=== PATIENT | female | born 1950 | race Caucasian/White ===

== ENCOUNTER 2020-01-21 10:45 | Inpatient (IN) | payer MEDICARE, MEDICAID, SELFPAY ==
[2020-01-21] VITALS (11 sets, daily range): BP systolic 114–152; BP diastolic 56–86; PULSE 75–92; RESP 16–30; TEMP 36.4–37.4; O2SAT 95–100; BMI 20.1
--- NOTE | ~2020-01-21 | CT_ITS ---
EXAMINATION: CTA chest PE protocol DATE: 01/23/2020 18:12 INDICATION: New onset atrial fibrillation TECHNIQUE: Computed tomography angiography (CTA) of the chest was performed with 100 mL Omnipaque-350 intravenous contrast timed to evaluate the pulmonary arteries. Coronal maximum intensity projection 3D-reconstructions were created by the technologist. The dose-length product (DLP) was 169.82 mGy-cm. Automated exposure control and iterative reconstruction technique were employed. COMPARISON: 01/21/2020 FINDINGS: The pulmonary arteries are well-opacified. No pulmonary embolism is identified. There are s mall pleural effusions. No pneumothorax is identified. No pathologically enlarged thoracic lymph node s are identified. The heart size is normal. Multinodular goiter of the left thyroid lobe is again not ed. The gallbladder is surgically absent. There are bridging osteophytes at multiple levels in the sp ine, consistent with diffuse idiopathic skeletal hyperostosis (DISH). IMPRESSION: 1. No pulmonary embolism. 2. Small pleural effusions. Reviewed, dictated and finalized at location A.
--- NOTE | ~2020-01-21 | XR_ITS ---
EXAMINATION: XR chest 2V DATE: 01/21/2020 11:31 INDICATION: Weakness. TECHNIQUE: Frontal and lateral views of the chest were obtained. COMPARISON: CT abdomen and pelvis 10/13/2018 FINDINGS: There is mild scarring at the lung apices. There is a 1 cm nodule in left upper lung zone. No pleural effusion or pneumothorax. The heart size is normal. Surgical clips in the right upper quad rant are likely from cholecystectomy. IMPRESSION: 1. 1 cm nodule in left upper lung zone suspicious for primary bronchogenic carcinoma. Noncontrast [facility] CT is recommended. I called this result to Roberta Daniel on 01/21/20 at 11:47 AM. Reviewed, dictated and finalized at location A. IMPRESSION: 1. 1 cm nodule in left upper lung zone suspicious for primary bronchogenic carc inoma. Noncontrast chest CT is recommended. I called this result to Roberta dhillon on 01/21/20 at 11:47 AM.
--- NOTE | ~2020-01-21 | XR_ITS ---
EXAMINATION: XR retrograde pyelo w/stent LT EXAM DATE: 01/21/2020 15:21 INDICATION: Left-sided stone extraction. TECHNIQUE: Fluoroscopy used during XR retrograde pyelo w/stent LT performed by Dr. Candy Barr MD. The DAP for this procedure was 0.3 mGym2. Cine run(s) available for review. FINDINGS: Left ureter was cannulated, injected. There is mild left hydronephrosis. No ureteral stric tures identified proximally, distal aspect not captured with static image. A left-sided ureteral sten t was placed. Correlate with procedure note. IMPRESSION: Fluoroscopy used during XR retrograde pyelo w/stent LT. Reviewed, dictated and finalized at location A.
--- NOTE | ~2020-01-21 | CT_ITS ---
EXAMINATION: CT chest abdomen pelvis wo con DATE: 01/21/2020 12:30 INDICATION: Lung nodule, right flank pain TECHNIQUE: Transaxial computed tomographic images of the chest, abdomen, and pelvis were obtained wit hout intravenous contrast. The dose-length product (DLP) was 308.40 mGy-cm. Automated exposure contro l and iterative reconstruction technique were employed. COMPARISON: 10/13/2018 FINDINGS: CHEST CT: Minimal dependent atelectasis is present in the lung bases. There are is a focal area of sclerosis in the left posterior fifth rib which accounts for the CT finding in question. No suspicious pulmonary nodule is identified. The lungs are free of acute opacities. No pathologically enlarged thoracic lymp h nodes are identified. The heart size is normal. There is no pleural effusion or pneumothorax. 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 There are bridging osteophytes at multiple levels i n the spine, consistent with diffuse idiopathic skeletal hyperostosis (DISH). ABDOMEN/PELVIS CT: The gallbladder is surgically absent. There is mild enlargement of the common bile duct and central i ntrahepatic ducts which is likely due to post cholecystectomy state. The liver, spleen, pancreas, and adrenal glands are normal. There is a 1.3 cm stone in the left renal pelvis with moderate left hydro ureteronephrosis. A 4.2 cm cyst is noted in the right kidney. There is calcified atherosclerosis of t he aorta and many of the other arteries. No pathologically enlarged abdominal or pelvic lymph nodes a re identified. Colonic diverticulosis is present without evidence of diverticulitis. The appendix is normal. There is mild lumbar spondylosis. IMPRESSION: 1. 1.3 cm stone of the left renal pelvis causing moderate left hydroureteronephrosis. 2. Tiny sclerotic focus of the left fifth rib, likely bone island, accounting for the radiographic fi nding in question. No suspicious pulmonary nodule. Reviewed, dictated and finalized at location A. IMPRESSION: 1. 1.3 cm stone of the left renal pelvis causing moderate left hydroureteroneph rosis. 2. Tiny sclerotic focus of the left fifth rib, likely bone island, accounting f or the radiographic finding in question. No suspicious pulmonary nodule.
--- NOTE | ~2020-01-21 | US_ITS ---
EXAMINATION: US right upper quadrant EXAM DATE: 01/22/2020 07:54 INDICATION: Elevated liver function test. TECHNIQUE: Multiple grayscale and Doppler images of the abdomen right upper quadrant were obtained (chano y a technologist who performed the scan) and subsequently reviewed. Correlation is made to CT chest a bdomen pelvis from 01/21/2020 . FINDINGS: The pancreatic head and body are normal in appearance. The pancreatic tail is not visualized. There is mild liver surface undulations without discrete nodularity. Possible cirrhosis. There are no foc al liver lesions identified. There is no evidence of intrahepatic biliary duct dilation. Portal ve nous flow was seen in the hepatopedal, normal direction and has normal Doppler waveform. No right-si ded hydronephrosis. Common bile duct measures 14 mm, which is dilated, could be results of postcholecystectomy status. Pa ncreatic duct measures 3-4 mm in diameter. IMPRESSION: 1. Some liver surface undulations, possible cirrhosis. 2. Biliary dilation most likely from post cholecystectomy status. If there is elevated bilirubin the n consider evaluation with MRCP. Reviewed, dictated and finalized at location G. IMPRESSION: 1. Some liver surface undulations, possible cirrhosis. 2. Biliary dilation most likely from post cholecystectomy status. If there is elevated bilirubin then consider evaluation with MRCP.
--- NOTE | ~2020-01-21 | US_ITS ---
EXAMINATION: US venous doppler LE BI EXAM DATE: 01/24/2020 12:02 INDICATION: Dysphagia. TECHNIQUE: Modified barium esophagram was performed by myself to administered fluoroscopy, in conjun ction with speech pathologist who administered barium in varying consistencies as per speech patholog ist documentation. This was recorded on tape. The DAP for this procedure was 0.7 Gycm2. FINDINGS: Oral stage: Adequate function. Pharyngeal phase: Adequate function. Laryngeal penetration: None. Aspiration: None. Laryngeal sensitivity: Present. IMPRESSION: Normal modified esophagram exam. Please refer to speech pathologist findings and specifi c feeding recommendations. Reviewed, dictated and finalized at location A. IMPRESSION: Normal modified esophagram exam. Please refer to speech pathologis t findings and specific feeding recommendations.
--- NOTE | 2020-01-21 11:02 | ED.AMS ---
HPI - Altered Mental Status General Chief Complaint: Altered Mental Status <EMILI Dodd Last Filed: 01/21/20 17:44> Stated Complaint: flank pain <EMILI Dodd Last Filed: 01/21/20 17:44> Time Seen by Provider: 01/21/20 10:51 <EMILI Dodd Last Filed: 01/21/20 17:44> Source: patient <EMILI Dodd Last Filed: 01/21/20 17:44> Mode of arrival: EMS <EMILI Dodd Last Filed: 01/21/20 17:44> Limitations: no limitations <EMILI Dodd Last Filed: 01/21/20 17:44> History of Present Illness HPI narrative: This is a 69-year-old female that presents to the emergency department for generalized weakness x1 week. Does not report any other localizing symptoms. Presented via EMS. Per EMS, family member reports patient has been complaining of right flank pain and has had some urinary incontinence. Patient denies fever, chest pain, shortness of breath, abdominal pain, vomiting, dysuria, or hematuria. <EMILI Dodd Last Filed: 01/21/20 17:44> Related Data Home Medications: Home Medications Medication Instructions Recorded Confirmed No Home Medications 01/21/20 01/21/20 <EMILI Dodd Last Filed: 01/21/20 17:44> Allergies/Adverse Reactions: Allergies Allergy/AdvReac Type Severity Reaction Status Date / Time No Known Allergies Allergy Verified 01/21/20 10:51 <EMILI Dodd Last Filed: 01/21/20 17:44> Review of Systems Review of Systems: Narrative: CONSTITUTIONAL: Denies fever ENT: Denies rhinorrhea, congestion CARDIOVASCULAR: Denies chest pain RESPIRATORY: Denies cough or dyspnea. GASTROINTESTINAL: Denies abdominal pain, nausea, vomiting GENITOURINARY: Denies dysuria or hematuria. MUSCULOSKELETAL: Reports back pain, and myalgia. NEUROLOGIC: Reports weakness. Denies headache, numbness <EMILI Dodd Last Filed: 01/21/20 17:44> All systems reviewed & are unremarkable except as noted in HPI and below <Roberta Daniel PA-C - Last Filed: 01/21/20 17:44> PMFSH Past Medical History Medical History: Medical History No active medical problems Renal insufficiency <Roberta Daniel PA-C - Last Filed: 01/21/20 17:44> Surgical History Surgical History: Surgical History History of cholecystectomy <Roberta Daniel PA-C - Last Filed: 01/21/20 17:44> Family History Family History: Family History Other Carcinoma of colon <Roberta Daniel PA-C - Last Filed: 01/21/20 17:44> Social History Social History: Social History Smoking packs per day: 1 Smoking cigarettes per day: 20.0 Years smoked: 10 Smoking pack-years: 10.00 Smoking status: Former smoker Tobacco type: cigarettes Smoking end date: 06/30/88 Alcohol intake: never Substance use: never Substance use type: does not use Spiritual care concerns: No <Roberta Daniel PA-C - Last Filed: 01/21/20 17:44> Exam Narrative: Exam Narrative: GENERAL: Elderly, well-nourished, and in no acute distress. HEAD: Normocephalic, atraumatic. EYES: PERRLA and EOMI. ENT: Nares clear, no rhinorrhea or epistaxis. Mucous membranes moist. Oropharynx without tonsillar hypertrophy exudate or other lesions. Bilateral TMs pearly keller non-bulging NECK: Supple. No adenopathy or masses. CHEST: Clear to auscultation. No respiratory distress. No wheezes rales or rhonchi HEART: Regular rate and rhythm. No murmur heard. Normal peripheral pulses. ABDOMEN: Soft, nontender, nondistended, normal active bowel sounds. No CVA tenderness EXTREMITIES: Normal range of motion. No edema. SKIN: Warm, dry, no rash. NEURO: No focal deficits. Alert and oriented x3. Cranial nerves II throug
[2020-01-21 11:21] LABS: Basophils Percent Auto 0.3 % (0.2-1.2); Hematocrit 36.3 % (37.0-47.0); Hemoglobin 12.3 g/dL (12.0-15.0); Immature Granulocyte Absolute 0.08 K/mm3 (0.00-0.031); Immature Granulocyte Percent A 0.8 % (0-0.5); Lymphocytes Absolute Auto 0.49 K/mm3 (0.9-3.2); Lymphocytes Percent Auto 4.7 % (18.3-44.2); Mean Corpuscular HGB Conc 33.9 g/dl (32-36); Mean Corpuscular Hemoglobin 32.3 pg (26-34); Mean Corpuscular Volume 95.3 fl (80-100); Mean Platelet Volume 12.1 fl (7.4-10.4); Monocytes Absolute Auto 1.4 K/mm3 (0.1-0.6); Monocytes Percent Auto 13.4 % (2.6-8.5); Neutrophils Absolute Auto 8.4 K/mm3 (1.3-6.7); Neutrophils Percent Auto 80.8 % (45.5-73.1); Platelet Count Result 150 k/mm3 (150-375); Red Blood Count 3.81 M/mm3 (4.2-5.4); Red Cell Distribution Width 12.6 % (11.5-14.5); White Blood Count 10.4 K/mm3 (4.5-10.0)
--- NOTE | 2020-01-21 11:22 | ECG_ITS ---
Measurements Intervals [place] Rate: 81 P: 48 VT: 181 QRS: 41 QRSD: 101 T: 68 QT: 335 QTc: 391 Interpretive Statements SINUS RHYTHM EARLY PRECORDIAL R/S TRANSITION BASELINE ARTIFACT- I, III BORDERLINE ECG Electronically Signed On 01-21-2020 13:34:23 CDT by Best Newman D.O.
[2020-01-21 11:32] LABS: Lactic Acid Reflex 1.3 mmol/L (0.7-2.1)
[2020-01-21 11:34] LABS: Alanine Aminotransferase 36 U/L (4-35); Albumin Level 3.8 g/dL (3.5-5.1); Alkaline Phosphatase 118 U/L (38-126); Anion Gap 13.1 mmol/L (7-16); Aspartate Amino Transferase 67 U/L (14-36); Bilirubin,Total 1.6 mg/dL (0.2-1.3); Blood Urea Nitrogen 35 mg/dL (7-17); Calcium 10.6 mg/dL (8.4-10.2); Carbon Dioxide 25 mmol/L (22-30); Chloride 101 mmol/L (98-107); Estimated CRCL calculation 32 ml/min; Estimated Glomerular Filt Rate 40; Glucose 112 mg/dL (65-105); Potassium 4.1 mmol/L (3.4-5.0); Sodium 135 mmol/L (137-145)
[2020-01-21 11:38] LABS: Add Urine Microscopic? YES; Appearance Urine Cloudy (Clear); Bacteria Urine 3+ /hpf; Bilirubin Urine Negative (Negative); Blood Urine 2+ (Negative); Color Urine Amber (Yellow); Glucose Urine UA Negative (Negative); Ketones Urine Negative (Negative); Leukocyte Esterase Ur 3+ LEU/UL (Negative); Mucus Urine Few /lpf; Nitrate Urine Negative (Negative); Protein Urine 2+ mg/dL (Negative); Specific Grav Ur 1.021 (1.001-1.035); Squamous Epithelial Cell Urine Occasional /hpf (Few); WBC Clumps Urine Present /HPF; WBC Urine >75 /hpf
[2020-01-21] MEDS: SODIUM CHLORIDE 0.9% IV 1,000 ML 999 ML IV CONT (12:46)
--- NOTE | 2020-01-21 14:10 | WPDANESEPPF ---
Anes - Initial Pre Proc Eval Procedure: Operation Date: 01/21/20 14:30 Proposed Procedures p CYSTOSCOPY,LEFT STENT PLACEMENT - Candy Barr MD Date/Time: 01/21/20 14:10 Pre Op Diagnosis: UTI, MICAELA, Renal Stone Patient Data Age: 69 Gender: F Height: 1.68 m Weight: 56.7 kg Last Vital Signs Temp 37.1 C 01/21/20 10:46 Pulse 83 01/21/20 14:00 Resp 16 01/21/20 14:00 BP 142/78 H 01/21/20 14:00 Pulse Ox 98 01/21/20 14:00 Allergies Allergy/AdvReac Type Severity Reaction Status Date / Time No Known Allergies Allergy Verified 01/21/20 10:51 Home Medications Medication Instructions Recorded Confirmed Type apixaban [Eliquis] 5 mg PO Q12HR #60 tablet 01/24/20 Rx cefdinir 300 mg PO Q12H 11 Days #22 cap 01/24/20 Rx cyanocobalamin (vitamin B-12) 1,000 mcg PO QAM #30 tablet 01/24/20 Rx [Vitamin B-12] metoprolol succinate 12.5 mg PO QAM #30 tablet 01/24/20 Rx Laboratory Tests 01/21/20 01/21/20 01/21/20 11:14 11:14 11:14 WBC 10.4 K/mm3 H K/mm3 (4.5-10.0) RBC 3.81 M/mm3 L M/mm3 (4.2-5.4) Hgb 12.3 g/dL g/dL (12.0-15.0) Hct 36.3 % L % (37.0-47.0) MCV 95.3 fl fl (80-100) MCH 32.3 pg pg (26-34) MCHC 33.9 g/dl g/dl (32-36) RDW 12.6 % % (11.5-14.5) Plt Count 150 k/mm3 k/mm3 (150-375) MPV 12.1 fl H fl (7.4-10.4) Immature Gran % (Auto) 0.8 % H % (0-0.5) Neut % (Auto) 80.8 % H % (45.5-73.1) Lymph % (Auto) 4.7 % L % (18.3-44.2) [place] % (Auto) 13.4 % H % (2.6-8.5) Eos % (Auto) 0.0 % % (0-4.4) Baso % (Auto) 0.3 % % (0.2-1.2) Lymph # (Auto) 0.49 K/mm3 L K/mm3 (0.9-3.2) [place] # (Auto) 1.4 K/mm3 H K/mm3 (0.1-0.6) Eos # (Auto) 0.0 K/mm3 K/mm3 (0-0.3) Baso # (Auto) 0.0 K/mm3 K/mm3 (0.0-0.1) Abs Immat Gran (auto) 0.08 K/mm3 H K/mm3 (0.00-0.031) Absolute Neuts (auto) 8.4 K/mm3 H K/mm3 (1.3-6.7) Absolute Nucleated RBC 0.0 K/mm3 K/mm3 (0.0-0.012) Nucleated RBC % 0.0 % % (0.0-0.2) Sodium 135 mmol/L L mmol/L (137-145) Potassium 4.1 mmol/L mmol/L (3.4-5.0) Chloride 101 mmol/L mmol/L (98-107) Carbon Dioxide 25 mmol/L mmol/L (22-30) Anion Gap 13.1 mmol/L mmol/L (7-16) BUN 35 mg/dL H mg/dL (7-17) Creatinine 1.30 mg/dL H mg/dL (0.7-1.0) Estim Creat Clear Calc 32 ml/min ml/min Estimated GFR 40 L (59 - ) Glucose 112 mg/dL H mg/dL (65-105) Lactic Acid 1.3 mmol/L mmol/L (0.7-2.1) Calcium 10.6 mg/dL H mg/dL (8.4-10.2) Total Bilirubin 1.6 mg/dL H mg/dL (0.2-1.3) AST 67 U/L H U/L (14-36) ALT 36 U/L H U/L (4-35) Alkaline Phosphatase 118 U/L U/L (38-126) Total Protein 7.0 g/dL g/dL (6.3-8.2) Albumin 3.8 g/dL g/dL (3.5-5.1) Urine Color Urine Appearance Urine pH Ur Specific [place] Urine Protein Urine Glucose (UA) Urine Ketones Ur Blood (Man) Urine Nitrate Urine Bilirubin Urine Urobilinogen Leukocyte Esterase Rfl Urine RBC Urine WBC Urine WBC Clumps Ur Squamous Epith Cells Urine Bacteria Urine Mucus 01/21/20 11:17 WBC RBC Hgb Hct MCV MCH MCHC RDW Plt Count MPV Immature Gran % (Auto) Neut % (Auto) Lymph % (Auto) [place] % (Auto) Eos % (Auto) Baso % (Auto) Lymph # (Auto) [place] # (Auto) Eos # (Auto) Baso # (Auto) Abs Immat Gran (auto) Absolute Neuts (auto) Absolute Nucleate
--- NOTE | 2020-01-21 14:25 | PC.NURSE ---
To preop via wc. Condition stable.
[2020-01-21] MEDS: LACTATED RINGERS 1,000 ML 30 ML IV CONT (14:30)
--- NOTE | 2020-01-21 14:30 | WPDURCON ---
Assessment and Plan Assessment and plan (1) UTI (urinary tract infection): Code(s): N39.0 - Urinary tract infection, site not specified Status: Acute (2) Left renal stone: Code(s): N20.0 - Calculus of kidney Status: Acute Assessment and Plan: 13mm left UPJ stone with hydronephrosis and UTI with acute renal insufficency - plan cystoscopy and left ureteral stent insertion. Risks, benefits and alternatives discussed. Pt agrees to proceed. She understands need for deferred definitive stone management after clearance of infection. - Admit for IV antibiotics (3) Renal insufficiency: Code(s): N28.9 - Disorder of kidney and ureter, unspecified Status: Inactive Urology Consult Note HPI Date Seen: 01/21/20 Requesting Physician: Candy Barr MD 69 yo F presented to ER with complaints of dysuria and concern for UTI. She was found to have left renal stone on imaging. Primary Care Provider: [employer] PHYSICIAN Consult Narrative Narrative: Juany Quintero is a 69 year old female Review of Systems Constitutional: Constitutional: Reports no additional constitutional complaints Eyes: Eyes: Reports no additional eye complaints ENT: Reports Normal hearing present Cardiovascular: Cardiovascular: Reports no additional cardiovascular complaints Respiratory: Respiratory: Reports no additional respiratory complaints Gastrointestinal: Gastrointestinal: Reports no additional gastrointestinal complaints Genitourinary: Genitourinary: Reports nocturia and Reports dysuria Musculoskeletal: Musculoskeletal: Reports no additional musculoskeletal complaints Neurologic: Reports system reviewed and no additional complaints, except as documented Psychiatric: Psychiatric: Reports no additional psychiatric complaints [facility] Past Medical History Medical History (Updated 01/21/20 @ 14:42 by Kwabena Duran MD) No active medical problems Renal insufficiency Surgical History Surgical History (Updated 01/21/20 @ 11:05 by Roberta Daniel PA-C) History of cholecystectomy Family History Family History (Updated 11/04/18 @ 10:17 by DOCTOR UNKNOWN) Other Carcinoma of colon Social History Social History Smoking status: Former smoker Smoking end date: 06/30/88 Alcohol intake: never Meds Home Medications and Allergies Home Medications Medication Instructions Recorded Confirmed Type No Home Medications 01/21/20 01/21/20 History Allergies Allergy/AdvReac Type Severity Reaction Status Date / Time No Known Allergies Allergy Verified 01/21/20 10:51 Vital Signs Vital Signs - 24 hr 01/21/20 10:46 01/21/20 14:00 Temperature 98.8 F Pulse Rate 82 83 Respiratory Rate 16 16 Blood Pressure 139/86 142/78 H Pulse Oximetry 98 98 Exam Const: General: no acute distress HENMT: Ears: TM's normal bilaterally Eyes: General: appearance normal, both eyes and all related structures Resp: Auscultation: clear to auscultation bilaterally Cardio: Rate: regular rate Rhythm: regular rhythm Results Labs CBC & Chem 7: 01/21/20 11:14 01/21/20 11:14 Labs: Short CBC 01/21/20 Range/Units 11:14 WBC 10.4 H (4.5-10.0) K/mm3 Hgb 12.3 (12.0-15.0) g/dL Hct 36.3 L (37.0-47.0) % Plt Count 150 (150-375) k/mm3 BMP 01/21/20 11:14 Sodium 135 L Potassium 4.1 Chloride 101 Carbon Dioxide 25 BUN 35 H Creatinine 1.30 H Glucose 112 H Calcium 10.6 H Liver Function 01/21/20 Range/Units 11:14 Total Bilirubin 1.6 H (0.2-1.3) mg/dL AST 67 H (14-36) U/L ALT 36 H (4-35) U/L Alkaline Phosphatase 118 (38-126) U/L Albumin 3.8 (3.5-5.1) g/dL Urine 01/21/20 Range/Units 11:17 Urine Color [place] (Yellow) Urine Appearance Cloudy H (Clear) Urine pH 5.0 (5.0-9.0) Ur Specific [place] 1.021 (1.001-1.035) Urine Protein 2+ H (Negative) mg/dL Urine Glucose (UA
--- NOTE | 2020-01-21 14:41 | WPDANESEPPF ---
Anes - Initial Pre Proc Eval Procedure: Operation Date: 01/21/20 14:30 Proposed Procedures p CYSTOSCOPY,LEFT STENT PLACEMENT - Candy Barr MD Date/Time: 01/21/20 14:41 Surgeon: Candy Barr MD Pre Op Diagnosis: flank pain Patient Data Age: 69 Gender: F Height: 5 ft 6 in Weight: 56.7 kg Last Vital Signs Temp 37.1 C 01/21/20 10:46 Pulse 83 01/21/20 14:00 Resp 16 01/21/20 14:00 BP 142/78 H 01/21/20 14:00 Pulse Ox 98 01/21/20 14:00 Allergies Allergy/AdvReac Type Severity Reaction Status Date / Time No Known Allergies Allergy Verified 01/21/20 10:51 Home Medications Medication Instructions Recorded Confirmed Type No Home Medications 01/21/20 01/21/20 History Laboratory Tests 01/21/20 01/21/20 01/21/20 11:14 11:14 11:14 WBC 10.4 K/mm3 H K/mm3 (4.5-10.0) RBC 3.81 M/mm3 L M/mm3 (4.2-5.4) Hgb 12.3 g/dL g/dL (12.0-15.0) Hct 36.3 % L % (37.0-47.0) MCV 95.3 fl fl (80-100) MCH 32.3 pg pg (26-34) MCHC 33.9 g/dl g/dl (32-36) RDW 12.6 % % (11.5-14.5) Plt Count 150 k/mm3 k/mm3 (150-375) MPV 12.1 fl H fl (7.4-10.4) Immature Gran % (Auto) 0.8 % H % (0-0.5) Neut % (Auto) 80.8 % H % (45.5-73.1) Lymph % (Auto) 4.7 % L % (18.3-44.2) [place] % (Auto) 13.4 % H % (2.6-8.5) Eos % (Auto) 0.0 % % (0-4.4) Baso % (Auto) 0.3 % % (0.2-1.2) Lymph # (Auto) 0.49 K/mm3 L K/mm3 (0.9-3.2) [place] # (Auto) 1.4 K/mm3 H K/mm3 (0.1-0.6) Eos # (Auto) 0.0 K/mm3 K/mm3 (0-0.3) Baso # (Auto) 0.0 K/mm3 K/mm3 (0.0-0.1) Abs Immat Gran (auto) 0.08 K/mm3 H K/mm3 (0.00-0.031) Absolute Neuts (auto) 8.4 K/mm3 H K/mm3 (1.3-6.7) Absolute Nucleated RBC 0.0 K/mm3 K/mm3 (0.0-0.012) Nucleated RBC % 0.0 % % (0.0-0.2) Sodium 135 mmol/L L mmol/L (137-145) Potassium 4.1 mmol/L mmol/L (3.4-5.0) Chloride 101 mmol/L mmol/L (98-107) Carbon Dioxide 25 mmol/L mmol/L (22-30) Anion Gap 13.1 mmol/L mmol/L (7-16) BUN 35 mg/dL H mg/dL (7-17) Creatinine 1.30 mg/dL H mg/dL (0.7-1.0) Estim Creat Clear Calc 32 ml/min ml/min Estimated GFR 40 L (59 - ) Glucose 112 mg/dL H mg/dL (65-105) Lactic Acid 1.3 mmol/L mmol/L (0.7-2.1) Calcium 10.6 mg/dL H mg/dL (8.4-10.2) Total Bilirubin 1.6 mg/dL H mg/dL (0.2-1.3) AST 67 U/L H U/L (14-36) ALT 36 U/L H U/L (4-35) Alkaline Phosphatase 118 U/L U/L (38-126) Total Protein 7.0 g/dL g/dL (6.3-8.2) Albumin 3.8 g/dL g/dL (3.5-5.1) Urine Color Urine Appearance Urine pH Ur Specific [place] Urine Protein Urine Glucose (UA) Urine Ketones Ur Blood (Man) Urine Nitrate Urine Bilirubin Urine Urobilinogen Leukocyte Esterase Rfl Urine RBC Urine WBC Urine WBC Clumps Ur Squamous Epith Cells Urine Bacteria Urine Mucus 01/21/20 11:17 WBC RBC Hgb Hct MCV MCH MCHC RDW Plt Count MPV Immature Gran % (Auto) Neut % (Auto) Lymph % (Auto) [place] % (Auto) Eos % (Auto) Baso % (Auto) Lymph # (Auto) [place] # (Auto) Eos # (Auto) Baso # (Auto) Abs Immat Gran (auto) Absolute Neuts (auto) Absolute Nucleated RBC Nucleated RBC % Sodium Potassium Chloride Carbon Dioxide Anion Gap BUN Creatinine Estim Creat Clear Calc Estimated GF
[2020-01-21] MEDS: LIDOCAINE HCL 2% GEL UROJET 10 ML PKG MUCOUS MEM (15:00)
--- NOTE | 2020-01-21 16:46 | ADMGEN ---
This patient, Juany Quintero, was admitted to 2 Medical Room 257-01. Patient/family oriented to hospital policies and general routines including ID bracelet, bed and alarms, visiting hours, pain management, procedures, bathroom and other care routines, personal items, smoking policy, room service/diet, and visiting hours. Valuables list has been completed. Information on how to activate the Rapid Response Team has been discussed. Patient/Family are encouraged to report perceived risks to care and to ask questions if they do not understand what they are told or what they should do.
[2020-01-21] MEDS: SODIUM CHLORIDE 0.9% IV 1,000 ML 125 ML IV CONT (17:30)
--- NOTE | 2020-01-21 19:00 | PM.IMHP ---
H&P: HPI History of Present Illness Chief complaint: flank pain Narrative: Juany Quintero is a 69-year-old female without significant medical history who presented to the emergency department earlier this afternoon via EMS from home for evaluation of right flank pain. For approximately 1 week she has had intermittent right flank pain that she describes as an ache. It has not been severe enough for her to take analgesics. The pain does not radiate. She has not noticed any significant aggrevating or alleviating factors. Associated symptoms include a decreased appetite, low energy, fatigue , and urinary incontinence. Her family members finally talked her into coming to the emergency department today and she was found to have a 1.3 centimeter left renal pelvis stone with moderate left hydroureteronephrosis. She is now status post cystoscopy with ureteral stent per Dr. Barr. At the time my evaluation she is sleepy but other than that has no complaints. She did eat a small amount of dinner this evening. She denies fever, chills, sweats, nausea, and vomiting. No dysuria or hematuria. No previous history of kidney stones. Review of Systems Review of Systems: Narrative: Twelve systems were reviewed with pertinent positives and negatives as per HPI. No recent cold or flu symptoms. She denies travel and sick contacts. No cough or shortness of breath. She did have some loose stools earlier this morning. Except as documented, all other systems were reviewed and are negative. [facility] Past Medical History Medical History (Updated 01/21/20 @ 23:02 by Fiona Smith PA-C) Nephrolithiasis Osteoarthritis Surgical History Surgical History History of cholecystectomy Family History Family History (Updated 01/21/20 @ 22:57 by Fiona Smith PA-C) Mother Carcinoma of colon Social History Social History (Updated 01/21/20 @ 22:58 by Fiona Smith PA-C) Social History: Surrogate decision maker: Loretta Maya, daughter. Code status: Full code. Smoking packs per day: 1 Smoking cigarettes per day: 20.0 Years smoked: 10 Smoking pack-years: 10.00 Smoking status: Former smoker Tobacco type: cigarettes Smoking end date: 06/30/88 Alcohol intake: never Substance use: never Substance use type: does not use Additional living arrangements comments: The patient lives in [place] with her grandson and 2 dogs. 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 Spiritual care concerns: No Meds Home Medications and Allergies Home Medications Medication Instructions Recorded Confirmed Type No Home Medications 01/21/20 01/21/20 History Allergies Allergy/AdvReac Type Severity Reaction Status Date / Time No Known Allergies Allergy Verified 01/21/20 10:51 Vital Signs Vital Signs - 24 hr 01/21/20 10:46 01/21/20 14:00 01/21/20 14:30 Temperature 98.8 F 98.8 F Pulse Rate 82 83 90 Respiratory Rate 16 16 Blood Pressure 139/86 142/78 H 139/72 Pulse Oximetry 98 98 100 01/21/20 15:18 01/21/20 15:30 01/21/20 15:45 Temperature 97.5 F L Pulse Rate 85 78 80 Respiratory Rate 30 H 27 H 24 H Blood Pressure 114/77 137/71 140/71 Pulse Oximetry 100 95 96 01/21/20 16:00 01/21/20 16:15 01/21/20 16:30 Temperature Pulse Rate 80 82 75 Respiratory Rate 20 20 16 Blood Pressure 142/72 H 144/76 H 147/66 H Pulse Oximetry 98 97 98 01/21/20 16:51 01/21/20 20:00 Temperature 97.8 F 99.4 F Pulse Rate 83 92 Respiratory Rate 20 20 Blood Pressure 152/67 H 152/56 H Pulse Oximetry 99 97 Exam Narrative: Exam Narrative: General: Well-developed elderly female sitting up in bed in no distress. Weight: 56.7 Kilograms. BMI: 20.2. HEENT: She is slightly hard of hearing. Wearing corrective lenses. PERRL, EOMI. Sclerae anicteric. Oral mucosa tacky. Neck: Supple. Respiratory: Lungs are clear to
--- NOTE | 2020-01-21 20:48 | OP_ITS ---
DATE OF PROCEDURE: 01/21/2020 PREOPERATIVE DIAGNOSES: Left ureteral stone with hydronephrosis and urinary tract infection. POSTOPERATIVE DIAGNOSIS: Left ureteral stone with hydronephrosis and urinary tract infection. PROCEDURE PERFORMED: 1. Cystoscopy. 2. Left retrograde pyelogram. 3. Left ureteral stent insertion. DESCRIPTION OF PROCEDURE: Informed consent was obtained. The patient was taken to the operating room and given preoperative IV antibiotics. She was induced anesthesia and she was placed in dorsal lithotomy position, prepped and draped in normal sterile fashion. We inserted a 22-Irish cystoscope through the urethra in the bladder. There was diffuse irritation consistent with the patient's known UTI. There were no tumors or lesions. The patient has bilateral orthotopic orifices. We cannulated the orifices with the wire. We then performed a retrograde pyelogram that revealed moderate left hydronephrosis of the large UPJ stone. I was able to manipulate the wire past the stone. We then placed a 4.8 variable length stent with a curl in renal pelvis, curl in the bladder. The bladder was emptied via the Os[place] catheter. The patient was taken to recovery in stable condition. IV FLUIDS: Per Anesthesia. COMPLICATIONS: None. ESTIMATED BLOOD LOSS: Minimal. FOLLOWUP: The patient will be admitted to the hospital for IV antibiotics. We will plan for definitive stone management as an outpatient. Shaquille I MT: Felipe
[2020-01-21] MEDS: SODIUM CHLORIDE 0.9% IV 1,000 ML 75 ML IV CONT (23:25)
[2020-01-22] VITALS (8 sets, daily range): BP systolic 100–123; BP diastolic 51–71; PULSE 69–110; RESP 16–20; TEMP 36.1–37.5; O2SAT 95–99
--- NOTE | 2020-01-22 | ECHO_ITS ---
Patient Info Name: Juany Quintero Age: 69 years : 1950 Gender: Female Ht: 66 in Wt: 125 lbs BSA: 1.62 m2 HR: 94 bpm BP: 106 / 65 mmHg Heart Rhythm: Atrial Fibrillation Technical Quality: Good Exam Date: 01/22/2020 2:26 PM Exam Location: [facility] Patient Status: Outpatient Admit Date: 01/21/2020 Staff Ordering Physician: Demetria Dockery PA-C Senior Research Analyst: Amelia Hernandez RDCS Attending Provider: Demetria Dockery PA-C Referring Physician: Nahed LEE; Exam Type: CA echo doppler color flow Summary 1. Left ventricular systolic function is normal, estimated at 55-60%. 2. There is no increased left ventricular wall thickness. 3. Right ventricular systolic function is mildly reduced, TAPSE 1.7. 4. Right ventricular chamber dimension is normal. 5. Prominent moderator band. 6. There is no aortic valve stenosis. 7. There is mild mitral valve regurgitation. 8. There is mild tricuspid valve regurgitation. 9. No pulmonary hypertension, estimated pulmonary arterial systolic pressure is 18 mmHg. Left Ventricle Left ventricular chamber dimension is normal. Left ventricular systolic function is normal, estimated at 55-60%. There is no increased left ventricular wall thickness. The left ventricular diastolic function is indeterminate. Right Ventricle Right ventricular chamber dimension is normal. Right ventricular systolic function is mildly reduced, TAPSE 1.7. Prominent moderator band. Left Atria Left atrial chamber dimension is normal. Right Atria Right atrial chamber dimension is normal. Aortic Valve The aortic valve is trileaflet. There is mild aortic valve sclerosis. There is no aortic valve stenosis. There is trace aortic valve regurgitation. Pulmonic Valve The pulmonic valve is not well visualized. There is trace pulmonic regurgitation. Mitral Valve The mitral valve has normal leaflets. There is mild mitral valve regurgitation. The mitral valve annulus is mildly calcified. Tricuspid Valve The tricuspid valve leaflets are normal. There is mild tricuspid valve regurgitation. No pulmonary hypertension, estimated pulmonary arterial systolic pressure is 18 mmHg. Pericardium/Pleural The pericardium appears normal. There is no pericardial effusion. Inferior Vena Cava Normal inferior vena cava with >50% collapse upon inspiration consistent with normal right atrial pressure, 5 mmHg. Aorta The aortic root size at the sinus of Valsalva is normal. There is mild aortic atherosclerosis. Left Ventricular Outflow Tract Name Value Normal LVOT 2D LVOT Diameter 1.9 cm LVOT Doppler LVOT Peak Gradient 1 mmHg LVOT Mean Gradient 0 mmHg LVOT VTI 12 cm LVOT VTI/AV VTI Ratio 0.7 LVOT Stroke Volume 32 ml LVOT CO 3.5 l/min LVOT CI 2.2 l/min/m2 Pulmonic Valve Name
[2020-01-22 05:52] LABS: Basophils Percent Auto 0.2 % (0.2-1.2); Eosinophils Percent Auto 0.3 % (0-4.4); Hematocrit 35.7 % (37.0-47.0); Hemoglobin 11.7 g/dL (12.0-15.0); Immature Granulocyte Absolute 0.07 K/mm3 (0.00-0.031); Immature Granulocyte Percent A 0.8 % (0-0.5); Lymphocytes Absolute Auto 0.63 K/mm3 (0.9-3.2); Lymphocytes Percent Auto 6.8 % (18.3-44.2); Mean Corpuscular HGB Conc 32.8 g/dl (32-36); Mean Corpuscular Hemoglobin 31.7 pg (26-34); Mean Corpuscular Volume 96.7 fl (80-100); Mean Platelet Volume 12.2 fl (7.4-10.4); Monocytes Absolute Auto 1.2 K/mm3 (0.1-0.6); Monocytes Percent Auto 13.5 % (2.6-8.5); Neutrophils Absolute Auto 7.2 K/mm3 (1.3-6.7); Neutrophils Percent Auto 78.4 % (45.5-73.1); Platelet Count Result 157 k/mm3 (150-375); Red Blood Count 3.69 M/mm3 (4.2-5.4); Red Cell Distribution Width 12.8 % (11.5-14.5); White Blood Count 9.2 K/mm3 (4.5-10.0)
[2020-01-22 06:50] LABS: Alanine Aminotransferase 48 U/L (4-35); Albumin Level 3.1 g/dL (3.5-5.1); Alkaline Phosphatase 111 U/L (38-126); Anion Gap 8.8 mmol/L (7-16); Aspartate Amino Transferase 86 U/L (14-36); Bilirubin,Total 1.1 mg/dL (0.2-1.3); Blood Urea Nitrogen 24 mg/dL (7-17); Calcium 10.1 mg/dL (8.4-10.2); Carbon Dioxide 26 mmol/L (22-30); Chloride 106 mmol/L (98-107); Estimated CRCL calculation 41 ml/min; Estimated Glomerular Filt Rate 55; Glucose 100 mg/dL (65-105); Potassium 3.8 mmol/L (3.4-5.0); Sodium 137 mmol/L (137-145)
[2020-01-22 07:26] LABS: Hepatitis B Surface Antigen Negative (Negative)
[2020-01-22] MEDS: SODIUM CHLORIDE 0.9% IV 1,000 ML 75 ML IV CONT (07:26)
[2020-01-22 07:31] LABS: HAV RESULT Negative (Negative); Hepatitis B Core IgM Result Negative (Negative)
[2020-01-22 07:43] LABS: Hepatitis C Virus Antibody Negative (Negative)
--- NOTE | 2020-01-22 09:32 | WPDUROPN2 ---
Progress Note: A&P Assessment and Plan (1) Urinary tract infection: Code(s): N39.0 - Urinary tract infection, site not specified Status: Acute (2) Hydroureteronephrosis: Code(s): N13.30 - Unspecified hydronephrosis Status: Acute (3) Left renal stone: Code(s): N20.0 - Calculus of kidney Status: Acute Assessment and Plan: POD#1 s/p L stent placement - remove keyes - continue IV abx; awaiting urine and blood cx results - will need definitive ESWL with Dr. Barr as an outpt once infection resolves. Subjective Subjective Date/Time Seen: 01/22/20 09:32 POD#1 s/p L stent placement. Doing well. No pain. Keyes is bothering her. Awaiting culture results Review of Systems Review of Systems: All systems reviewed & are unremarkable except as noted in HPI and below Exam Narrative: Exam Narrative: 69 yo WF in NAD Const: General: cooperative, healthy appearing and no acute distress HENMT: Head: normal to inspection Ears: hearing grossly normal bilaterally Neck: Neck: normal visual inspection Resp: Effort & Inspection: normal respiratory effort GI: Inspection: normal to inspection GI Palp: No abdominal tenderness Urinary Catheter: Urinary Catheter: patent and draining (yoni urine) Neuro: General: patient oriented x3 Objective Data Vital Signs Vital Signs: Vital Signs - 24 hr 01/21/20 10:46 01/21/20 14:00 01/21/20 14:30 Temperature 37.1 C 37.1 C Pulse Rate 82 83 90 Respiratory Rate 16 16 Blood Pressure 139/86 142/78 H 139/72 Pulse Oximetry 98 98 100 01/21/20 15:18 01/21/20 15:30 01/21/20 15:45 Temperature 36.4 C L Pulse Rate 85 78 80 Respiratory Rate 30 H 27 H 24 H Blood Pressure 114/77 137/71 140/71 Pulse Oximetry 100 95 96 01/21/20 16:00 01/21/20 16:15 01/21/20 16:30 Temperature Pulse Rate 80 82 75 Respiratory Rate 20 20 16 Blood Pressure 142/72 H 144/76 H 147/66 H Pulse Oximetry 98 97 98 01/21/20 16:51 01/21/20 20:00 01/22/20 01:12 Temperature 36.6 C 37.4 C 36.8 C Pulse Rate 83 92 Respiratory Rate 20 20 Blood Pressure 152/67 H 152/56 H Pulse Oximetry 99 97 01/22/20 06:11 Temperature 36.1 C L Pulse Rate 104 H Respiratory Rate 18 Blood Pressure 100/51 L Pulse Oximetry 95 Intake/Output Intake/Output: Intake & Output 01/19/20 01/20/20 01/21/20 01/22/20 23:59 23:59 23:59 23:59 Intake Total 1670 1000 Output Total 50 750 Balance 1620 250 Meds/Results Medications: Active Medications Generic Name Dose Route Start Last Admin Trade Name Freq PRN Reason Stop Dose Admin Hydrocodone Bitart/Acetaminophen 1 tab 01/21/20 16:34 01/22/20 05:07 [place] 5-325 Mg PO 1 tab Q4H PRN Administration Pain Rated 4-6 Fentanyl Citrate 25 mcg 01/21/20 14:08 Sublimaze IV PUSH Q2M PRN Pain Hydromorphone HCl 0.25 mg 01/21/20 14:08 Dilaudid Inj IV PUSH Q5M PRN Pain Ceftriaxone Sodium/Dextrose 1 gm in 50 mls @ 100 mls/hr 01/22/20 12:00 Rocephin 1 Gm/D5w 50 Ml IVPB Q24H DAYDAY Sodium Chloride 1,000 mls @ 75 mls/hr 01/21/20 23:10 01/22/20 07:26 Normal Saline Iv IV CONT 75 mls/hr .[id number] DAYDAY Administration Ondansetron HCl 4 mg 01/21/20 14:08 Zofran Inj IV PUSH ONCE PRN Nausea Radiology Results: ITS Impressions Chest X-Ray 01/21/20 11:45 IMPRESSION: 1. 1 cm nodule in left upper lung zone suspicious for primary bronchogenic carcinoma. Noncontrast chest CT is recommended. I called this result to Roberta Daniel on 01/21/20 at 11:47 AM. Chest/Abdomen/Pelvis CT 01/21/20 12:35 IMPRESSION: 1. 1.3 cm stone of the left renal pelvis causing moderate left hydroureteronephrosis. 2. Tiny sclerotic focus of the left fifth rib, likely bone island, accounting for the radiographic finding in question. No suspicious pulmonary nodule. Retrograde Pyelogram 01/21/20 16:50 IMPRESSION: Fluoroscopy used during XR retrograde pyelo w/stent LT.
--- NOTE | 2020-01-22 11:50 | ECG_ITS ---
Measurements Intervals [place] Rate: 92 P: [place]: 0 QRS: 51 QRSD: 94 T: 73 QT: 333 QTc: 412 Interpretive Statements ATRIAL FIBRILLATION BASELINE ARTIFACT- AVL ABNORMAL ECG Electronically Signed On 01-22-2020 13:46:31 CDT by Best Newman D.O.
--- NOTE | 2020-01-22 13:12 | PM.IMPN ---
Progress Note: A&P Assessment and Plan (1) New onset a-fib: Code(s): I48.91 - Unspecified atrial fibrillation Status: Acute Assessment and Plan: ----- AFib noted on exam and confirmed on EKG. she does not have any history of atrial fibrillation but also does not go to the doctor. At this time it is likely from her infection but I will draw a TSH and get an echo just to be sure. Patient will be placed on Lovenox at this time and I will talk to care coordination about anticoagulation. Her CHADS2 Vasc score is 3. No rate controlling medications needed at this time as she has been rate controlled. We will watch her on telemetry to see if that changes. Plan for cardiology follow-up outpatient. I briefly spoke with Dr. Groves about plan of care and agrees with outpatient follow up. (2) Bacteremia: Code(s): R78.81 - Bacteremia Status: Acute Assessment and Plan: -----Noted in 1/2 blood cultures at this time. Likely 2/2 to UTI. Continue ceftriaxone and await identification. (3) Left renal stone: Code(s): N20.0 - Calculus of kidney Status: Acute Assessment and Plan: ----- 13mm stone noted in the left renal pelvis with associated moderate hydroureteronephrosis. She underwent cystoscopy 01/10 with left ureteral stent placement per Dr. Solano. Urology onboard. (4) Hydroureteronephrosis: Code(s): N13.30 - Unspecified hydronephrosis Status: Acute Assessment and Plan: -----Left-sided, secondary to above. Continue abx as stated above. (5) Acute kidney injury: Code(s): N17.9 - Acute kidney failure, unspecified Status: Acute Assessment and Plan: -----Resoleved. Likely 2/2 to dehydration and kidney stone. Continue IV fluids. (6) Urinary tract infection: Code(s): N39.0 - Urinary tract infection, site not specified Status: Acute Assessment and Plan: ----- Continue ceftriaxone, see above. (7) Elevated LFTs: Code(s): R79.89 - Other specified abnormal findings of blood chemistry Status: Acute Assessment and Plan: -----Mild and noted back in September 2018 as well. Renal u/s shows possible cirrhosis but no hx of alcohol abuse. could also be elevated d/t current infx. Hep panel normal. Follow. Time Spent With Patient Time with patient: 25 - 35 minutes Subjective Date/time seen: 01/22/20 13:12 Interval history: Pt is a 69-year-old female here for UTI bacteremia. Patient was seen today and has no complaints. She says she has not seen a doctor in many many years. She has no history of atrial fibrillation irregular heartbeat that she knows of. Her abdominal pain has resolved. Pt denies nausea, vomiting, fevers, chills, constipation, diarrhea, chest pain, sob, or abdominal pain. Review of Systems Review of Systems: All systems reviewed & are unremarkable except as noted in HPI and below Exam Narrative: Exam Narrative: General: Well developed well nourished patient resting comfortably in bed in NAD HEENT: normocephalic Neck: supple Neuro: Alert and oriented x4 CV: irregularly irregular on exam with no murmurs Resp:CTA Abd: Soft, non distended. No pain to palpation. Positive bowel sounds Extremities: No swelling, erythema, or pain to palpation. Objective Data Vital Signs Vital Signs: Vital Signs - 24 hr 01/21/20 14:00 01/21/20 14:30 01/21/20 15:18 Temperature 98.8 F 97.5 F L Pulse Rate 83 90 85 Respiratory Rate 16 30 H Blood Pressure 142/78 H 139/72 114/77 Pulse Oximetry 98 100 100 01/21/20 15:30 01/21/20 15:45 01/21/20 16:00 Temperature Pulse Rate 78 80 80 Respiratory Rate 27 H 24 H 20 Blood Pressure 137/71 140/71 142/72 H Pulse Oximetry 95 96 98 01/21/20 16:15 01/21/20 16:30 01/21/20 16:51 Temperature 97.8 F Pulse Rate 82 75 83 Respiratory Rate 20 16 20 Blood Pressure 144/76 H 147/66 H 152/67 H Pulse Oximetry 97 98 99 0
[2020-01-22] MEDS: ENOXAPARIN 60 MG/0.6 ML SYRINGE 55 MG SUB-Q (13:30)
--- NOTE | 2020-01-22 15:16 | WPDANESPN ---
Anes - Prog Note Post-Op Date/Time: 01/22/20 15:16 Cardiovascular status: normal Respiratory status: normal Airway patency: baseline Mental status: baseline Post-Op hydration status: normal Vital Signs: Last Vital Signs Temp 36.4 C 01/22/20 11:30 Pulse 95 01/22/20 12:21 Resp 16 01/22/20 11:30 BP 106/65 01/22/20 11:30 Pulse Ox 99 01/22/20 11:30 Pain Score (VAS): 0/10. Patient resting in bed at time of assessment, appears comfortable. I/O: Intake & Output 01/21/20 01/22/20 01/22/20 23:59 07:59 15:59 Intake Total 620 1000 150 Output Total 750 Balance 620 250 150 Laboratory Tests 01/22/20 05:28 01/22/20 05:28 01/22/20 01/22/20 01/22/20 05:28 05:28 05:28 WBC 9.2 RBC 3.69 L Hgb 11.7 L Hct 35.7 L MCV 96.7 MCH 31.7 MCHC 32.8 RDW 12.8 Plt Count 157 MPV 12.2 H Immature Gran % (Auto) 0.8 H Neut % (Auto) 78.4 H Lymph % (Auto) 6.8 L [place] % (Auto) 13.5 H Eos % (Auto) 0.3 Baso % (Auto) 0.2 Lymph # (Auto) 0.63 L [place] # (Auto) 1.2 H Eos # (Auto) 0.0 Baso # (Auto) 0.0 Abs Immat Gran (auto) 0.07 H Absolute Neuts (auto) 7.2 H Absolute Nucleated RBC 0.0 Nucleated RBC % 0.0 Sodium 137 Potassium 3.8 Chloride 106 Carbon Dioxide 26 Anion Gap 8.8 BUN 24 H D Creatinine 1.00 Estim Creat Clear Calc 41 Estimated GFR 55 L Glucose 100 Calcium 10.1 Total Bilirubin 1.1 AST 86 H ALT 48 H Alkaline Phosphatase 111 Total Protein 6.0 L Albumin 3.1 L Hepatitis A IgM Ab Negative Hep Bs Antigen Negative Hep B Core IgM Ab Negative Hepatitis C Ab Screen Negative Microbiology 01/21/20 11:17 Urine Catheterized Urine Culture - Preliminary Gram negative bacilli isolated 01/21/20 12:15 Blood Blood Culture - Preliminary 01/21/20 12:15 Blood Blood Culture - Preliminary Post-procedural complaints: none Patient Feedback: Patient satisfied with anesthetic care.
--- NOTE | 2020-01-22 16:43 | ECG_ITS ---
Measurements Intervals [place] Rate: 78 P: 62 [place]: 180 QRS: 31 QRSD: 94 T: 69 QT: 344 QTc: 393 Interpretive Statements SINUS RHYTHM NORMAL ECG Electronically Signed On 01-22-2020 20:18:27 CDT by Best Newman D.O.
[2020-01-23] VITALS (9 sets, daily range): BP systolic 128–144; BP diastolic 63–66; PULSE 58–76; RESP 14–18; TEMP 36.3–36.7; O2SAT 97–100
[2020-01-23] MEDS: ENOXAPARIN 60 MG/0.6 ML SYRINGE 55 MG SUB-Q ×2 (00:21→11:20)
[2020-01-23] MEDS: SODIUM CHLORIDE 0.9% IV 1,000 ML 75 ML IV CONT (00:23)
[2020-01-23 05:44] LABS: Hematocrit 30.6 % (37.0-47.0); Hemoglobin 9.9 g/dL (12.0-15.0); Mean Corpuscular HGB Conc 32.4 g/dl (32-36); Mean Corpuscular Hemoglobin 31.3 pg (26-34); Mean Corpuscular Volume 96.8 fl (80-100); Mean Platelet Volume 11.9 fl (7.4-10.4); Platelet Count Result 161 k/mm3 (150-375); Red Blood Count 3.16 M/mm3 (4.2-5.4); Red Cell Distribution Width 12.9 % (11.5-14.5); White Blood Count 7.4 K/mm3 (4.5-10.0)
[2020-01-23 06:23] LABS: LDL Cholesterol Direct 59 mg/dL
[2020-01-23 06:33] LABS: Alanine Aminotransferase 43 U/L (4-35); Albumin Level 2.8 g/dL (3.5-5.1); Alkaline Phosphatase 98 U/L (38-126); Anion Gap 8.4 mmol/L (7-16); Aspartate Amino Transferase 57 U/L (14-36); Bilirubin,Total 0.8 mg/dL (0.2-1.3); Blood Urea Nitrogen 17 mg/dL (7-17); CRP 18.8 mg/dL (<1.0); Calcium 9.7 mg/dL (8.4-10.2); Carbon Dioxide 26 mmol/L (22-30); Chloride 107 mmol/L (98-107); Cholesterol 130 mg/dL (0-200); Estimated CRCL calculation 45 ml/min; Estimated Glomerular Filt Rate > 60; Glucose 96 mg/dL (65-105); HDL Direct 16 mg/dL; Potassium 3.4 mmol/L (3.4-5.0); Sodium 138 mmol/L (137-145); Triglycerides 180 mg/dL (<150)
[2020-01-23] MEDS: POTASSIUM CHLORIDE 20 MEQ TABLET PO (08:56)
--- NOTE | 2020-01-23 13:52 | PM.IMPN ---
Progress Note: A&P Assessment and Plan (1) New onset a-fib: Code(s): I48.91 - Unspecified atrial fibrillation Status: Acute Assessment and Plan: ----- AFib noted on exam and confirmed on EKG. she does not have any history of atrial fibrillation but also does not go to the doctor. At this time it is likely from her infection. TSH WNL. Echo reviewed, no significant abnormalities. She did, however, have slight right ventiruclar strain, concerning for possible PE as the etiology? She has no pulmonary htn. d-dimer elevated, will obtain CTA. Continue lovenox at this time while figuring out which oral medication would be affordable. I am hesitent to start coumadin since she does not have a PCP and does not follow up well. Her CHADS2 Vasc score is 3. No rate controlling medications needed at this time as she has been rate controlled. We will watch her on telemetry to see if that changes. Plan for cardiology follow-up outpatient. Will likely give 1 month of eliquis and she can discuss with cardiology if they want to continue it at that point. I briefly spoke with Dr. Groves 01/21 about plan of care and agrees with outpatient follow up. (2) Bacteremia: Code(s): R78.81 - Bacteremia Status: Acute Assessment and Plan: -----Noted in 1/2 blood cultures at this time. 2/2 to UTI. Continue ceftriaxone and await identification. (3) Left renal stone: Code(s): N20.0 - Calculus of kidney Status: Acute Assessment and Plan: ----- 13mm stone noted in the left renal pelvis with associated moderate hydroureteronephrosis. She underwent cystoscopy 01/10 with left ureteral stent placement per Dr. Solano. Urology onboard. (4) Hydroureteronephrosis: Code(s): N13.30 - Unspecified hydronephrosis Status: Acute Assessment and Plan: -----Left-sided, secondary to above. Continue abx as stated above. (5) Acute kidney injury: Code(s): N17.9 - Acute kidney failure, unspecified Status: Acute Assessment and Plan: -----Resoleved. Likely 2/2 to dehydration and kidney stone. (6) Urinary tract infection: Code(s): N39.0 - Urinary tract infection, site not specified Status: Acute Assessment and Plan: ----- Continue ceftriaxone, see above. (7) Elevated LFTs: Code(s): R79.89 - Other specified abnormal findings of blood chemistry Status: Acute Assessment and Plan: -----Mild and noted back in September 2018 as well. Renal u/s shows possible cirrhosis but no hx of alcohol abuse. could also be elevated d/t current infx. Hep panel normal. Follow. Subjective Date/time seen: 01/23/20 13:53 Interval history: Pt is a 69-year-old female here for UTI bacteremia. Patient was seen today and has no complaints. Pt denies nausea, vomiting, fevers, chills, constipation, diarrhea, chest pain, sob, or abdominal pain. We discussed afib and the treatment plan. I called her daughter and spoke with her about insurance and plan of care. Exam Narrative: Exam Narrative: General: Well developed well nourished patient resting comfortably in bed in NAD HEENT: normocephalic Neck: supple Neuro: Alert and oriented x4 CV:RRR today.pt was in afib 01/21 at 1500 on tele and converted at 1700. no afib since. NSR rate 69 today. Resp:CTA Abd: Soft, non distended. No pain to palpation. Positive bowel sounds Extremities: No swelling, erythema, or pain to palpation. Objective Data Vital Signs Vital Signs: Vital Signs - 24 hr 01/22/20 14:00 01/22/20 15:38 01/22/20 16:00 Temperature 97.6 F Pulse Rate 110 H 97 78 Respiratory Rate 18 Blood Pressure 114/71 Pulse Oximetry 98 01/22/20 20:00 01/23/20 00:00 01/23/20 04:00 Temperature 99.5 F Pulse Rate 82 73 69 Respiratory Rate 20 Blood Pressure 123/61 Pulse Oximetry 96 01/23/20 04:26 01/23/20 08:00 01/23/20 12:00 Temperature 97.4 F L Pulse Ra
[2020-01-23 14:39] LABS: D Dimer 1.18 ug/mL (<0.48)
--- NOTE | 2020-01-23 14:44 | WPDUROPN2 ---
Progress Note: A&P Assessment and Plan (1) Bacteremia: Code(s): R78.81 - Bacteremia Status: Acute (2) Hydroureteronephrosis: Code(s): N13.30 - Unspecified hydronephrosis Status: Acute (3) Left renal stone: Code(s): N20.0 - Calculus of kidney Status: Acute Assessment and Plan: POD#2 s/p L stent placement - Ecoli in blood and urine. Will need 2 wks of abx - will need definitive ESWL with Dr. Barr as an outpt once infection resolves. Pt is to see cardiology as outpt about Afib but is being started on anticoagulation. I will notify Dr. Barr Subjective Subjective Date/Time Seen: 01/23/20 14:44 Doing well. No pain. Dx with Afib and has been started on anticoagulation. Review of Systems Review of Systems: All systems reviewed & are unremarkable except as noted in HPI and below Exam Const: General: cooperative, healthy appearing, comfortable and no acute distress HENMT: Head: normal to inspection Ears: hearing grossly normal bilaterally Eyes: General: appearance normal, both eyes and all related structures Resp: Effort & Inspection: normal respiratory effort GI: Inspection: normal to inspection GI Palp: No abdominal tenderness Objective Data Vital Signs Vital Signs: Vital Signs - 24 hr 01/22/20 15:38 01/22/20 16:00 01/22/20 20:00 Temperature 37.5 C Pulse Rate 97 78 82 Respiratory Rate 20 Blood Pressure 123/61 Pulse Oximetry 96 01/23/20 00:00 01/23/20 04:00 01/23/20 04:26 Temperature 36.3 C L Pulse Rate 73 69 74 Respiratory Rate 18 Blood Pressure 139/66 Pulse Oximetry 100 01/23/20 08:00 01/23/20 12:00 Temperature Pulse Rate 58 L 69 Respiratory Rate Blood Pressure Pulse Oximetry Intake/Output Intake/Output: Intake & Output 01/20/20 01/21/20 01/22/20 01/23/20 23:59 23:59 23:59 23:59 Intake Total 1670 1735 3022 Output Total 50 750 500 Balance 2203 591 4153 Meds/Results Medications: Active Medications Generic Name Dose Route Start Last Admin Trade Name Freq PRN Reason Stop Dose Admin Hydrocodone Bitart/Acetaminophen 1 tab 01/21/20 16:34 01/23/20 04:51 [place] 5-325 Mg PO 1 tab Q4H PRN Administration Pain Rated 4-6 Enoxaparin Sodium 55 mg 01/22/20 12:00 01/23/20 11:20 Lovenox SUB-Q 55 mg Q12H DAYDAY Administration Fentanyl Citrate 25 mcg 01/21/20 14:08 Sublimaze IV PUSH Q2M PRN Pain Hydromorphone HCl 0.25 mg 01/21/20 14:08 Dilaudid Inj IV PUSH Q5M PRN Pain Ceftriaxone Sodium 2 gm in 100 mls @ 200 mls/hr 01/23/20 12:00 01/23/20 12:03 Rocephin 2 Gm/D5w 100 Ml IVPB Infused NOON DAYDAY Infusion Ondansetron HCl 4 mg 01/21/20 14:08 Zofran Inj IV PUSH ONCE PRN Nausea Radiology Results: ITS Impressions Chest X-Ray 01/21/20 11:45 IMPRESSION: 1. 1 cm nodule in left upper lung zone suspicious for primary bronchogenic carcinoma. Noncontrast chest CT is recommended. I called this result to Roberta Daniel on 01/21/20 at 11:47 AM. Chest/Abdomen/Pelvis CT 01/21/20 12:35 IMPRESSION: 1. 1.3 cm stone of the left renal pelvis causing moderate left hydroureteronephrosis. 2. Tiny sclerotic focus of the left fifth rib, likely bone island, accounting for the radiographic finding in question. No suspicious pulmonary nodule. Retrograde Pyelogram 01/21/20 16:50 IMPRESSION: Fluoroscopy used during XR retrograde pyelo w/stent LT. Upper Quadrant Ultrasound 01/22/20 09:58 IMPRESSION: 1. Some liver surface undulations, possible cirrhosis. 2. Biliary dilation most likely from post cholecystectomy status. If there is elevated bilirubin then consider evaluation with MRCP. Labs Labs: Laboratory Results - last 24 hr 01/23/20 01/23/20 01/23/20 05:28 05:28 05:28 WBC 7.4 RBC 3.16 L Hgb 9.9 L Hct 30.6 L MCV 96.8 MCH 31.3 MCHC 32.4 RDW 12.9 Plt Count 161 MPV 11.9
[2020-01-23 17:01] LABS: Hematocrit 32.1 % (37.0-47.0); Hemoglobin 10.6 g/dL (12.0-15.0)
--- NOTE | 2020-01-23 18:54 | PC.NURSE ---
On 01/23/20, the license pending nurse, Siria Montelongo, provided care and completed [facility] documentation on this patient. I have reviewed the license pending nurse's documentation and agree with the findings.
[2020-01-24] VITALS: PULSE 72
[2020-01-24] MEDS: ENOXAPARIN 60 MG/0.6 ML SYRINGE 55 MG SUB-Q ×2 (00:04→11:34)
[2020-01-24 04:00] VITALS: PULSE 61
[2020-01-24 05:50] VITALS: BP 146/66; PULSE 67; RESP 16; TEMP 36.9; O2SAT 98
[2020-01-24 05:50] LABS: Hematocrit 30.7 % (37.0-47.0); Hemoglobin 10.1 g/dL (12.0-15.0); Mean Corpuscular HGB Conc 32.9 g/dl (32-36); Mean Corpuscular Hemoglobin 31.5 pg (26-34); Mean Corpuscular Volume 95.6 fl (80-100); Mean Platelet Volume 11.4 fl (7.4-10.4); Platelet Count Result 200 k/mm3 (150-375); Red Blood Count 3.21 M/mm3 (4.2-5.4); Red Cell Distribution Width 12.7 % (11.5-14.5)
[2020-01-24 06:10] LABS: Anion Gap 7.5 mmol/L (7-16); Blood Urea Nitrogen 12 mg/dL (7-17); Calcium 9.6 mg/dL (8.4-10.2); Carbon Dioxide 29 mmol/L (22-30); Chloride 106 mmol/L (98-107); Estimated CRCL calculation 45 ml/min; Estimated Glomerular Filt Rate > 60; Glucose 84 mg/dL (65-105); Potassium 3.5 mmol/L (3.4-5.0); Sodium 139 mmol/L (137-145)
--- NOTE | 2020-01-24 07:11 | WPDUROPN2 ---
Progress Note: A&P Assessment and Plan (1) UTI (urinary tract infection): Qualifiers: Hematuria presence: without hematuria Urinary tract infection type: acute cystitis Qualified Code(s): N30.00 - Acute cystitis without hematuria Code(s): N39.0 - Urinary tract infection, site not specified Status: Acute (2) Left renal stone: Code(s): N20.0 - Calculus of kidney Status: Acute Assessment and Plan: 13mm calcified left renal stone will require ESWL 2-3 weeks [id number] (following treatement for UTI). Will need to be off anticoagulants around that time (duration depending on what anticoagulant is chosen) or bridged with Lovenox. Will need direction from cardiology. Subjective Subjective Date/Time Seen: 01/24/20 07:11 Tolerating stent Review of Systems Cardiovascular: Cardiovascular: Denies chest pain, Denies lightheadedness, Denies palpitations and Denies dyspnea Respiratory: Respiratory: Denies dyspnea Gastrointestinal: Gastrointestinal: Denies diarrhea, Denies nausea and Denies vomiting Genitourinary: Genitourinary: Denies hematuria and Denies dysuria Endocrine: Endocrine: Denies palpitations Exam Const: General: no acute distress Resp: Effort & Inspection: normal respiratory effort GI: Inspection: non-distended GI Palp: No abdominal tenderness and No Guarding due to palpation present (GI) Auscultation: normal bowel sounds Objective Data Vital Signs Vital Signs: Vital Signs - 24 hr 01/23/20 08:00 01/23/20 12:00 01/23/20 14:00 Temperature 98.0 F Pulse Rate 58 L 69 68 Respiratory Rate 16 Blood Pressure 128/63 Pulse Oximetry 99 01/23/20 16:00 01/23/20 20:00 01/23/20 20:09 Temperature 98.1 F Pulse Rate 76 73 75 Respiratory Rate 14 Blood Pressure 144/63 H Pulse Oximetry 97 01/24/20 00:00 01/24/20 04:00 01/24/20 05:50 Temperature 98.4 F Pulse Rate 72 61 67 Respiratory Rate 16 Blood Pressure 146/66 H Pulse Oximetry 98 Intake/Output Intake/Output: Intake & Output 01/21/20 01/22/20 01/23/20 01/24/20 23:59 23:59 23:59 23:59 Intake Total 1670 1735 3022 300 Output Total 50 750 500 850 Balance 3677 213 3204 -550 Meds/Results Medications: Active Medications Generic Name Dose Route Start Last Admin Trade Name Freq PRN Reason Stop Dose Admin Hydrocodone Bitart/Acetaminophen 1 tab 01/21/20 16:34 01/23/20 04:51 [place] 5-325 Mg PO 1 tab Q4H PRN Administration Pain Rated 4-6 Enoxaparin Sodium 55 mg 01/22/20 12:00 01/24/20 00:04 Lovenox SUB-Q 55 mg Q12H DAYDAY Administration Fentanyl Citrate 25 mcg 01/21/20 14:08 Sublimaze IV PUSH Q2M PRN Pain Hydromorphone HCl 0.25 mg 01/21/20 14:08 Dilaudid Inj IV PUSH Q5M PRN Pain Ceftriaxone Sodium 2 gm in 100 mls @ 200 mls/hr 01/23/20 12:00 01/23/20 12:03 Rocephin 2 Gm/D5w 100 Ml IVPB Infused NOON DAYDAY Infusion Ondansetron HCl 4 mg 01/21/20 14:08 Zofran Inj IV PUSH ONCE PRN Nausea Radiology Results: ITS Impressions Chest X-Ray 01/21/20 11:45 IMPRESSION: 1. 1 cm nodule in left upper lung zone suspicious for primary bronchogenic carcinoma. Noncontrast chest CT is recommended. I called this result to Roberta Daniel on 01/21/20 at 11:47 AM. Chest/Abdomen/Pelvis CT 01/21/20 12:35 IMPRESSION: 1. 1.3 cm stone of the left renal pelvis causing moderate left hydroureteronephrosis. 2. Tiny sclerotic focus of the left fifth rib, likely bone island, accounting for the radiographic finding in question. No suspicious pulmonary nodule. Retrograde Pyelogram 01/21/20 16:50 IMPRESSION: Fluoroscopy used during XR retrograde pyelo w/stent LT. Upper Quadrant Ultrasound 01/22/20 09:58 IMPRESSION: 1. Some liver surface undulations, possible cirrhosis. 2. Biliary dilation most likely from post cholecystectomy status. If there is elevated bilirubin then consider evaluation with [facility]
[2020-01-24 07:15] LABS: Folic Acid 8.9 ng/mL (2.76->20)
[2020-01-24 07:35] VITALS: PULSE 68
[2020-01-24 09:27] LABS: Alanine Aminotransferase 38 U/L (4-35); Albumin Level 3.3 g/dL (3.5-5.1); Alkaline Phosphatase 111 U/L (38-126); Aspartate Amino Transferase 37 U/L (14-36); Bilirubin,Total 0.6 mg/dL (0.2-1.3)
[2020-01-24 12:00] VITALS: PULSE 70
[2020-01-24 12:44] LABS: Iron 88 ug/dL (37-170); Percent Iron Saturation 59 % (20-50)
[2020-01-24 13:25] LABS: Transferrin 116 mg/dL (206-381)
[2020-01-24] MEDS: CYANOCOBALAMIN INJ 1,000 MCG/ML VIAL 1000 MCG IM (13:33)
[2020-01-24 14:00] VITALS: BP 129/57; PULSE 83; RESP 16; TEMP 36.1; O2SAT 99
--- NOTE | 2020-01-24 15:17 | PM.CNCAR ---
Assessment and Plan Assessment and plan (1) New onset a-fib: Code(s): I48.91 - Unspecified atrial fibrillation Status: Acute Assessment and Plan: resolve spontaneously maintaining sinus rhythm. may initiate Toprol XL 12.5mg daily and Eliquis 5mg BID if ok with Urology. patient counseled on bleeding versus stroke risk. CHADS2 Vasc score 2-3 (age, female, suspect has degree of HTN). Counseled on pathophysiology and associated stroke risk with atrial fibrillation even paroxysmal. Duration unknown prior to admission as is frequency. May be secondary to acute illness, however, patient was completely asymptomatic. She had no prior knowledge but was not following regularly with a physician. Patient verbalized understanding and agreed with plan of care. All questions answered to her satisfaction. Disposition per hospitalist service. Follow up as an outpatient in 4 weeks. Echo reviewed, normal LV function, no significant valve pathology. No anginal symptoms. Normal 12 lead EKG in sinus rhythm. (2) Bacteremia: Code(s): R78.81 - Bacteremia Status: Acute Assessment and Plan: Per primary service. Continue antibiotics (3) Urinary tract infection: Code(s): N39.0 - Urinary tract infection, site not specified Status: Acute Assessment and Plan: per Urology and primary service. (4) Left renal stone: Code(s): N20.0 - Calculus of kidney Status: Acute Assessment and Plan: Plan for lithotripsy in the future per Urology. History of Present Illness History of Present Illness Consult date/time: Date of service:01/24/20 15:17 This is a cardiology consultation at the request of Demetria Dockery of the [facility] service for our opinion regarding atrial fibrillation. Requesting physician: Demetria Dockery PA-C Consult reason: atrial fibrillation Reason For Visit: flank pain Narrative: Patient is a pleasant 69-year-old female with no previously known significant past medical history but was not following with a physician who presented to the emergency department January 20 with right flank pain for 1 week. She states this would occur intermittently but she also complained of decreased appetite, weight loss, decreased energy, fatigue and urinary incontinence. Subsequently she was found to have a left ureteral stone in the right renal pelvis with moderate left hydroureter nephrosis. Creatinine 1.3. On January 21 on exam atrial fibrillation was suspected and confirmed by EKG. Subsequent repeat EKG confirmed normal sinus rhythm. Patient has no prior history or knowledge of atrial fibrillation has no complaints of shortness of breath, chest pain, palpitations, skipping heartbeats, near-syncope or syncope. She denies history of bleeding complications, falls. No history of DVT/ PE, CVA, myocardial infarction. She has no complaints at this time. Review of Systems Review of Systems: All systems reviewed & are unremarkable except as noted in HPI and below Constitutional: Constitutional: Reports as per HPI, Reports no additional constitutional complaints and Reports fatigue Eyes: Eyes: Reports as per HPI and Reports no additional eye complaints ENT: Reports system reviewed and no additional complaints, except as documented and Reports as per HPI Cardiovascular: Cardiovascular: Reports as per HPI, Reports no additional cardiovascular complaints, Denies chest pain and Denies palpitations Respiratory: Respiratory: Reports as per HPI, Reports no additional respiratory complaints, Denies dyspnea and Denies dyspnea on exertion Gastrointestinal: Gastrointestinal: Reports as per HPI, Reports no additional gastrointestinal complaints, Denies abdominal pain, Denies nausea and Denies vomiting Genitourinary: Genitourinary: Reports as per HPI, Denies flank pain and Reports urinary incontinence Musculoskeletal: Musculoskeletal: Reports no additional musculoskeletal complaint
[2020-01-24 15:23] VITALS: BMI 20.1
--- NOTE | 2020-01-24 16:25 | PM.DS ---
DS: Admitting Diagnosis Admitting Diagnosis Admitting Diagnosis: Urinary tract infection, site not specified DS: Discharge Diagnosis Discharge Diagnosis (1) New onset a-fib: Code(s): I48.91 - Unspecified atrial fibrillation Status: Acute Assessment and Plan: ----- AFib noted on exam and confirmed on EKG. she does not have any history of atrial fibrillation but also does not go to the doctor. She was on tele durring her stay and was only in afib for a few hours. could be Paroxysmal AFib but also could be from her infection. TSH WNL. Echo reviewed, no significant abnormalities. She did, however, have slight right ventiruclar strain, concerning for possible PE as the etiology which was ruled out by CTA. She has no pulmonary htn. Pt transitioned to eliquis and she can afford this. She spoke with Dr. Marx who recommended toprol as well. (2) Bacteremia: Code(s): R78.81 - Bacteremia Status: Acute Assessment and Plan: -----Noted in 1/2 blood cultures at this time. 2/2 to UTI. finish tx outpt (3) Left renal stone: Code(s): N20.0 - Calculus of kidney Status: Acute Assessment and Plan: ----- 13mm stone noted in the left renal pelvis with associated moderate hydroureteronephrosis. She underwent cystoscopy 01/10 with left ureteral stent placement per Dr. Solano. f/u with them outpt (4) Hydroureteronephrosis: Code(s): N13.30 - Unspecified hydronephrosis Status: Acute Assessment and Plan: -----Left-sided, secondary to above. Continue abx as stated above. (5) Acute kidney injury: Code(s): N17.9 - Acute kidney failure, unspecified Status: Acute Assessment and Plan: -----Resoleved. Likely 2/2 to dehydration and kidney stone. (6) Urinary tract infection: Code(s): N39.0 - Urinary tract infection, site not specified Status: Acute Assessment and Plan: ----- Continue ceftriaxone, see above. (7) Elevated LFTs: Code(s): R79.89 - Other specified abnormal findings of blood chemistry Status: Acute Assessment and Plan: -----Mild and noted back in September 2018 as well. RUQ u/s shows possible cirrhosis but no hx of alcohol abuse. could also be elevated d/t current infx. Hep panel normal. Follow. DS: Summary Hospital Course Reason for hospitalization: left kidney stone Hospital Course: patient is a 69-year-old female who does not routinely follow with a physician who presented emergency room for weakness and flank pain found to have a 13 mm left kidney stone. Vitals in the ER were temperature 98.8?, pulse 82, respiratory rate 16, blood pressure 139/86, pulse ox 98 on room air. Initial white blood cell count 10.4, hemoglobin 12.3, hematocrit 36.3, platelets 150. Creatinine mildly elevated 1.3 with a BUN of 35. CT of the abdomen pelvis showed 1.3 cm stone at the left renal pelvis causing moderate hydronephrosis with a tiny sclerotic focus of the left 5th rib likely bone island. UA suspicious for UTI. patient was started on ceftriaxone and admitted to the hospitalist service. She underwent a cystoscopy with stent placement which improved her pain. They plan to do an additional procedure outpatient. Her urine culture came back positive for E coli as well as 1/2 blood cultures. These were sensitive to ceftriaxone. While she was hospitalized, she went into atrial fibrillation without rapid ventricular response. Patient does not follow with a primary care physician and is unknown if this is paroxysmal atrial fluid or due to the infection. Please see above for further details. Patient was discharged on Eliquis and metoprolol and is going to follow-up with cardiology. Overall, the patient had improvement during her stay. She was educated about the worrisome signs and symptoms come back to emergency room for was discharged stable condition. Status at Discharge Functional status
== END 2020-01-24 17:18 | disposition home or self-care (01) | DRG 660 ==
LOC: ANHED 14:04 → ANH2MED 17:40 → ANHED 01-25 17:47 → ANH2MED 01-25 17:48
PROVIDERS: Physician Assistant; Urology; Admitting Provider Family Medicine; Emergency Provider Emergency Medicine; Visit Provider Family Medicine
PROC: BT1F1ZZ Fluoroscopy of Left Kidney, Ureter and Bladder using Low Osmolar Contrast (ICD-10-PCS; CPT 52352; principal; 2020-01-21 14:30)
DX: N20.0 Calculus of kidney (principal); N39.0 Urinary tract infection, site not specified; N13.6 Pyonephrosis; N17.9 Acute kidney failure, unspecified; R78.81 Bacteremia; I48.91 Unspecified atrial fibrillation; B96.20 Unspecified Escherichia coli [E. coli] as the cause of diseases classified elsewhere
CPT/HCPCS: 36415; 51701; 71046; 71250; 71275; 74176; 74420; 76705; 80048; 80053; 80061; 80074; 80076; 81001; 82607; 82728; 82746; 83540; 83550; 83605; 84443; 84466; 85014; 85018; 85025; 85027; 85380; 86140; 87040; 87077; 87086; 87088; 87186; 93005; 93306; 93970; 96361; 96365; 97110; 97116; 97161; 97165; 99199; 99285; A9270; C1769; C1887; C2617; J0696; J1650; J2704; J3010; J3420; J7030; J7120; Q9967

== ENCOUNTER 2020-02-08 09:11 | Outpatient (CLI) | payer MEDICARE, MEDICAID, SELFPAY ==
--- NOTE | ~2020-02-08 | XR_ITS ---
XR abdomen/kub 1V DATE: 02/08/2020 09:33 INDICATION: Right abdominal pain. Left ureteral stone. TECHNIQUE: AP projection, 2 views COMPARISON: 01/21/2020 CT chest abdomen pelvis FINDINGS: An approximately 8 x 15 mm calcified stone overlies the left renal pelvis. There is a left internal urinary stent in expected position. No right urinary tract calcified calculus is evident on this examination or other 01/21/2020 CT chest abdomen pelvis examination.. Surgical clips, right upper quadrant, consistent with cholecystectomy. The psoas shadows are intact. No visceromegaly is evident. The bowel gas pattern is unremarkable, without evidence of obstruction. Prominent degenerative spurring of the lower thoracic and lumbar spine. Abdominal aortic and iliac arterial calcifications. IMPRESSION: Approximately 8 x 15 mm calcified left renal pelvic calculus Left internal urinary stent Status post cholecystectomy Reviewed, dictated and finalized at [facility]. Reviewed, dictated and finalized at [facility].
== END 2020-02-08 09:12 | disposition home or self-care (01) ==
LOC: ANHIMG 09:15
PROVIDERS: PCP Nurse Practitioner Adult Health; Visit Provider Nurse Practitioner Adult Health
DX: N20.1 Calculus of ureter (principal); Z90.49 Acquired absence of other specified parts of digestive tract
CPT/HCPCS: 74018

== ENCOUNTER 2020-02-17 08:19 | Outpatient (CLI) | payer MEDICARE, MEDICAID, SELFPAY ==
[2020-02-17 08:50] LABS: INR 1.3; Prothrombin Time 15.6 Seconds (11.1-14.7)
[2020-02-17 08:51] LABS: Partial Thromboplastin Time 31.9 SECONDS (22.3-36.8)
== END 2020-02-17 08:20 | disposition home or self-care (01) ==
PROVIDERS: Visit Provider Urology
DX: N20.0 Calculus of kidney (principal)
CPT/HCPCS: 36415; 85610; 85730; 87077; 87086; 87088; 87186

== ENCOUNTER 2020-02-23 00:59 | Outpatient (CLI) | payer MEDICARE, MEDICAID, SELFPAY ==
[2020-02-23 18:19] LABS: SARS-CoV-2 RNA PCR Negative
== END 2020-02-23 01:00 | disposition home or self-care (01) ==
LOC: ANHCOVIDDT 01:00
PROVIDERS: Visit Provider Urology
DX: Z01.812 Encounter for preprocedural laboratory examination (principal); Z20.828 Contact with and (suspected) exposure to other viral communicable diseases
CPT/HCPCS: 87635; C9803; U0003

== ENCOUNTER 2020-02-25 01:56 | Day surgery (SDC) | payer MEDICARE, MEDICAID, SELFPAY ==
[2020-02-15 10:01] VITALS: BMI 19.5
--- NOTE | 2020-02-24 11:55 | WPDANESEPPF ---
Anes - Initial Pre Proc Eval Procedure: Operation Date: 02/25/20 08:30 Proposed Procedures p Left Ureteral Extracorporeal Shock Wave Lithotripsy - Jacoby Rider MD Date/Time: 02/24/20 11:55 Surgeon: Jacoby Rider MD Pre Op Diagnosis: Left Ureteral Stone Patient Data Age: 69 Gender: F Height: 1.7 m Weight: 56.8 kg Allergies Allergy/AdvReac Type Severity Reaction Status Date / Time No Known Allergies Allergy Verified 02/15/20 10:07 Home Medications Medication Instructions Recorded Confirmed Type apixaban [Eliquis] 5 mg PO Q12HR #60 tablet 01/24/20 02/15/20 Rx cyanocobalamin (vitamin B-12) 1,000 mcg PO QAM #30 tablet 01/24/20 02/15/20 Rx [Vitamin B-12] metoprolol succinate 12.5 mg PO QAM #30 tablet 01/24/20 02/15/20 Rx Patient hx anesthesia problems: none Family hx anesthesia problems: none PMFSH Past Medical History Medical History (Updated 02/24/20 @ 11:55 by Maciel Leonard DO) Atrial fibrillation Elevated LFTs Nephrolithiasis Osteoarthritis Surgical History Surgical History History of cholecystectomy Social History Social History Social History: Surrogate decision maker: Loretta Maya, daughter. Code status: Full code. Smoking packs per day: 1 Smoking cigarettes per day: 20.0 Years smoked: 10 Smoking pack-years: 10.00 Smoking status: Former smoker Tobacco type: cigarettes Smoking end date: 06/30/88 Additional smoking assessment comments: QUIT 1989 Alcohol intake: never Substance use: never Substance use type: does not use Living arrangements: with family Additional living arrangements comments: The patient lives in [place] with her grandson and 2 dogs. 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 Spiritual care concerns: No Anes - Eval Final PreProcedure Day of Procedure 02/24/20 11:55 Patient weight: normal Heart: regular rate and rhythm Lungs: clear to auscultation and normal air movement Airway: Mallampati scale class 1 Neurological: alert and oriented Last oral intake: >/= 8 hours ASA classification: III Emergent: no Anesthetic plan: proceed Anesthesia type and monitoring: general LMA and standard monitoring Informed Consent: The patient's anesthetic plan and its attendant risks and benefits were discussed with the patient/family/POA. Questions were solicited and answers provided to the satisfaction of the patient/family/POA.
[2020-02-25] VITALS (8 sets, daily range): BP systolic 137–167; BP diastolic 59–76; PULSE 50–85; RESP 10–20; TEMP 36.3–36.4; O2SAT 100
--- NOTE | ~2020-02-25 | XR_ITS ---
EXAMINATION: XR abdomen/kub 1V EXAM DATE: 02/25/2020 06:44 INDICATION: Lithotripsy. TECHNIQUE: Frontal projection(s) of the abdomen for interpretation. Comparison is made to prior exami nation from 02/08/2020. FINDINGS: Left-sided double-J ureteral stent in position. There is large stone in the inferior pole of the left kidney. Cholecystectomy clips. Moderate amount of colonic stool and gas. Moderate-sized b ridging lumbar endplate osteophytes. IMPRESSION: 1. Left nephrolithiasis. 2. Stent in position. Reviewed, dictated and finalized at [facility].
--- NOTE | 2020-02-25 06:46 | WPDHPUPDATE1 ---
History and Physical Update Update Date/Time: 02/25/20 06:46 History and Physical has been reviewed, including an updated exam of the patient. There are NO changes in the patient's condition. Risks, benefits, and alternatives have been discussed and questions answered. Patient agrees to proceed with procedure.
[2020-02-25] MEDS: LACTATED RINGERS 1,000 ML 30 ML IV CONT ×2 (07:40→09:04)
[2020-02-25 07:56] LABS: Prothrombin Time 12.9 Seconds (11.1-14.7)
[2020-02-25] MEDS: ceFAZolin 2 GM/D5W 50 ML 2 GM/50 ML BAG IVPB (08:19)
[2020-02-25] MEDS: KETOROLAC 30 MG/ML VIAL (*BKC) IV PUSH (08:30)
--- NOTE | 2020-02-25 08:56 | PM.PROC ---
Procedure Note - Detailed Date of procedure: 02/25/20 Pre-op diagnosis: Left Ureteral Stone Post-op diagnosis: same Procedure performed: Left ESWL Description of procedure: The patient was brought to the operative suite where she was placed in the supine position on the Dornier lithotripsy table. The focal point of the lithotripter was placed at a 14mm left lower pole calculus. A total of 2500 shocks were delivered at a power setting of 4. There appeared to be good fragmentation of the stone. The patient tolerated the procedure well and was taken to the recovery room in good condition. Anesthesia: GLMA Surgeon: Jacoby Rider MD Estimated blood loss (mL): 0 Drains: No Packing: No Pathology: none sent Complications: No immediate complications Condition: stable Disposition: PACU
== END 2020-02-25 11:12 | disposition home or self-care (01) ==
PROVIDERS: Visit Provider Urology
PROC: (CPT 50590; principal; 2020-02-25 08:30)
DX: N20.1 Calculus of ureter (principal); I48.91 Unspecified atrial fibrillation; Z79.01 Long term (current) use of anticoagulants
CPT/HCPCS: 50590; 36415; 74018; 85610; J0690; J1100; J1885; J2405; J2704; J3010; J7120

== ENCOUNTER 2020-03-15 10:50 | Outpatient (CLI) | payer MEDICARE, MEDICAID, SELFPAY ==
--- NOTE | ~2020-03-15 | XR_ITS ---
EXAMINATION: XR abdomen/kub 1V EXAM DATE: 03/15/2020 11:18 INDICATION: Left ureteral stone. TECHNIQUE: Frontal projection(s) of the abdomen for interpretation. Comparison is made to prior exami nation from 02/25/2020. FINDINGS: Again there is left-sided double-J ureteral stent. Patient has likely had interval lithotr ipsy, with less well-defined density projecting over lower pole of the left kidney which could be sto ne fragments. There is 3 mm calcification along the course of the left ureter, uncertain whether or n ot this is ureteral stone. Moderate amount of colonic stool. Nonobstructive bowel gas pattern. Cholec ystectomy clips. There are mild bony degenerative changes. IMPRESSION: 1. Probable left inferior calyceal stone fragments. 2. Possible left ureteral stone. 3. Stent in position. Reviewed, dictated and finalized at location [facility].
== END 2020-03-15 10:51 | disposition home or self-care (01) ==
LOC: ANHLAB 10:54
PROVIDERS: Visit Provider Nurse Practitioner Adult Health
DX: N20.1 Calculus of ureter (principal)
CPT/HCPCS: 74018

== ENCOUNTER 2020-05-23 18:57 | Emergency (ER) | payer MEDICARE, MEDICAID, SELFPAY ==
--- NOTE | ~2020-05-23 | CT_ITS ---
EXAMINATION: CT brain wo con DATE: 05/23/2020 19:54 INDICATION: Posterior head pain post fall TECHNIQUE: Computed tomography (CT) of the head was performed without intravenous contrast. Sagittal and coronal reconstructions were performed. The mA was adjusted according to patient size. Iterative reconstruction technique was employed. The dose-length product was 605.33 mGy-cm. COMPARISON: None FINDINGS: Small left parietal scalp hematoma. No calvarial fracture. No acute intracranial hemorrhage, acute in farction or abnormal extra axial fluid collection. There is mild scattered white matter hypoattenuati on consistent with chronic small vessel ischemic disease. Ventricles are normal and symmetric. No ma ss/mass effect. The orbits, paranasal sinuses and mastoid air cells are normal. IMPRESSION: 1. No fracture or acute intracranial process. 2. Mild scattered white matter hypoattenuation consistent with chronic small vessel ischemic disease. Reviewed, dictated and finalized at [facility]. H WEAVER IMPRESSION: 1. No fracture or acute intracranial process. 2. Mild scattered white matter hypoattenuation consistent with chronic small ve ssel ischemic disease.
[2020-05-23 19:07] VITALS: BP 177/83; PULSE 74; RESP 14; TEMP 36.5; O2SAT 99
--- NOTE | 2020-05-23 19:17 | ED.FALL ---
HPI - Fall General Chief Complaint: Fall Stated Complaint: fall, thumb injury Time Seen by Provider: 05/23/20 19:12 History of Present Illness HPI Narrative: This evening she was tripped over her dog and fell. She struck the back of her head. She noted a tender bump on the scalp. No LOC, confusion, dizziness, weakness. She also sustained a laceration to the right thumb. Mild pain. Full ROM. Related Data Home Medications Medication Instructions Recorded Confirmed cefdinir 300 mg PO BID 02/25/20 02/25/20 Allergies Allergy/AdvReac Type Severity Reaction Status Date / Time No Known Allergies Allergy Verified 02/25/20 07:43 Review of Systems Review of Systems: All systems reviewed & are unremarkable except as noted in HPI and below Constitutional: Constitutional: Denies fever(s) and Denies weakness Eyes: Eyes: Denies no additional eye complaints Cardiovascular: Cardiovascular: Denies chest pain Respiratory: Respiratory: Denies dyspnea Gastrointestinal: Gastrointestinal: Denies nausea Musculoskeletal: Musculoskeletal: Denies back pain Neurologic: Denies confusion, Denies dizziness, Denies syncope and Denies weakness PMFSH Past Medical History Medical History Atrial fibrillation Elevated LFTs Nephrolithiasis Osteoarthritis Surgical History Surgical History History of cholecystectomy Family History Family History Mother Carcinoma of colon Social History Social History Social History: Surrogate decision maker: Loretta Maya, daughter. Code status: Full code. Smoking packs per day: 1 Smoking cigarettes per day: 20.0 Years smoked: 10 Smoking pack-years: 10.00 Smoking status: Former smoker Tobacco type: cigarettes Smoking end date: 06/30/88 Additional smoking assessment comments: QUIT 1989 Alcohol intake: never Substance use: never Substance use type: does not use Additional living arrangements comments: The patient lives in [place] with her grandson and 2 dogs. 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 Spiritual care concerns: No Exam Const: General: healthy appearing, no acute distress and alert Nutritional Appearance: well nourished Orientation/consciousness: patient oriented x3 HENMT: Face and sinus: normal facial exam Other: posterior scalp swelling Eyes: Pupils: Equal, round and reactive pupils present EOM: EOMs intact bilaterally Neck: Neck: normal visual inspection Chest: Chest palpation & inspection: no tenderness Resp: Effort & Inspection: normal respiratory effort Auscultation: clear to auscultation bilaterally Cardio: Rate: regular rate Rhythm: regular rhythm Skin: Other: 3 cm laceration to palmar surface of right thumb just proximal to the PIP. Neuro: General: patient oriented x3, moves all extremities, no focal motor deficits and CN's II-XI intact bilaterally Speech: normal speech Extrem: General: normal to inspection and edema Other: Right thumb shows full ROM without deformity. Course Vital Signs Vital signs: Vital Signs Temperature 36.5 C 05/23/20 19:07 Pulse Rate 74 05/23/20 19:07 Respiratory Rate 14 05/23/20 19:07 Blood Pressure 177/83 H 05/23/20 19:07 Pulse Oximetry 99 05/23/20 19:07 Temperature 36.5 C 05/23/20 19:07 Pulse Rate 74 05/23/20 19:07 Respiratory Rate 14 05/23/20 19:07 Blood Pressure 177/83 H 05/23/20 19:07 Pulse Oximetry 99 05/23/20 19:07 Procedures Laceration Laceration 1: Site: hand Side (If applicable): right Size (cm): 4 Description: linear Depth: simple, single layer Local Anesthetic: lidocaine 1% Amount of anesthesia used (mL): 3 Pre-repair: irrigated
[2020-05-23] MEDS: TETANUS,DIPHTHERIA,AC PERTUSSIS ADULT (0.5 ML) BOOSTRIX IM (19:34)
== END 2020-05-23 21:54 | disposition home or self-care (01) ==
PROVIDERS: Emergency Provider Emergency Medicine
DX: S00.03XA Contusion of scalp, initial encounter (principal); S61.011A Laceration without foreign body of right thumb without damage to nail, initial encounter; I48.91 Unspecified atrial fibrillation; M19.90 Unspecified osteoarthritis, unspecified site; W01.0XXA Fall on same level from slipping, tripping and stumbling without subsequent striking against object, initial encounter; Z23 Encounter for immunization
CPT/HCPCS: 12002; 70450; 90471; 90715; 99284

== ENCOUNTER 2020-06-28 09:25 | Outpatient (CLI) | payer MEDICARE, MEDICAID, SELFPAY ==
[2020-06-28 09:52] LABS: Basophils Percent Auto 0.2 % (0.2-1.2); Eosinophils Absolute Auto 0.1 K/mm3 (0-0.3); Eosinophils Percent Auto 0.9 % (0-4.4); Hematocrit 40.1 % (37.0-47.0); Hemoglobin 13.1 g/dL (12.0-15.0); Immature Granulocyte Absolute 0.02 K/mm3 (0.00-0.031); Immature Granulocyte Percent A 0.3 % (0-0.5); Lymphocytes Absolute Auto 1.21 K/mm3 (0.9-3.2); Lymphocytes Percent Auto 18.8 % (18.3-44.2); Mean Corpuscular HGB Conc 32.7 g/dl (32-36); Mean Corpuscular Hemoglobin 30.8 pg (26-34); Mean Corpuscular Volume 94.1 fl (80-100); Mean Platelet Volume 10.3 fl (7.4-10.4); Monocytes Absolute Auto 0.5 K/mm3 (0.1-0.6); Monocytes Percent Auto 8.4 % (2.6-8.5); Neutrophils Absolute Auto 4.6 K/mm3 (1.3-6.7); Neutrophils Percent Auto 71.4 % (45.5-73.1); Platelet Count Result 229 k/mm3 (150-375); Red Blood Count 4.26 M/mm3 (4.2-5.4); Red Cell Distribution Width 12.2 % (11.5-14.5); White Blood Count 6.5 K/mm3 (4.5-10.0)
[2020-06-28 10:10] LABS: Alanine Aminotransferase 9 U/L (4-35); Albumin Level 4.2 g/dL (3.5-5.1); Alkaline Phosphatase 128 U/L (38-126); Anion Gap 4 mmol/L (8-16); Aspartate Amino Transferase 21 U/L (14-36); Bilirubin,Total 0.9 mg/dL (0.2-1.3); Blood Urea Nitrogen 13 mg/dL (7-17); Calcium 10.8 mg/dL (8.4-10.2); Carbon Dioxide 33 mmol/L (22-30); Chloride 104 mmol/L (98-107); Cholesterol 233 mg/dL (0-200); Estimated Glomerular Filt Rate > 60; Glucose 94 mg/dL (65-105); HDL Direct 63 mg/dL; Potassium 4.4 mmol/L (3.4-5.0); Sodium 141 mmol/L (137-145); Triglycerides 122 mg/dL (<150)
[2020-06-28 10:21] LABS: LDL Cholesterol Direct 126 mg/dL
[2020-06-28 10:37] LABS: Free T4 Free Thyroxine 1.08 ng/mL (0.78-2.19); Vitamin D 25 Hydroxy 27.1 ng/mL
[2020-06-28 11:18] LABS: Total Triiodothyronine (T3) 1.44 NG/ML (0.97-1.69)
== END 2020-06-28 09:26 | disposition home or self-care (01) ==
PROVIDERS: PCP Family Medicine; Visit Provider Nurse Practitioner
DX: I48.91 Unspecified atrial fibrillation (principal); E55.9 Vitamin D deficiency, unspecified; Z13.29 Encounter for screening for other suspected endocrine disorder; Z13.6 Encounter for screening for cardiovascular disorders
CPT/HCPCS: 36415; 80053; 80061; 82306; 84439; 84443; 84480; 85025

== ENCOUNTER 2020-07-06 09:48 | Outpatient (CLI) | payer MEDICARE, MEDICAID, SELFPAY ==
--- NOTE | ~2020-07-06 | XR_ITS ---
XR abdomen/kub 1V 07/06/2020 10:09 Indication: Renal stones Procedure: KUB Comparison: 03/15/2020 Findings: Bowel gas pattern nonobstructive. There are left renal stones. There are cholecystectomy cl ips. Moderate lumbar spondylosis. Impression: 1: Left nephrolithiasis. Reviewed, dictated and finalized at location A. ILATING EQUIPMENT INSTALLER Impression: 1: Left nephrolithiasis.
== END 2020-07-06 09:49 | disposition home or self-care (01) ==
LOC: ANHIMG 09:54
PROVIDERS: PCP Family Medicine; Visit Provider Urology
DX: N20.0 Calculus of kidney (principal); M47.896 Other spondylosis, lumbar region
CPT/HCPCS: 74018

== ENCOUNTER 2020-07-13 16:08 | Outpatient (CLI) | payer MEDICARE, MEDICAID, SELFPAY ==
--- NOTE | ~2020-07-13 | MM_ITS ---
EXAMINATION: MM screening brittni BI w tyler HISTORY: Screening TECHNIQUE: Craniocaudal and mediolateral oblique 3-D tomosynthesis images were obtained and synthetic 2-D images were generated. CAD analysis was submitted and interpreted. COMPARISON: No prior mammogram is available for comparison at this institution. BREAST PARENCHYMAL COMPOSITION: The breasts are heterogeneously dense, which may obscure small masses . FINDINGS: There is a focal asymmetry just lateral to the [place]. There is no mammographic evidence f or malignancy in the right breast. IMPRESSION: 1. Focal asymmetry of the left breast. 2. Additional mammographic views and possible breast ultrasound are recommended. BI-RADS Category 0: Incomplete: Needs additional imaging evaluation. Reviewed, dictated and finalized at location A. RNAL INVESTIGATOR IMPRESSION: 1. Focal asymmetry of the left breast. 2. Additional mammographic views and possible breast ultrasound are recommended . BI-RADS Category 0: Incomplete: Needs additional imaging evaluation.
== END 2020-07-13 16:09 | disposition home or self-care (01) ==
PROVIDERS: PCP Family Medicine; Visit Provider Nurse Practitioner
DX: Z12.31 Encounter for screening mammogram for malignant neoplasm of breast (principal); R92.8 Other abnormal and inconclusive findings on diagnostic imaging of breast
CPT/HCPCS: 77063; 77067

== ENCOUNTER 2020-09-04 19:21 | Inpatient (IN) | payer MEDICARE, MEDICAID, SELFPAY ==
[2020-09-04 19:24] VITALS: BP 188/89; PULSE 112; RESP 29; TEMP 39.5; O2SAT 98
--- NOTE | 2020-09-04 19:24 | ECG_ITS ---
Measurements Intervals [place] Rate: 107 P: 48 ND: 186 QRS: 20 QRSD: 90 T: 78 QT: 301 QTc: 402 Interpretive Statements SINUS TACHYCARDIA POSSIBLE LEFT ATRIAL ENLARGEMENT BASELINE ARTIFACT- III, AVL, AVF ABNORMAL ECG Electronically Signed On 09-05-2020 7:06:20 EMPLOYMENT CASE MANAGER by Best Newman D.O.
--- NOTE | 2020-09-04 19:37 | ED.WEAKNESS ---
HPI - Weakness General Chief complaint: Weakness Stated complaint: lethargy, fever, emesis Time Seen by Provider: 09/04/20 19:22 History of Present Illness HPI Narrative: 69 yo female w/ h/o htn, a-fib brought in to the ED by EMS for weakness and confusion. Per the nurse family reported that she has not been eating or drinking and today she was very weak and confused. She is normally alert, fully oriented and lives independently. Noted to have fever of 103 during triage. She was admitted here last year with UTI and bacteremia. History limited by mental status. Related Data Home Medications Medication Instructions Recorded Confirmed apixaban [Eliquis] 5 mg PO Q12H 09/05/20 09/05/20 Allergies Allergy/AdvReac Type Severity Reaction Status Date / Time No Known Allergies Allergy Verified 09/04/20 19:41 Review of Systems Review of Systems: ROS unobtainable: Yes unobtainable due to mental status Cardiovascular: Cardiovascular: Denies chest pain Respiratory: Respiratory: Denies dyspnea Gastrointestinal: Gastrointestinal: Denies abdominal pain PMFSH Past Medical History Medical History (Updated 09/05/20 @ 04:22 by Arnoldo Ryder MD) Atrial fibrillation Nephrolithiasis Osteoarthritis Surgical History Surgical History (Updated 09/05/20 @ 03:51 by Chelsi Brady DO) History of cholecystectomy Status post laser lithotripsy of ureteral calculus January 2020 Family History Family History Mother Carcinoma of colon Social History Social History (Updated 09/05/20 @ 04:02 by Chelsi Brady DO) Social History: Primary care physician: Dr. Herbert Thomas Surrogate decision maker: Loretta Maya, daughter. Code status: Full code. Smoking packs per day: 1 Smoking cigarettes per day: 20.0 Years smoked: 10 Smoking pack-years: 10.00 Smoking status: Never smoker Tobacco type: cigarettes Smoking end date: 06/30/88 Additional smoking assessment comments: QUIT 1989 Alcohol intake: never Substance use: never Substance use type: does not use Additional living arrangements comments: The patient lives in [place] with her grandson and 2 dogs. 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 Spiritual care concerns: No Exam Const: General: no acute distress Nutritional Appearance: well nourished Orientation/consciousness: confusion Other: Oriented x1 HENMT: Mouth: Yes dry mucous membranes Eyes: Pupils: Equal, round and reactive pupils present Resp: Effort & Inspection: normal respiratory effort Auscultation: clear to auscultation bilaterally Cardio: Rate: tachycardic Rhythm: regular rhythm GI: Inspection: non-distended GI Palp: No Tenderness to palpation present (GI) Skin: General skin exam: normal color Neuro: General: moves all extremities, no focal motor deficits and CN's II-XI intact bilaterally Extrem: General: normal to inspection and no edema Course Vital Signs Vital signs: Vital Signs Temperature 39.5 C H 09/04/20 19:24 Pulse Rate 112 H 09/04/20 19:24 Respiratory Rate 29 H 09/04/20 19:24 Blood Pressure 188/89 H 09/04/20 19:24 Pulse Oximetry 98 09/04/20 19:24 Temperature 37.0 C 09/04/20 22:55 Pulse Rate 72 09/05/20 00:00 Respiratory Rate 18 09/04/20 22:55 Blood Pressure 134/66 09/04/20 22:55 Pulse Oximetry 97 09/04/20 22:55 MDM - Weakness MDM Narrative Medical decision making narrative: Met sepsis criteria on arrival. Significantly improved with medications. Last time she was here she was bacteremic. I will admit for IV antibiotics and monitoring. Differential Diagnosis Differential diagnosis: Likely sepsis, dehydration and other (UTI) Medical Records Attestation: I reviewed the patient's medical records. Lab Data Attestation: I reviewed the patient's lab results. Result diagrams: 09/04/20 19:45
[2020-09-04] MEDS: SODIUM CHLORIDE 0.9% IV 1,000 ML 999 ML IV CONT (19:52)
[2020-09-04 20:07] LABS: Basophils Percent Auto 0.2 % (0.2-1.2); Hematocrit 39.4 % (37.0-47.0); Hemoglobin 13.2 g/dL (12.0-15.0); Immature Granulocyte Absolute 0.02 K/mm3 (0.00-0.031); Immature Granulocyte Percent A 0.4 % (0-0.5); Immature Platelet Fraction Pct 3.1 % (0.9-11.2); Lymphocytes Absolute Auto 0.24 K/mm3 (0.9-3.2); Lymphocytes Percent Auto 4.9 % (18.3-44.2); Mean Corpuscular HGB Conc 33.5 g/dl (32-36); Mean Corpuscular Hemoglobin 32.2 pg (26-34); Mean Corpuscular Volume 96.1 fl (80-100); Mean Platelet Volume 10.6 fl (7.4-10.4); Monocytes Absolute Auto 0.3 K/mm3 (0.1-0.6); Monocytes Percent Auto 5.1 % (2.6-8.5); Neutrophils Absolute Auto 4.4 K/mm3 (1.3-6.7); Neutrophils Percent Auto 89.4 % (45.5-73.1); Platelet Count Result 136 k/mm3 (150-375); Red Cell Distribution Width 12.2 % (11.5-14.5); White Blood Count 4.9 K/mm3 (4.5-10.0)
[2020-09-04 20:15] LABS: INR 1.2; Partial Thromboplastin Time 34.8 SECONDS (22.3-36.8); Prothrombin Time 15.5 Seconds (11.1-14.7)
[2020-09-04 20:27] LABS: Alanine Aminotransferase 16 U/L (4-35); Albumin Level 4.1 g/dL (3.5-5.1); Alkaline Phosphatase 122 U/L (38-126); Anion Gap 5 mmol/L (8-16); Aspartate Amino Transferase 30 U/L (14-36); Bilirubin,Total 1.3 mg/dL (0.2-1.3); Blood Urea Nitrogen 13 mg/dL (7-17); Calcium 9.8 mg/dL (8.4-10.2); Carbon Dioxide 28 mmol/L (22-30); Chloride 103 mmol/L (98-107); Estimated CRCL calculation 43 ml/min; Estimated Glomerular Filt Rate > 60; Glucose 119 mg/dL (65-105); Lactic Acid Reflex 1.3 mmol/L (0.7-2.1); Potassium 3.9 mmol/L (3.4-5.0); Sodium 136 mmol/L (137-145)
[2020-09-04 20:30] LABS: Add Urine Microscopic? YES; Appearance Urine Cloudy (Clear); Bilirubin Urine Negative (Negative); Blood Urine 2+ (Negative); Color Urine Yellow (Yellow); Glucose Urine UA Negative (Negative); Ketones Urine Negative (Negative); Leukocyte Esterase Ur 1+ LEU/UL (Negative); Mucus Urine Rare /lpf; Nitrate Urine Positive (Negative); Protein Urine 1+ mg/dL (Negative); RBC Urine 21-50 /hpf (0-2); Specific Grav Ur 1.013 (1.001-1.035); Transitional Epi Cells Urine Rare /hpf (None Seen); WBC Urine 51-75 /hpf
[2020-09-04 20:58] VITALS: BP 156/70; PULSE 100; RESP 15; TEMP 37.5; O2SAT 100
[2020-09-04 21:17] LABS: CRP 3.8 mg/dL (<1.0)
[2020-09-04 22:40] VITALS: BP 134/57; PULSE 76; RESP 21; O2SAT 97
[2020-09-04 22:52] VITALS: BMI 21.0
[2020-09-04 22:55] VITALS: BP 134/66; PULSE 77; RESP 18; TEMP 37; O2SAT 97
--- NOTE | 2020-09-04 23:04 | ADMGEN ---
This patient, Juany Quintero, was admitted to 3 Med Surg Room 332-01 @ 22:50. Patient/family oriented to hospital policies and general routines including ID bracelet, bed and alarms, visiting hours, pain management, procedures, bathroom and other care routines, personal items, smoking policy, room service/diet, and visiting hours. Information on how to activate the Rapid Response Team has been discussed. Patient/Family are encouraged to report perceived risks to care and to ask questions if they do not understand what they are told or what they should do.
--- NOTE | 2020-09-04 23:28 | PC.NURSE ---
patient was admitted to room 332 at 22:50 on 09/04/2020 with only her bottom dentures, she states she would never leave home without them, she was admitted to the ER very confused, upon discussion with her I called ER to see if they had her top set, they stated they only had a oly-shirt that was later sent in the tube. Will follow up with grandson whom she lives with. Pt only brought sweatpants, shoes and home meds, and bottom set of dentures otherwise. -MARLENEW RN
--- NOTE | 2020-09-04 23:33 | PC.NURSE ---
Called grandson Alek Quintero who lives with her, stated that she left her top set of her dentures at home and they will try and bring them tomorrow 09/05. -HOME RN
--- NOTE | 2020-09-04 23:58 | PC.NURSE ---
Spoke with daughter Loretta Maya, point of contact, and she had frustrations over how we did not call her upon admission of her mother. I explained the process to her and she was more understanding, she lives in the area and will be checking in periodically, she plans on bringing Ms. Gómez belongingrupesh to her tomorrow. I informed her that because she was swabbed for covid she is unable to visit, she confirmed understanding. I also covered this with the patient, she was frustrated by this but understood. -HOME RN
[2020-09-05] VITALS (8 sets, daily range): BP systolic 130–159; BP diastolic 59–70; PULSE 64–80; RESP 16–18; TEMP 36.3–37.7; O2SAT 96–100
--- NOTE | 2020-09-05 03:40 | PM.IMHP ---
H&P: HPI History of Present Illness Date/Time: 09/05/20 03:40 Chief Complaint: Weakness, confusion, fever and emesis Narrative: Juany Quintero is a 69 year old female with a past medical history of paroxysmal atrial fibrillation and complicated urinary tract infection with obstructing kidney stone January 2020 with associated bacteremia with pansensitive E coli who presented to the ER with weakness, fever and decreased oral intake. The patient's is usually alert and orient x4 but just prior to presentation to the ER the patient was alert and oriented x2. After IV fluid hydration and antibiotic administration the patient's encephalopathy had resolved. The patient reports that for the last couple of days she has been having generalized body aches. She thought it was from when she had fallen 3 days ago. She reported that she had been working in the [employer] and fell backwards onto her buttocks. She denies having any back pain or flank pain similar to her prior episodes of pyelonephritis and infected kidney stone. She did have decreased appetite on Friday and had 1 episode of emesis on Friday before coming to the ER. She denied having any abdominal pain. She had not notice any dysuria hematuria or changes in urinary frequency. She had noticed that her urine had been darker than usual but she thought that that was due to drinking too much soda. Visual changes. She has been able to drink liquids since admission the hospital and has not had any further emesis. She reports resolution of her body aches. Review of Systems Review of Systems: Narrative: 12 systems were reviewed with pertinent positives and negatives per HPI. Except as documented in the HPI, all other systems were reviewed and are negative. [facility] Past Medical History Medical History (Updated 09/05/20 @ 04:22 by Arnoldo Ryder MD) Atrial fibrillation Nephrolithiasis Osteoarthritis Surgical History Surgical History (Updated 09/05/20 @ 03:51 by Chelsi Brady DO) History of cholecystectomy Status post laser lithotripsy of ureteral calculus January 2020 Family History Family History Mother Carcinoma of colon Social History Social History (Updated 09/05/20 @ 04:02 by Chelsi Brady DO) Social History: Primary care physician: Dr. Herbert Thomas Surrogate decision maker: Loretta Maya, daughter. Code status: Full code. Smoking packs per day: 1 Smoking cigarettes per day: 20.0 Years smoked: 10 Smoking pack-years: 10.00 Smoking status: Never smoker Tobacco type: cigarettes Smoking end date: 06/30/88 Additional smoking assessment comments: QUIT 1988 Alcohol intake: never Substance use: never Substance use type: does not use Additional living arrangements comments: The patient lives in [place] with her grandson and 2 dogs. 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 Spiritual care concerns: No Meds Home Medications and Allergies Home Medications Medication Instructions Recorded Confirmed Type cyanocobalamin (vitamin B-12) 1,000 mcg PO QAM #30 tablet 01/24/20 09/04/20 Rx [Vitamin B-12] metoprolol succinate 12.5 mg PO QAM #30 tablet 01/24/20 09/04/20 Rx apixaban [Eliquis] 5 mg PO Q12H 09/05/20 09/05/20 History Allergies Allergy/AdvReac Type Severity Reaction Status Date / Time No Known Allergies Allergy Verified 09/04/20 19:41 Vital Signs Vital Signs - 24 hr 09/04/20 19:24 09/04/20 20:58 09/04/20 22:40 Temperature 103.1 F H 99.5 F Pulse Rate 112 H 100 76 Respiratory Rate 29 H 15 21 H Blood Pressure 188/89 H 156/70 H 134/57 L Pulse Oximetry 98 100 97 09/04/20 22:55 09/05/20 00:00 Temperature 98.6 F Pulse Rate 77 72 Respiratory Rate 18 Blood Pressure 134/66 Pulse Oximetry 97 Exam Narrative: Exam Narrative: PHYSICAL EXAM: WEIGHT 61 kg BMI 21.1 General: No acute distress, well-developed
[2020-09-05] MEDS: LACTATED RINGERS 1,000 ML 100 ML IV CONT ×2 (04:52→15:01)
[2020-09-05 05:53] LABS: Hematocrit 36.6 % (37.0-47.0); Immature Platelet Fraction Pct 3.6 % (0.9-11.2); Mean Corpuscular HGB Conc 32.8 g/dl (32-36); Mean Corpuscular Hemoglobin 31.9 pg (26-34); Mean Corpuscular Volume 97.3 fl (80-100); Mean Platelet Volume 10.7 fl (7.4-10.4); Platelet Count Result 138 k/mm3 (150-375); Red Blood Count 3.76 M/mm3 (4.2-5.4); Red Cell Distribution Width 12.4 % (11.5-14.5); White Blood Count 4.9 K/mm3 (4.5-10.0)
[2020-09-05 06:05] LABS: Anion Gap 4 mmol/L (8-16); Blood Urea Nitrogen 12 mg/dL (7-17); Calcium 9.6 mg/dL (8.4-10.2); Carbon Dioxide 27 mmol/L (22-30); Chloride 107 mmol/L (98-107); Estimated CRCL calculation 54 ml/min; Estimated Glomerular Filt Rate > 60; Glucose 101 mg/dL (65-105); Potassium 3.9 mmol/L (3.4-5.0); Sodium 138 mmol/L (137-145)
[2020-09-05] MEDS: APIXABAN 5 MG TABLET PO ×2 (08:09→20:26)
[2020-09-05] MEDS: CYANOCOBALAMIN 1,000 MCG TABLET 1000 MCG PO (08:09)
[2020-09-05] MEDS: METOPROLOL SUCCINATE EXT REL 12.5 MG TABCR PO (08:10)
[2020-09-05 12:21] LABS: SARS-CoV-2 RNA PCR Negative
--- NOTE | 2020-09-05 17:48 | PM.IMPN ---
Progress Note: A&P Assessment and Plan (1) UTI (urinary tract infection): Qualifiers: Hematuria presence: without hematuria Urinary tract infection type: acute cystitis Qualified Code(s): N30.00 - Acute cystitis without hematuria Code(s): N39.0 - Urinary tract infection, site not specified Status: Acute Assessment and Plan: Patient presents with lethargy and confusion found to have UTI. Continue IV ceftriaxone with urine and blood cultures all growing Gram negative bacilli. Monitor cultures and tailor abx accordingly. Continue supportive care. (2) Septicemia: Code(s): A41.9 - Sepsis, unspecified organism Status: Acute Assessment and Plan: See above. Evident by fever and tachycardia both resolved. COVID negative. Suspected source is urinary. Monitor blood and urine cultures, abx as above. Monitor vital signs and urinary output. She has history of UTI with bacteremia Jan 2020 with E coli. (3) Metabolic encephalopathy: Code(s): G93.41 - Metabolic encephalopathy Status: Resolved Assessment and Plan: Resolved and suspect was related to above. Patient back at baseline. (4) Thrombocytopenia: Code(s): D69.6 - Thrombocytopenia, unspecified Status: Acute Assessment and Plan: Mild and may be related to acute infection. Monitor CBC. (5) Pulmonary nodule: Code(s): R91.1 - Solitary pulmonary nodule Status: Acute Assessment and Plan: COVID negative, consider CT chest for further evaluation. Subjective Date/time seen: 09/05/20 1500 Interval history: Ms. Quintero is a 69yo F admitted with UTI and bacteremia. She reports feeling much better today and is eager for discharge. She denies chest pain, shortness of breath, nausea or vomiting today. She denies dysuria or frequency. Tolerating oral intake. Review of Systems Review of Systems: All systems reviewed & are unremarkable except as noted in HPI and below Exam Narrative: Exam Narrative: General: Female resting comfortably supine in bed in no acute distress. HEENT: Normocephalic, EOMI, oral mucosa moist. Cardiovascular: Rate and rhythm are regular. Respiratory: Lungs clear to auscultation bilaterally. Respirations even and non-labored. Abdomen: Soft, non-tender, non-distended, bowel sounds present. Extremities: Peripheral pulses intact. No edema or pain to palpation. Neuro: No focal neurological deficits. Speech is clear. Objective Data Vital Signs Vital Signs: Vital Signs - 24 hr 09/04/20 19:24 09/04/20 20:58 09/04/20 22:40 Temperature 103.1 F H 99.5 F Pulse Rate 112 H 100 76 Respiratory Rate 29 H 15 21 H Blood Pressure 188/89 H 156/70 H 134/57 L Pulse Oximetry 98 100 97 09/04/20 22:55 09/05/20 00:00 09/05/20 04:00 Temperature 98.6 F Pulse Rate 77 72 64 Respiratory Rate 18 Blood Pressure 134/66 Pulse Oximetry 97 09/05/20 05:00 09/05/20 08:00 09/05/20 08:10 Temperature 98 F 97.7 F Pulse Rate 64 78 76 Respiratory Rate 16 18 Blood Pressure 130/60 134/60 Pulse Oximetry 100 100 09/05/20 12:00 Temperature 99.8 F H Pulse Rate 78 Respiratory Rate 18 Blood Pressure 159/70 H Pulse Oximetry 99 Intake/Output Intake/Output: Intake & Output 09/02/20 09/03/20 09/04/20 09/05/20 23:59 23:59 23:59 23:59 Intake Total 1150 1580 Output Total 600 Balance 550 1580 Meds/Results Medications: Active Medications Generic Name Dose Route Start Last Admin Trade Name Freq PRN Reason Stop Dose Admin Apixaban 5 mg 09/05/20 09:00 09/05/20 08:09 Apixaban 5 Mg Tablet PO 5 mg Q12HR DAYDAY Administration Cyanocobalamin 1,000 mcg 09/05/20 09:00 09/05/20 08:09 Cyanocobalamin 1,000 Mcg Tablet PO 1,000
[2020-09-06] MEDS: LACTATED RINGERS 1,000 ML 100 ML IV CONT ×2 (01:01→09:14)
[2020-09-06 06:00] VITALS: BP 156/76; PULSE 63; RESP 16; TEMP 36.3; O2SAT 100
[2020-09-06] MEDS: CYANOCOBALAMIN 1,000 MCG TABLET 1000 MCG PO (09:12)
[2020-09-06 09:13] VITALS: PULSE 63
[2020-09-06] MEDS: METOPROLOL SUCCINATE EXT REL 12.5 MG TABCR PO (09:13)
[2020-09-06] MEDS: APIXABAN 5 MG TABLET PO ×2 (09:13→21:21)
[2020-09-06 12:39] VITALS: O2SAT 98
[2020-09-06 14:00] VITALS: BP 156/74; PULSE 70; RESP 16; TEMP 36.1; O2SAT 98
--- NOTE | 2020-09-06 14:36 | PM.IMPN ---
Progress Note: A&P Assessment and Plan (1) UTI (urinary tract infection): Qualifiers: Hematuria presence: without hematuria Urinary tract infection type: acute cystitis Qualified Code(s): N30.00 - Acute cystitis without hematuria Code(s): N39.0 - Urinary tract infection, site not specified Status: Acute Assessment and Plan: Patient presents with lethargy and confusion found to have UTI. Continue IV ceftriaxone (day 3) with urine and blood cultures pending. Blood cultures growing E coli, urine culture not yet isolated but also with Gm neg bacilli. Monitor cultures and tailor abx accordingly once we get sensitivity reports. (2) Septicemia: Code(s): A41.9 - Sepsis, unspecified organism Status: Acute Assessment and Plan: See above. Evident by fever and tachycardia both resolved. COVID negative. Suspected source is urinary. Monitor blood and urine cultures, abx as above. Monitor vital signs and urinary output. She has history of UTI with bacteremia Jan 2020 with E coli. (3) Metabolic encephalopathy: Code(s): G93.41 - Metabolic encephalopathy Status: Resolved Assessment and Plan: Resolved and suspect was related to above. Patient back at baseline. (4) Thrombocytopenia: Code(s): D69.6 - Thrombocytopenia, unspecified Status: Acute Assessment and Plan: Mild and may be related to acute infection. Monitor CBC. (5) Pulmonary nodule: Code(s): R91.1 - Solitary pulmonary nodule Status: Inactive Assessment and Plan: Entered in error. I cannot find imaging with pulmonary nodule in EMR or hard copy of chart. (6) Paroxysmal atrial fibrillation: Code(s): I48.0 - Paroxysmal atrial fibrillation Status: Chronic Assessment and Plan: Rate controlled, sounds to be in regular rhythm. Continue home metoprolol and home Eliquis. Subjective Date/time seen: 09/06/20 14:30 Interval history: Ms. Quintero is a 69yo F admitted with UTI and bacteremia. She reports feeling better and is eager for discharge. We have again discussed the importance of staying on IV antibiotics while awaiting final blood and urine culture results. She ate [place] her daughter brought for lunch without abdominal pain, nausea or vomiting. Denies chest pain or shortness of breath. Review of Systems Review of Systems: All systems reviewed & are unremarkable except as noted in HPI and below Exam Narrative: Exam Narrative: General: Female resting comfortably supine in bed in no acute distress. HEENT: Normocephalic, EOMI, oral mucosa moist. Cardiovascular: Rate and rhythm are regular. Respiratory: Lungs clear to auscultation bilaterally. Respirations even and non-labored. Abdomen: Soft, non-tender, non-distended, bowel sounds present. Extremities: Peripheral pulses intact. No edema or pain to palpation. Neuro: No focal neurological deficits. Speech is clear. Objective Data Vital Signs Vital Signs: Vital Signs - 24 hr 09/05/20 17:54 09/05/20 21:45 09/06/20 06:00 Temperature 97.8 F 97.4 F L 97.4 F L Pulse Rate 80 63 Respiratory Rate 16 16 Blood Pressure 140/59 L 156/76 H Pulse Oximetry 96 100 09/06/20 09:13 09/06/20 12:39 Temperature Pulse Rate 63 Respiratory Rate Blood Pressure Pulse Oximetry 98 Intake/Output Intake/Output: Intake & Output 09/03/20 09/04/20 09/05/20 09/06/20 23:59 23:59 23:59 23:59 Intake Total 1150 2320 3390 Output Total 600 Balance 550 2320 3390 Meds/Results Medications: Active Medications Generic Name Dose Route Start Last Admin Trade Name Freq PRN Reason Stop Dose Admin Apixaban 5 mg 09/05/20 09:00 08/28
[2020-09-06 20:00] VITALS: PULSE 65; RESP 18; O2SAT 98
[2020-09-06 22:00] VITALS: BP 165/84; PULSE 65; RESP 18; TEMP 36.5; O2SAT 98
[2020-09-07 05:42] VITALS: BP 164/65; PULSE 69; RESP 18; TEMP 37; O2SAT 98
[2020-09-07 06:10] LABS: Basophils Percent Auto 0.3 % (0.2-1.2); Eosinophils Absolute Auto 0.1 K/mm3 (0-0.3); Eosinophils Percent Auto 2.9 % (0-4.4); Hemoglobin 11.4 g/dL (12.0-15.0); Immature Granulocyte Absolute 0.01 K/mm3 (0.00-0.031); Immature Granulocyte Percent A 0.3 % (0-0.5); Lymphocytes Absolute Auto 0.91 K/mm3 (0.9-3.2); Lymphocytes Percent Auto 26.2 % (18.3-44.2); Mean Corpuscular HGB Conc 33.5 g/dl (32-36); Mean Corpuscular Hemoglobin 31.7 pg (26-34); Mean Corpuscular Volume 94.4 fl (80-100); Mean Platelet Volume 10.8 fl (7.4-10.4); Monocytes Absolute Auto 0.5 K/mm3 (0.1-0.6); Monocytes Percent Auto 14.7 % (2.6-8.5); Neutrophils Absolute Auto 1.9 K/mm3 (1.3-6.7); Neutrophils Percent Auto 55.6 % (45.5-73.1); Platelet Count Result 144 k/mm3 (150-375); Red Cell Distribution Width 12.2 % (11.5-14.5); White Blood Count 3.5 K/mm3 (4.5-10.0)
[2020-09-07 06:21] LABS: Anion Gap 2 mmol/L (8-16); Blood Urea Nitrogen 11 mg/dL (7-17); Carbon Dioxide 31 mmol/L (22-30); Chloride 107 mmol/L (98-107); Estimated CRCL calculation 54 ml/min; Estimated Glomerular Filt Rate > 60; Glucose 90 mg/dL (65-105); Magnesium 1.8 mg/dL (1.6-2.3); Potassium 3.5 mmol/L (3.4-5.0); Sodium 140 mmol/L (137-145)
[2020-09-07 08:56] VITALS: PULSE 84
[2020-09-07] MEDS: CYANOCOBALAMIN 1,000 MCG TABLET 1000 MCG PO (08:56)
[2020-09-07] MEDS: METOPROLOL SUCCINATE EXT REL 12.5 MG TABCR PO (08:56)
[2020-09-07] MEDS: APIXABAN 5 MG TABLET PO (08:56)
--- NOTE | 2020-09-07 12:05 | PM.DS ---
DS: Admitting Diagnosis Admitting Diagnosis Admitting Diagnosis: UTI DS: Discharge Diagnosis Discharge Diagnosis (1) UTI (urinary tract infection): Qualifiers: Hematuria presence: without hematuria Urinary tract infection type: acute cystitis Qualified Code(s): N30.00 - Acute cystitis without hematuria Code(s): N39.0 - Urinary tract infection, site not specified Status: Acute Assessment and Plan: Date of Admission 09/04/20 Date of Discharge 09/07/20 Ms. Quintero is a pleasant 69yo F with history of atrial fibrillation who presented to the ED for evaluation of lethargy and altered mental status. On arrival she was found to have UTI and ultimately blood cultures and urine cultures grew E coli. She was treated with IV ceftriaxone for 4 days and discharged with oral antibiotics to complete a 14-day course. Her cognition quickly returned to baseline and vital signs were stable, she was eager for discharge. She was in atrial fibrillation rate controlled on her home metoprolol and maintained on her long-term anticoagulation with her home Eliquis. She is hemodynamically stable for discharge on 09/07/20 with instructions to continue antibiotics and follow up with PCP. Patient presents with lethargy and confusion found to have UTI. Urine and blood cultures growing E coli - treated with 4 days of IV ceftriaxone discharge with oral antibiotics to complete the course based on sensitivity report. (2) Septicemia: Code(s): A41.9 - Sepsis, unspecified organism Status: Acute Assessment and Plan: See above. Evident by fever and tachycardia both resolved. COVID negative. Suspected source is urinary. She has history of UTI with bacteremia Jan 2020 with E coli in the setting of nephrolithiasis. (3) Metabolic encephalopathy: Code(s): G93.41 - Metabolic encephalopathy Status: Resolved Assessment and Plan: Resolved and suspect was related to above. Patient back at baseline. (4) Thrombocytopenia: Code(s): D69.6 - Thrombocytopenia, unspecified Status: Acute Assessment and Plan: Mild and may be related to acute infection. (5) Paroxysmal atrial fibrillation: Code(s): I48.0 - Paroxysmal atrial fibrillation Status: Chronic Assessment and Plan: Rate controlled, sounds to be in regular rhythm. Maintained on home metoprolol and home Eliquis. DS: Summary Hospital Course Hospital Course: See above. Time Spent with Patient Time attestation: Total time spent providing and/or coordinating discharge services: 35 minutes Exam Narrative: Exam Narrative: General: Female resting comfortably supine in bed in no acute distress. HEENT: Normocephalic, EOMI, oral mucosa moist. Cardiovascular: Rate and rhythm are regular. Respiratory: Lungs clear to auscultation bilaterally. Respirations even and non-labored. Abdomen: Soft, non-tender, non-distended, bowel sounds present. Extremities: Peripheral pulses intact. No edema or pain to palpation. Neuro: No focal neurological deficits. Speech is clear. DS: Data Data Completed and Pending Labs on day of discharge: Last Vital Signs Temp 98.6 F 09/07/20 05:42 Pulse 84 09/07/20 08:56 Resp 18 09/07/20 05:42 BP 164/65 H 09/07/20 05:42 Pulse Ox 98 09/07/20 05:42 Laboratory Tests 09/07/20 05:23 09/07/20 05:23 Discharge Plan Discharge Attending physician on discharge: Carlota Ji Consulting providers: Best Newman Discharging Clinician: Mackenzie Lanza Anticipated Discharge Date/Time: 09/07/20 13:00 Patient Disposition: Home, Self-Care Activity: as tolerated Diet: as tolerated Discharge Instruc
== END 2020-09-07 13:30 | disposition home or self-care (01) | DRG 871 ==
LOC: ANHED 19:59 → ANH3MEDSUR 23:09
PROVIDERS: Admitting Provider Internal Medicine; Emergency Provider Emergency Medicine; PCP Family Medicine; Visit Provider Physician Assistant
DX: A41.9 Sepsis, unspecified organism (principal); G93.41 Metabolic encephalopathy; N30.00 Acute cystitis without hematuria; B96.20 Unspecified Escherichia coli [E. coli] as the cause of diseases classified elsewhere; R65.20 Severe sepsis without septic shock; Z20.822 Contact with and (suspected) exposure to COVID-19; R91.1 Solitary pulmonary nodule; I48.0 Paroxysmal atrial fibrillation; D69.6 Thrombocytopenia, unspecified; M19.90 Unspecified osteoarthritis, unspecified site; Z79.01 Long term (current) use of anticoagulants; Z79.899 Other long term (current) drug therapy; Z87.442 Personal history of urinary calculi; Z87.891 Personal history of nicotine dependence
CPT/HCPCS: 36415; 51701; 80048; 80053; 81001; 83605; 83735; 85025; 85027; 85055; 85610; 85730; 86140; 87040; 87077; 87086; 87088; 87186; 93005; 96365; 96375; 97161; 97165; 99285; A9270; C9803; J0131; J0696; J7030; J7120; U0003; U0005

== ENCOUNTER 2020-09-26 11:56 | Inpatient (IN) | payer MEDICARE, MEDICAID, SELFPAY ==
[2020-09-26] VITALS (29 sets, daily range): BP systolic 107–152; BP diastolic 56–97; PULSE 63–89; RESP 17–27; TEMP 36.4–36.7; O2SAT 89–98
--- NOTE | ~2020-09-26 | XR_ITS ---
XR chest 2V 09/26/2020 13:35 Indication: Shortness of breath. Cough. Recent Covid infection. Procedure: 2 view chest Comparison: 01/21/2020 Findings: Patchy bilateral airspace disease, predominantly basilar, consistent with pneumonia. No ple ural effusion. Heart size is normal. No pneumothorax. No acute osseous abnormality. There are cholecy stectomy clips. Impression: 1: Patchy bilateral airspace disease, consistent with pneumonia. Reviewed, dictated and finalized at location B. Impression: 1: Patchy bilateral airspace disease, consistent with pneumonia.
--- NOTE | 2020-09-26 12:45 | ECG_ITS ---
Measurements Intervals [place] Rate: 81 P: 71 WI: 189 QRS: 63 QRSD: 100 T: 68 QT: 357 QTc: 417 Interpretive Statements SINUS RHYTHM BASELINE ARTIFACT- I NORMAL ECG Electronically Signed On 09-26-2020 13:00:19 CDT by Best Newman D.O.
[2020-09-26 12:57] LABS: Basophils Percent Auto 0.3 % (0.2-1.2); Eosinophils Percent Auto 0.3 % (0-4.4); Hematocrit 39.6 % (37.0-47.0); Hemoglobin 13.2 g/dL (12.0-15.0); Immature Granulocyte Absolute 0.02 K/mm3 (0.00-0.031); Immature Granulocyte Percent A 0.6 % (0-0.5); Lymphocytes Absolute Auto 0.49 K/mm3 (0.9-3.2); Lymphocytes Percent Auto 13.8 % (18.3-44.2); Mean Corpuscular HGB Conc 33.3 g/dl (32-36); Mean Corpuscular Hemoglobin 30.8 pg (26-34); Mean Corpuscular Volume 92.3 fl (80-100); Mean Platelet Volume 10.9 fl (7.4-10.4); Monocytes Absolute Auto 0.4 K/mm3 (0.1-0.6); Monocytes Percent Auto 10.4 % (2.6-8.5); Neutrophils Absolute Auto 2.7 K/mm3 (1.3-6.7); Neutrophils Percent Auto 74.6 % (45.5-73.1); Platelet Count Result 179 k/mm3 (150-375); Red Blood Count 4.29 M/mm3 (4.2-5.4); Red Cell Distribution Width 11.9 % (11.5-14.5); White Blood Count 3.6 K/mm3 (4.5-10.0)
[2020-09-26 13:15] LABS: Alanine Aminotransferase 26 U/L (4-35); Alkaline Phosphatase 86 U/L (38-126); Anion Gap 5 mmol/L (8-16); Aspartate Amino Transferase 44 U/L (14-36); Bilirubin,Total 1.5 mg/dL (0.2-1.3); Blood Urea Nitrogen 19 mg/dL (7-17); Calcium 10.5 mg/dL (8.4-10.2); Carbon Dioxide 33 mmol/L (22-30); Chloride 103 mmol/L (98-107); Estimated CRCL calculation 46 ml/min; Estimated Glomerular Filt Rate > 60; Glucose 100 mg/dL (65-105); Potassium 3.8 mmol/L (3.4-5.0); Sodium 141 mmol/L (137-145)
--- NOTE | 2020-09-26 15:44 | PC.NURSE ---
Pt given walking pulse ox test: started test at 91% O2 on room air, pulse ox dropped to 89% during the test.
--- NOTE | 2020-09-26 15:59 | ED.GENADULT ---
HPI - General Adult General Chief complaint: Dizziness Stated complaint: dizzy, not feeling well x 2-3 days Time Seen by Provider: 09/26/20 15:17 History of Present Illness HPI narrative: Patient is a 69-year-old female who presents ER with shortness of breath and weakness. Patient was diagnosed with COVID-19 8 days ago. She has had progressive exertional decline. She reports she can only walk 3 to 5 feet before becoming very short of breath and having to sit down to rest. No chest pain or chest pressure. Has had persistent cough that is nonproductive. Reports because she is not getting better she is come in for further evaluation. Related Data Home Medications Medication Instructions Recorded Confirmed Eliquis 5 mg PO Q12H 09/05/20 09/05/20 Allergies Allergy/AdvReac Type Severity Reaction Status Date / Time No Known Allergies Allergy Verified 09/04/20 19:41 Review of Systems Review of Systems: All systems reviewed & are unremarkable except as noted in HPI and below Constitutional: Constitutional: Denies chills, Reports fatigue, Denies fever(s) and Reports weakness ENT: Denies nasal congestion and Denies sore throat Cardiovascular: Cardiovascular: Denies chest pain, Denies rapid heart rate and Denies radiating jaw, neck or arm pain Respiratory: Respiratory: Denies chest congestion, Reports cough, Reports dyspnea and Denies wheezing Gastrointestinal: Gastrointestinal: Denies abdominal pain, Denies nausea and Denies vomiting PMF Past Medical History Medical History (Updated 09/26/20 @ 18:02 by Darren Mckeon MD) Atrial fibrillation Nephrolithiasis Osteoarthritis Surgical History Surgical History (Updated 09/05/20 @ 03:51 by Chelsi Brady DO) History of cholecystectomy Status post laser lithotripsy of ureteral calculus January 2020 Family History Family History Mother Carcinoma of colon Social History Social History (Updated 09/05/20 @ 04:02 by Chelsi Brady DO) Social History: Primary care physician: Dr. Herbert Thomas Surrogate decision maker: Loretta Maya, daughter. Code status: Full code. Smoking packs per day: 1 Smoking cigarettes per day: 20.0 Years smoked: 10 Smoking pack-years: 10.00 Smoking status: Never smoker Tobacco type: cigarettes Smoking end date: 06/30/88 Additional smoking assessment comments: QUIT 1988 Alcohol intake: never Substance use: never Substance use type: does not use Additional living arrangements comments: The patient lives in [place] with her grandson and 2 dogs. 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 Gender identity (if verbalized by the patient): Female Spiritual care concerns: No Exam Narrative: Exam Narrative: GENERAL: Well-appearing, well-nourished, and in no acute distress. HEAD: Normocephalic, atraumatic. CHEST: Clear to auscultation. No respiratory distress. HEART: Regular rate and rhythm. Normal peripheral pulses. ABDOMEN: Soft, nontender, nondistended. EXTREMITIES: Normal range of motion. No edema. SKIN: Warm, dry, no rash. NEURO: Alert and oriented x3. PSYCH: Normal mood and affect. Course Course Emergency Course: Exertional hypoxia in the room. Admit to hospitalist service with IV dexamethasone daily. Patient aware of diagnosis and treatment plan. Vital Signs Vital signs: Vital Signs Temperature 97.5 F L 09/26/20 12:39 Pulse Rate 89 09/26/20 12:39 Respiratory Rate 18 09/26/20 12:39 Blood Pressure 114/69 09/26/20 12:39 Pulse Oximetry 93 09/26/20 12:39 Temperature 97.5 F L 09/26/20 12:39 Pulse Rate 73 09/26/20 17:38 Respiratory Rate 22 H 09/26/20 17:38 Blood Pressure 151/73 H 09/26/20 17:38 Pulse Oximetry 97 09/26/20 17:38 Medical Decision Making Vital Signs Vital Signs: Vital Signs Temperature 97.5 F L 09/26/20 12:39 Pulse Rate 89 09/26/20
[2020-09-26] MEDS: DEXAMETHASONE SOD PHOS INJ 4 MG/ML VIAL 6 MG IV PUSH (16:32)
--- NOTE | 2020-09-26 19:26 | ADMGEN ---
This patient, Juany Quintero, was admitted to 3 [facility] Surg Room 325-01. Patient/family oriented to hospital policies and general routines including ID bracelet, bed and alarms, visiting hours, pain management, procedures, bathroom and other care routines, personal items, smoking policy, room service/diet, and visiting hours. Information on how to activate the Rapid Response Team has been discussed. Patient/Family are encouraged to report perceived risks to care and to ask questions if they do not understand what they are told or what they should do.
[2020-09-26] MEDS: ALBUTEROL SULFATE (*SP) INHALER 4 PUFF INHALATION (21:04)
--- NOTE | 2020-09-26 21:26 | PM.IMHP ---
H&P: HPI History of Present Illness Date/Time: 09/26/20 21:26 this is a 69-year-old female patient who was admitted here on 09/05/2020. The patient was here at that time for urinary tract infection. Her urine was found to grow E coli. She is treated with ceftriaxone for 4 days and discharge. She was to complete a 14 day course of antibiotics orally. The patient stated that she was feeling fine and had completed the antibiotics. The patient has a history of paroxysmal atrial fibrillation. The patient comes into the emergency room shortness of breath or weakness. The patient was diagnosed with COVID-19 8 days ago at [facility]. She has had a persistent cough. The patient was found to be afebrile and had a pulse of ox of 93%. The patient was placed on oxygen at 2 L per nasal cannula. She was started on Decadron. The patient stated that she could only walk about 3 or 4 ft before she becomes short of breath. No other family members in the house so are positive for COVID. Chest x-ray was read as patchy bilateral airspace disease consistent with pneumonia. The patient is being admitted for observation on the date of service of 09/26/2020 Chief Complaint: Shortness of breath Review of Systems Review of Systems: All systems reviewed & are unremarkable except as noted in HPI and below Constitutional: Constitutional: Reports as per HPI and Reports no additional constitutional complaints Eyes: Eyes: Reports as per HPI and Reports no additional eye complaints ENT: Reports system reviewed and no additional complaints, except as documented and Reports Normal hearing present Cardiovascular: Cardiovascular: Reports no additional cardiovascular complaints Respiratory: Respiratory: Reports no additional respiratory complaints and Reports no additional respiratory complaints Gastrointestinal: Gastrointestinal: Reports as per HPI and Reports no additional gastrointestinal complaints Musculoskeletal: Musculoskeletal: Reports no additional musculoskeletal complaints Integumentary/Breasts: Skin/Breast: Reports system reviewed and no additional complaints, except as docu and Reports as per HPI Neurologic: Reports system reviewed and no additional complaints, except as documented, Reports as per HPI and Reports Normal hearing present Psychiatric: Psychiatric: Reports no additional psychiatric complaints and Reports as per HPI Endocrine: Endocrine: Reports no additional endocrine complaints Hematologic/Lymphatic: Hematologic/Lymphatic: Reports no additional hematologic/lymphatic complaints Allergic/Immunologic: Allergic/Immunologic: Reports no additional allergic/immunologic complaints [facility] Past Medical History Medical History (Updated 09/26/20 @ 18:02 by Darren Mckeon MD) Atrial fibrillation Nephrolithiasis Osteoarthritis Surgical History Surgical History (Updated 09/05/20 @ 03:51 by Chelsi Brady DO) History of cholecystectomy Status post laser lithotripsy of ureteral calculus January 2020 Family History Family History (Updated 09/26/20 @ 21:32 by Lety Madden NP) Mother Carcinoma of colon Father DVT (deep venous thrombosis) Social History Social History (Updated 09/26/20 @ 21:33 by Lety Madden NP) Social History: The patient is the patient is retired from [employer]. Her daughter Loretta is a durable power insurance attorney for healthcare. Loretta's the only child she has. She quit smoking in 1988. The patient desires to be a full code. Primary care physician: Dr. Herbert Thomas Surrogate decision maker: Loretta Maya, daughter. Code status: Full code. Smoking packs per day: 1 Smoking cigarettes per day: 20.0 Years smoked: 10 Smoking pack-years: 10.00 Tobacco type: cigarettes Second hand tobacco smoke exposure: No Smoking end date: 06/30/88 Additional smoking assessment comments: QUIT 1988 Alcohol intake: never Substance use: never Substance use type:
[2020-09-26 21:57] LABS: Alanine Aminotransferase 26 U/L (4-35); Estimated CRCL calculation 58 ml/min; Estimated Glomerular Filt Rate > 60
[2020-09-26] MEDS: APIXABAN 5 MG TABLET PO (23:36)
[2020-09-26] MEDS: REMDESIVIR 200 MG/NS 250 ML 200 MG/250 ML BAG 250 MG IVPB (23:36)
[2020-09-27] VITALS (12 sets, daily range): BP systolic 108–142; BP diastolic 59–73; PULSE 62–81; RESP 16–20; TEMP 36–36.8; O2SAT 94–97
[2020-09-27] MEDS: ALBUTEROL SULFATE (*SP) INHALER 4 PUFF INHALATION ×4 (03:00→21:04)
[2020-09-27 07:09] LABS: Alanine Aminotransferase 23 U/L (4-35); Estimated CRCL calculation 51 ml/min; Estimated Glomerular Filt Rate > 60
[2020-09-27] MEDS: METOPROLOL SUCCINATE EXT REL 12.5 MG TABCR PO (10:32)
[2020-09-27] MEDS: DEXAMETHASONE SOD PHOS INJ 4 MG/ML VIAL 6 MG IV PUSH (10:32)
[2020-09-27] MEDS: APIXABAN 5 MG TABLET PO ×2 (10:33→21:04)
[2020-09-27] MEDS: PANTOPRAZOLE 40 MG TABLET PO ×2 (14:28→21:04)
--- NOTE | 2020-09-27 15:34 | PM.IMPN ---
Progress Note: A&P Assessment and Plan (1) Pneumonia due to 2019-nCoV: Code(s): U07.1 - COVID-19; J12.82 - Pneumonia due to coronavirus disease 2019 Status: Acute Assessment and Plan: The patient's symptoms Of COVID began a few days after being discharged from our hospital on 09/07/2020. She developed some weakness and dry cough and was tested. She had been doing well at home but had been coughing so much, with shortness of breath as well as generalized weakness and decided to come into the emergency room for further evaluation. Chest x-ray shows patchy bilateral airspace disease consistent with pneumonia. Since she has COVID this is from COVID pneumonia. We do not have her on any antibiotics at this time. She is on IV Remdesivir and dexamethasone. Will order PT/OT for generalized weakness and fatigue DVT prophylaxis with home Eliquis She is on isolation precautions. Albuterol inhaler scheduled every 6 hours. P.r.n. medications and incentive spirometer. (2) Paroxysmal atrial fibrillation: Code(s): I48.0 - Paroxysmal atrial fibrillation Status: Chronic Assessment and Plan: Continue with Eliquis and metoprolol. Time Spent With Patient Time with patient: 25 - 35 minutes Subjective Date/time seen: 09/27/20 15:34 Interval history: Date of Service 08/28/20: Patient reports feeling slightly better today. She does not feel as short of breath with talking on the phone to her family. She still has a dry cough which causes her chest and abdomen muscles to be sore. Patient did have an episode of nausea this morning when she was smelling her breakfast. She did not have any vomiting episodes. She denies any fevers, chills, abdominal pain, leg swelling, calf pain, blood in sputum production, urinary issues or any other complaints at this time. Review of Systems Review of Systems: All systems reviewed & are unremarkable except as noted in HPI and below Exam Narrative: Exam Narrative: General: 69-year-old woman sitting up in bed watching TV. Resting comfortably on 1 L at this time. Appears comfortable. In no acute distress. Skin: No jaundice or cyanosis. Good skin turgor. Neck: Full range of motion. Supple. Respiratory: Lungs are clear to auscultation bilaterally. No wheezing, rales or rhonchi. No bony chest wall tenderness. Cardiovascular: The heart has a regular rate and rhythm without murmur. Lower extremities: No lower extremity edema. Distal pulses are easily palpated. No calf tenderness to palpation. Gastrointestinal: The abdomen is soft, nontender and nondistended with active bowel sounds. Psychiatric: Lucid and oriented. Memory intact. Neurologic: No focal deficits. Speech is clear. No facial drooping. Objective Data Vital Signs Vital Signs: Vital Signs - 24 hr 09/26/20 15:43 09/26/20 16:24 09/26/20 16:30 Temperature Pulse Rate 74 74 Respiratory Rate 27 H Blood Pressure Pulse Oximetry 89 L 09/26/20 16:31 09/26/20 16:45 09/26/20 16:46 Temperature Pulse Rate 73 71 70 Respiratory Rate Blood Pressure 132/79 134/79 Pulse Oximetry 09/26/20 17:00 09/26/20 17:01 09/26/20 17:15 Temperature Pulse Rate 71 73 73 Respiratory Rate 26 H Blood Pressure 128/80 Pulse Oximetry 09/26/20 17:16 09/26/20 17:30 09/26/20 17:32 Temperature Pulse Rate 79 73 74 Respiratory Rate 21 H 21 H Blood Pressure 124/93 H 152/97 H Pulse Oximetry 09/26/20 17:38 09/26/20 17:45 09/26/20 17:46 Temperature Pulse Rate 73 69 71 Respiratory Rate 22 H 26 H 27 H Blood Pressure 151/73 H 139/89 Pulse Oximetry 97 09/26/20 18:00 09/26/20 18:01 09/26/20 18:34 Temperature 98.0 F Pulse Rate 69 63 79 Respiratory Rate 27 H 20 18 Blood Pressure 147/89 H 129/76 Pulse Oximetry 98 09/26/20 18:53 09/26/20 20:00 09/26/20 21:12 Temperature
--- NOTE | 2020-09-27 15:49 | PM.IMPN ---
Progress Note: A&P Assessment and Plan (1) Pneumonia due to 2019-nCoV: Code(s): U07.1 - COVID-19; J12.82 - Pneumonia due to coronavirus disease 2019 Status: Acute Assessment and Plan: The patient's symptoms Of COVID began a few days after being discharged from our hospital on 09/07/2020. She developed some weakness and dry cough and was tested. She had been doing well at home but had been coughing so much, with shortness of breath as well as generalized weakness and decided to come into the emergency room for further evaluation. Chest x-ray shows patchy bilateral airspace disease consistent with pneumonia. Since she has COVID this is from COVID pneumonia. We do not have her on any antibiotics at this time. She is on IV Remdesivir and dexamethasone. Will order PT/OT for generalized weakness and fatigue DVT prophylaxis with home Eliquis She is on isolation precautions. Albuterol inhaler scheduled every 6 hours. P.r.n. medications and incentive spirometer. (2) Paroxysmal atrial fibrillation: Code(s): I48.0 - Paroxysmal atrial fibrillation Status: Chronic Assessment and Plan: Continue with Eliquis and metoprolol. Time Spent With Patient Time with patient: 25 - 35 minutes Subjective Date/time seen: 09/27/20 15:49 Interval history: Date of Service 09/27/20: Patient reports feeling slightly better today. She does not feel as short of breath with talking on the phone to her family. She still has a dry cough which causes her chest and abdomen muscles to be sore. Patient did have an episode of nausea this morning when she was smelling her breakfast. She did not have any vomiting episodes. She denies any fevers, chills, abdominal pain, leg swelling, calf pain, blood in sputum production, urinary issues or any other complaints at this time. Review of Systems Review of Systems: All systems reviewed & are unremarkable except as noted in HPI and below Exam Narrative: Exam Narrative: General: 69-year-old woman sitting up in bed watching TV. Resting comfortably on 1 L at this time. Appears comfortable. In no acute distress. Skin: No jaundice or cyanosis. Good skin turgor. Neck: Full range of motion. Supple. Respiratory: Lungs are clear to auscultation bilaterally. No wheezing, rales or rhonchi. No bony chest wall tenderness. Cardiovascular: The heart has a regular rate and rhythm without murmur. Lower extremities: No lower extremity edema. Distal pulses are easily palpated. No calf tenderness to palpation. Gastrointestinal: The abdomen is soft, nontender and nondistended with active bowel sounds. Psychiatric: Lucid and oriented. Memory intact. Neurologic: No focal deficits. Speech is clear. No facial drooping. Objective Data Vital Signs Vital Signs: Vital Signs - 24 hr 09/26/20 16:24 09/26/20 16:30 09/26/20 16:31 Temperature Pulse Rate 74 74 73 Respiratory Rate 27 H Blood Pressure 132/79 Pulse Oximetry 09/26/20 16:45 09/26/20 16:46 09/26/20 17:00 Temperature Pulse Rate 71 70 71 Respiratory Rate 26 H Blood Pressure 134/79 Pulse Oximetry 09/26/20 17:01 09/26/20 17:15 09/26/20 17:16 Temperature Pulse Rate 73 73 79 Respiratory Rate 21 H Blood Pressure 128/80 124/93 H Pulse Oximetry 09/26/20 17:30 09/26/20 17:32 09/26/20 17:38 Temperature Pulse Rate 73 74 73 Respiratory Rate 21 H 22 H Blood Pressure 152/97 H 151/73 H Pulse Oximetry 97 09/26/20 17:45 09/26/20 17:46 09/26/20 18:00 Temperature Pulse Rate 69 71 69 Respiratory Rate 26 H 27 H 27 H Blood Pressure 139/89 Pulse Oximetry 09/26/20 18:01 09/26/20 18:34 09/26/20 18:53 Temperature 98.0 F Pulse Rate 63 79 79 Respiratory Rate 20 18 18 Blood Pressure 147/89 H 129/76 Pulse Oximetry 98 98 09/26/20 20:00 09/26/20 21:12 09/26/20 22:00 Temperature
[2020-09-27] MEDS: SODIUM CHLORIDE NASAL GEL 14.1 GM 1 APPLIC NASAL (21:04)
[2020-09-27] MEDS: REMDESIVIR 100 MG/NS 250 ML 100 MG/250 ML BAG 250 MG IVPB (22:12)
[2020-09-28] MEDS: ALBUTEROL SULFATE (*SP) INHALER 4 PUFF INHALATION ×3 (02:45→14:06)
[2020-09-28 04:31] VITALS: BP 114/57; PULSE 60; RESP 18; TEMP 36.2; O2SAT 97
[2020-09-28 07:14] LABS: Mean Corpuscular HGB Conc 33.3 g/dl (32-36); Mean Corpuscular Hemoglobin 30.5 pg (26-34); Mean Corpuscular Volume 91.6 fl (80-100); Mean Platelet Volume 11.6 fl (7.4-10.4); Platelet Count Result 195 k/mm3 (150-375); Red Blood Count 3.93 M/mm3 (4.2-5.4); Red Cell Distribution Width 11.8 % (11.5-14.5); White Blood Count 4.3 K/mm3 (4.5-10.0)
[2020-09-28 07:31] LABS: Alanine Aminotransferase 29 U/L (4-35); Albumin Level 3.5 g/dL (3.5-5.1); Alkaline Phosphatase 82 U/L (38-126); Anion Gap 1 mmol/L (8-16); Aspartate Amino Transferase 35 U/L (14-36); Bilirubin,Total 1.1 mg/dL (0.2-1.3); Blood Urea Nitrogen 26 mg/dL (7-17); Calcium 10.9 mg/dL (8.4-10.2); Carbon Dioxide 36 mmol/L (22-30); Chloride 105 mmol/L (98-107); Estimated CRCL calculation 52 ml/min; Estimated Glomerular Filt Rate > 60; Glucose 132 mg/dL (65-105); Lactate Dehydrogenase 394 U/L (313-618); Potassium 3.7 mmol/L (3.4-5.0); Sodium 142 mmol/L (137-145)
[2020-09-28 08:00] VITALS: BP 129/72; PULSE 60; RESP 18; TEMP 36.6; O2SAT 93
[2020-09-28 08:53] VITALS: PULSE 92
[2020-09-28] MEDS: PANTOPRAZOLE 40 MG TABLET PO (08:53)
[2020-09-28] MEDS: DEXAMETHASONE SOD PHOS INJ 4 MG/ML VIAL 6 MG IV PUSH (08:53)
[2020-09-28] MEDS: APIXABAN 5 MG TABLET PO (08:53)
[2020-09-28] MEDS: METOPROLOL SUCCINATE EXT REL 12.5 MG TABCR PO (08:53)
[2020-09-28 10:45] VITALS: PULSE 73; O2SAT 93
[2020-09-28 10:50] VITALS: PULSE 88; O2SAT 91
[2020-09-28 11:00] VITALS: PULSE 74; O2SAT 92
--- NOTE | 2020-09-28 11:17 | PCRCNOTE ---
HOME O2 EVAL COMPLETE, NO REQUIREMENTS
--- NOTE | 2020-09-28 14:32 | PM.DS ---
DS: Admitting Diagnosis Admitting Diagnosis Admitting Diagnosis: SOB DS: Discharge Diagnosis Discharge Diagnosis (1) Pneumonia due to 2019-nCoV: Code(s): U07.1 - COVID-19; J12.82 - Pneumonia due to coronavirus disease 2018 Status: Acute Assessment and Plan: (2) Paroxysmal atrial fibrillation: Code(s): I48.0 - Paroxysmal atrial fibrillation Status: Chronic Assessment and Plan: Continue with Eliquis and metoprolol. DS: Summary Hospital Course Reason for hospitalization: Patient is a 69-year-old woman with a history of paroxysmal atrial fibrillation on Eliquis, who presented to the emergency room with shortness of breath. The patient's symptoms Of COVID began a few days after being discharged from our hospital on 09/07/2020. She developed some weakness and dry cough and was tested. She had been doing well at home but had been coughing so much, with shortness of breath as well as generalized weakness and decided to come into the emergency room for further evaluation. Chest x-ray shows patchy bilateral airspace disease consistent with pneumonia. Since she has COVID this is from COVID pneumonia. We do not have her on any antibiotics at this time. She was admitted and started on IV Remdesivir and dexamethasone. She is feeling better at this time. She does not require any oxygen at rest or with exertion per home oxygen evaluation. She is eating better. Denies any fevers, chills. Improvement of her cough. Since she is 10 days out of a positive COVID test she no longer needs to isolate from COVID. Told her to continue dexamethasone for 7 more days p.o., using her incentive spirometer, eating and drinking to stay hydrated and continue being active. Patient has plans to be discharged home with her daughter Loretta for the next few days for further evaluation and observation. Return to ER warnings given. The patient understands and agrees with the plan all questions answered. Hospital Course: See above Status at Discharge Cognitive/behavioral status at discharge: Stable, improved. Time Spent with Patient Time attestation: Total time spent providing and/or coordinating discharge services: 40 Time spent: Greater than 30 minutes Exam Narrative: Exam Narrative: General: 69-year-old woman sitting up in bed watching TV. Appears comfortable, resting comfortably on room air. In no acute distress. Skin: No jaundice or cyanosis. Good skin turgor. Neck: Full range of motion. Supple. Respiratory: Decreased breath sounds bilaterally, no wheezing ,rales or rhonchi. No bony chest wall tenderness. Cardiovascular: The heart has a regular rate and rhythm without murmur. Lower extremities: No lower extremity edema. Distal pulses are easily palpated. No calf tenderness to palpation. Gastrointestinal: The abdomen is soft, nontender and nondistended with active bowel sounds. Psychiatric: Lucid and oriented. Memory intact. Neurologic: No focal deficits. Speech is clear. No facial drooping. DS: Data Data Completed and Pending Labs on day of discharge: Labs from last 24 hours 09/28/20 09/28/20 09/28/20 06:51 06:51 06:51 WBC 4.3 L RBC 3.93 L Hgb 12.0 Hct 36.0 L MCV 91.6 MCH 30.5 MCHC 33.3 RDW 11.8 Plt Count 195 MPV 11.6 H Sodium 142 Potassium 3.7 Chloride 105 Carbon Dioxide 36 H Anion Gap 1 L BUN 26 H Creatinine 0.80 Estim Creat Clear Calc 52 Estimated GFR > 60 Glucose 132 H Calcium 10.9 H Ferritin 723.00 H Total Bilirubin 1.1 AST 35 ALT 29 Alkaline Phosphatase 82 Lactate Dehydrogenase 394 C-Reactive Protein 4.0 H Total Protein 7.0 Albumin 3.5 Discharge Plan Discharge Attending physician on discharge: Jaclyn Jiang Discharging Clinician:
== END 2020-09-28 15:40 | disposition home or self-care (01) | DRG 177 ==
LOC: ANHED 15:17 → ANH3MEDSUR 17:10
PROVIDERS: Nurse Practitioner; Physician Assistant; Admitting Provider Internal Medicine; Emergency Provider Emergency Medicine; PCP Family Medicine; Visit Provider Family Medicine
DX: U07.1 COVID-19 (principal); J12.82 Pneumonia due to coronavirus disease 2019; I48.0 Paroxysmal atrial fibrillation; M19.90 Unspecified osteoarthritis, unspecified site; Z90.49 Acquired absence of other specified parts of digestive tract; Z87.891 Personal history of nicotine dependence; Z79.01 Long term (current) use of anticoagulants
CPT/HCPCS: 36415; 71046; 80053; 82565; 82728; 83615; 84460; 85025; 85027; 86140; 93005; 94618; 94640; 96374; 96376; 97161; 97165; 99285; A9270; G0378; J1100

== ENCOUNTER 2020-11-23 12:11 | Outpatient (CLI) | payer MEDICARE, MEDICAID, SELFPAY ==
--- NOTE | ~2020-11-23 | MMUS_ITS ---
EXAMINATION: MM diagnostic brittni LT w tyler, US breast LT limited HISTORY: Possible left breast mass on screening mammogram TECHNIQUE: Additional 3-D tomosynthesis images of the left breast were performed and synthetic 2-D im ages were generated. CAD analysis was submitted and interpreted. High resolution limited left breast ultrasound was performed. COMPARISON: 07/13/2020 BREAST PARENCHYMAL COMPOSITION: There are scattered areas of fibroglandular density. FINDINGS: MAMMOGRAPHIC FINDINGS: There is an 8 mm oval, obscured, equal density mass in the anterior third of the slightly outer breas t near the nipple. No suspicious calcification or architectural distortion are identified. ULTRASOUND: There is a 7 mm x 4 mm oval, circumscribed, complex cystic and solid mass at the 5:00 location 1 cm f rom the nipple which demonstrates posterior acoustic enhancement and no internal vascularity. A 6 m x 2 mm cyst is noted at the 2:00 location 1 cm from the nipple. IMPRESSION: 1. Likely cluster of microcysts at the 5:00 location 1 cm from the nipple. 2. Recommend 6 month follow-up left diagnostic mammogram and ultrasound. BI-RADS category 3, probably benign findings. Reviewed, dictated and finalized at location A. IMPRESSION: 1. Likely cluster of microcysts at the 5:00 location 1 cm from the nipple. 2. Recommend 6 month follow-up left diagnostic mammogram and ultrasound. BI-RADS category 3, probably benign findings.
== END 2020-11-23 12:12 | disposition home or self-care (01) ==
PROVIDERS: PCP Family Medicine; Visit Provider Family Medicine
DX: R92.8 Other abnormal and inconclusive findings on diagnostic imaging of breast (principal)
CPT/HCPCS: 76642; 77061; 77065; G0279

== ENCOUNTER 2021-05-31 12:48 | Outpatient (CLI) | payer MEDICARE, MEDICAID, SELFPAY ==
[2021-05-31 13:24] LABS: Cholesterol 248 mg/dL (0-200); HDL Direct 72 mg/dL; Triglycerides 128 mg/dL (<150)
[2021-05-31 13:35] LABS: LDL Cholesterol Direct 132 mg/dL
[2021-05-31 16:51] LABS: Vitamin D 25 Hydroxy 45.4 ng/mL
== END 2021-05-31 12:49 | disposition home or self-care (01) ==
LOC: ANHLAB 12:54
PROVIDERS: PCP Family Medicine; Visit Provider Family Medicine
DX: E78.01 Familial hypercholesterolemia (principal); E55.9 Vitamin D deficiency, unspecified
CPT/HCPCS: 36415; 80061; 82306

== ENCOUNTER 2022-10-03 16:32 | Inpatient (IN) | payer MEDICARE, MEDICAID, SELFPAY ==
--- NOTE | ~2022-10-03 | XR_ITS ---
EXAMINATION: XR retrograde pyelo w/stent RT DATE: 10/04/2022 08:34 INDICATION: Right ureteral stone. TECHNIQUE: 81 intraoperative fluoroscopic views of the abdomen and pelvis were obtained. I was not pr esent. Fluoroscopy exposure time was 24 seconds. COMPARISON: CT abdomen and pelvis 10/03/2022 FINDINGS: There are stones in left kidney and left renal pelvis. The right-sided retrograde pyelogram demonstrates a stone in proximal right ureter and right hydronephrosis. The final images demonstrate a right internal ureteral stent in expected position. IMPRESSION: 1. Stone in the proximal right ureter with right hydronephrosis. 2. Right internal ureteral stent in expected position. 3. Stones in the left kidney and left renal pelvis. Reviewed, dictated and finalized at location A.
--- NOTE | ~2022-10-03 | CT_ITS ---
EXAMINATION: CT abdomen pelvis wo con DATE: 10/03/2022 21:41 INDICATION: Right flank pain TECHNIQUE: Computed tomography (CT) of the abdomen and pelvis was performed without intravenous contr ast. Automated exposure control and iterative reconstruction technique were employed. Exam dose: 286 .66 mGy-cm total exam DLP. COMPARISON: 01/17/2020 CT chest abdomen pelvis FINDINGS: The lung bases are clear of infiltrate or consolidation. Normal heart size. No pericardial or pleural effusion. Small sliding hiatal hernia. Status post cholecystectomy. No hepatic, splenic, pancreatic or adrenal space-occupying mass lesion is detected. There is approximately 4 x 7 mm obstructing calculus at the right ureteropelvic junction with promine nt right hydronephrosis and right perinephric, parapelvic and proximal periureteral stranding as a re sult. 5.4 cm right renal cyst. There are 4 large stones of the left renal pelvis and lower pole of the left kidney, the largest teresa uring approximately 10.5 x 16.2 mm, with attenuation of 1372 Hounsfield units. There are a couple of additional pinpoint nonobstructing left renal parenchymal calculi. No left hydr oureteronephrosis. There is a small amount of air in the nondependent aspect of the urinary bladder. No intraluminal mas s lesion wall thickening the urinary bladder is noted. The uterus and adnexal areas are unremarkable. There is fusiform infrarenal abdominal aortic aneurysm, measuring up to approximately 3.4 cm maximal dimension. Diverticulosis of the sigmoid and descending and ascending colon; no CT evidence of diverticulitis. N o bowel obstruction or intraperitoneal free air. Diffuse idiopathic skeletal hyperostosis of the thoracic and lumbar spine. IMPRESSION: 4 x 7 mm nonobstructing right ureteropelvic junction calculus with prominent right hydro nephrosis and right perinephric, parapelvic and proximal ureteral stranding Prominent nonobstructive nephrolithiasis of the left kidney 5.4 cm right renal cyst Approximately 3.4 cm infrarenal fusiform abdominal aortic aneurysm Status post cholecystectomy Small sliding hiatal hernia Normal appendix Diverticulosis of the colon; no CT evidence of diverticulitis Reviewed, dictated and finalized at Location A. Reviewed, dictated and finalized at location A. IMPRESSION: 4 x 7 mm nonobstructing right ureteropelvic junction calculus with prominent right hydronephrosis and right perinephric, parapelvic and proximal ureteral stranding Prominent nonobstructive nephrolithiasis of the left kidney 5.4 cm right renal cyst Approximately 3.4 cm infrarenal fusiform abdominal aortic aneurysm Status post cholecystectomy Small sliding hiatal hernia Normal appendix Diverticulosis of the colon; no CT evidence of diverticulitis
[2022-10-03 16:55] VITALS: BP 176/75; PULSE 80; RESP 18; TEMP 37.7; O2SAT 100
[2022-10-03 17:15] LABS: Basophils Percent Auto 0.3 % (0.2-1.2); Eosinophils Percent Auto 0.1 % (0-4.4); Hematocrit 40.7 % (37.0-47.0); Hemoglobin 13.5 g/dL (12.0-15.0); Immature Granulocyte Absolute 0.04 K/mm3 (0.00-0.031); Immature Granulocyte Percent A 0.4 % (0-0.5); Lymphocytes Absolute Auto 0.55 K/mm3 (0.9-3.2); Lymphocytes Percent Auto 5.6 % (18.3-44.2); Mean Corpuscular HGB Conc 33.2 g/dl (32-36); Mean Corpuscular Hemoglobin 31.9 pg (26-34); Mean Corpuscular Volume 96.2 fl (80-100); Mean Platelet Volume 10.2 fl (7.4-10.4); Monocytes Absolute Auto 0.7 K/mm3 (0.1-0.6); Neutrophils Absolute Auto 8.5 K/mm3 (1.3-6.7); Neutrophils Percent Auto 86.6 % (45.5-73.1); Platelet Count Result 206 k/mm3 (150-375); Red Blood Count 4.23 M/mm3 (4.2-5.4); Red Cell Distribution Width 12.3 % (11.5-14.5); White Blood Count 9.9 K/mm3 (4.5-10.0)
[2022-10-03 17:23] LABS: Alanine Aminotransferase 13 U/L (6-35); Albumin Level 4.4 g/dL (3.5-5.1); Alkaline Phosphatase 120 U/L (38-126); Anion Gap 4 mmol/L (8-16); Aspartate Amino Transferase 27 U/L (14-36); Bilirubin,Total 1.5 mg/dL (0.2-1.3); Blood Urea Nitrogen 12 mg/dL (7-17); Calcium 10.1 mg/dL (8.4-10.2); Carbon Dioxide 29 mmol/L (22-30); Chloride 103 mmol/L (98-107); Estimated CRCL calculation 51 ml/min; Estimated Glomerular Filt Rate > 60; Glucose 116 mg/dL (65-110); Potassium 4.4 mmol/L (3.4-5.0); Sodium 136 mmol/L (137-145)
[2022-10-03 17:26] LABS: Appearance Urine Turbid (Clear); Bacteria Urine 4+ /hpf; Bilirubin Urine Negative (Negative); Blood Urine 3+ (Negative); Color Urine Yellow (Yellow); Glucose Urine UA Negative (Negative); Ketones Urine Negative (Negative); Leukocyte Esterase Ur 3+ LEU/UL (Negative); Nitrate Urine Negative (Negative); Non Pathogenic Casts 0-2; Protein Urine 1+ mg/dL (Negative); RBC Urine >100 /hpf (0-2); Specific Grav Ur 1.011 (1.001-1.035); Squamous Epithelial Cell Urine Few /hpf (Few); WBC Urine >100 /hpf; pH Urine 6.5 (5.0-9.0)
[2022-10-03 17:30] LABS: Add Urine Microscopic? YES
[2022-10-03 20:33] VITALS: BP 154/78; PULSE 81; TEMP 37.2; O2SAT 100
--- NOTE | 2022-10-03 21:32 | ED.BACK ---
HPI - Back Pain/Injury General Chief Complaint: Back Pain/Injury <EMILI Hinkle Last Filed: 10/04/22 02:36> Stated Complaint: R. flank pain <EMILI Hinkle Last Filed: 10/04/22 02:36> Time Seen by Provider: 10/03/22 21:20 <EMILI Hinkle Last Filed: 10/04/22 02:36> History of Present Illness HPI Narrative: 71-year-old female with a history of paroxysmal atrial fibrillation, sepsis, hydroureteronephrosis, MICAELA reports for evaluation of right flank pain x1 day. States the pain does not radiate anywhere, stays in her right flank and describes the pain as stabbing . Patient reports she was hospitalized 1 year ago for a 13 cm kidney stone with sepsis and underwent lithotripsy. She denies nausea, vomiting, diarrhea, abdominal pain, chest pain or shortness of breath, fever, body aches, chills, dysuria, urinary frequency or urgency, gross hematuria. <EMILI Hinkle Last Filed: 10/04/22 02:36> Related Data Home Medications: Home Medications Medication Instructions Recorded Confirmed apixaban 5 mg tablet (Eliquis) 5 mg PO Q12H 09/05/20 10/04/22 metoprolol succinate 25 mg 25 mg PO QAM 10/04/22 10/04/22 tablet,extended release 24 hr <EMILI Hinkle Last Filed: 10/04/22 02:36> Allergies/Adverse Reactions: Allergies Allergy/AdvReac Type Severity Reaction Status Date / Time No Known Allergies Allergy Verified 09/04/20 19:41 <EMILI Hinkle Last Filed: 10/04/22 02:36> Review of Systems Review of Systems: CONSTITUTIONAL: Denies fever, chills EYES: Denies visual changes, redness, or discharge. ENT: Denies rhinorrhea, congestion, sore throat, or otalgia. CARDIOVASCULAR: Denies chest pain, palpitations, or edema. RESPIRATORY: Denies cough or dyspnea. GASTROINTESTINAL: Denies abdominal pain, nausea, vomiting, or diarrhea. GENITOURINARY: Denies dysuria or hematuria. SKIN: Denies rash or itching. MUSCULOSKELETAL: Denies joint pain, or myalgia. NEUROLOGIC: Denies headache, numbness, dizziness, or weakness. PSYCHIATRIC: Denies anxiety or depression. <Reema Hernandez PA-C - Last Filed: 10/04/22 02:36> [facility] Past Medical History Medical History: Medical History Atrial fibrillation Nephrolithiasis Osteoarthritis <Reema Hernandez PA-C - Last Filed: 10/04/22 02:36> Surgical History Surgical History: Surgical History History of cholecystectomy Status post laser lithotripsy of ureteral calculus January 2020 <Reema Hernandez PA-C - Last Filed: 10/04/22 02:36> Family History Family History: Family History Mother Carcinoma of colon Father DVT (deep venous thrombosis) <Reema Hernandez PA-C - Last Filed: 10/04/22 02:36> Social History Social History: Social History Social History: The patient is the patient is retired from [employer]. Her daughter Loretta is a durable power rabies inspector for healthcare. Loretta's the only child she has. She quit smoking in 1988. The patient desires to be a full code. Primary care physician: Dr. Herbert Thomas Surrogate decision maker: Loretta Maya, daughter. Code status: Full code. Smoking packs per day: 1 Smoking cigarettes per day: 20.0 Years smoked: 10 Smoking pack-years: 10.00 Smoking status: Former smoker Tobacco type: cigarettes Second hand tobacco smoke exposure: No Smoking end date: 06/30/88 Additional smoking assessment comments: QUIT 1988 Alcohol intake: never Substance use: never Substance use type: does not use Lack of Transportation: No Lack of Food: Never True Current Housing: I Have Housing Concerned About Future Housing: No Difficulty Paying Gas/Electric [place]
[2022-10-03] MEDS: SODIUM CHLORIDE 0.9% IV 1,000 ML 999 ML IV CONT (22:09)
[2022-10-03 22:36] LABS: Lactic Acid Reflex 0.9 mmol/L (0.7-2.0)
[2022-10-03] MEDS: MORPHINE SULFATE (*CRX) 2 MG/ML INJ IV PUSH (22:55)
[2022-10-03 22:58] VITALS: BP 141/57; PULSE 67; RESP 17; O2SAT 100
--- NOTE | 2022-10-03 23:26 | PM.IMHP ---
H&P: HPI History of Present Illness Date/Time: 10/03/22 23:26 Chief Complaint: Flank pain Narrative: This is a 71-year-old female with past medical history significant for atrial fibrillation, rate controlled, anticoagulated, kidney stones, osteoarthritis. Patient presents to the emergency room due to back pain of 1 day duration, chills, denies any dysuria, denies poor appetite, denies nausea, vomiting, diarrhea. Has been in her usual state of health up until this point preliminary workup was significant for urinalysis with numerous WBCs present. A CT of abdomen and pelvis was reported as: CT of abdomen and pelvis was reported as; FINDINGS: The lung bases are clear of infiltrate or consolidation. Normal heart size. No pericardial or pleural effusion. Small sliding hiatal hernia. Status post cholecystectomy. No hepatic, splenic, pancreatic or adrenal space-occupying mass lesion is detected. There is approximately 4 x 7 mm obstructing calculus at the right ureteropelvic junction with prominent right hydronephrosis and right perinephric, parapelvic and proximal periureteral stranding as a result. 5.4 cm right renal cyst. There are 4 large stones of the left renal pelvis and lower pole of the left kidney, the largest measuring approximately 10.5 x 16.2 mm, with attenuation of 1372 Hounsfield units. There are a couple of additional pinpoint nonobstructing left renal parenchymal calculi. No left hydroureteronephrosis. There is a small amount of air in the nondependent aspect of the urinary bladder. No intraluminal mass lesion wall thickening the urinary bladder is noted. The uterus and adnexal areas are unremarkable. There is fusiform infrarenal abdominal aortic aneurysm, measuring up to approximately 3.4 cm maximal dimension. Diverticulosis of the sigmoid and descending and ascending colon; no CT evidence of diverticulitis. No bowel obstruction or intraperitoneal free air. ?Diffuse idiopathic skeletal hyperostosis of the thoracic and lumbar spine. IMPRESSION:? 4 x 7 mm nonobstructing right ureteropelvic junction calculus with prominent right hydronephrosis and right perinephric, parapelvic and proximal ureteral stranding Prominent nonobstructive nephrolithiasis of the left kidney 5.4 cm right renal cyst Approximately 3.4 cm infrarenal fusiform abdominal aortic aneurysm Status post cholecystectomy Small sliding hiatal hernia Normal appendix Diverticulosis of the colon; no CT evidence of diverticulitis Review of Systems Review of Systems: Back pain, flank pain, chills Constitutional: Constitutional: Reports chills, Denies fatigue, Denies fever(s), Denies lethargy, Denies malaise, Denies night sweats, Denies poor appetite and Denies weakness Eyes: Eyes: Denies change in vision ENT: Denies dysphagia and Denies odynophagia Cardiovascular: Cardiovascular: Denies chest pain, Denies lightheadedness, Denies radiating jaw, neck or arm pain and Denies palpitations Respiratory: Respiratory: Denies chest congestion, Denies cough and Denies excessive phlegm production Gastrointestinal: Gastrointestinal: Denies abdominal pain, Denies dyspepsia, Denies heartburn, Denies diarrhea, Denies nausea and Denies vomiting Genitourinary: Genitourinary: Reports flank pain Musculoskeletal: Musculoskeletal: Reports back pain, Denies myalgias, Denies joint swelling and Denies muscle weakness Integumentary/Breasts: Skin/Breast: Denies rash Neurologic: Denies focal weakness and Denies Sensory deficit (Neuro) Psychiatric: Psychiatric: Reports no additional psychiatric complaints and Reports as per HPI Endocrine: Endocrine: Denies cold intolerance, Denies flushing, Denies heat intolerance, Denies polyphagia, Denies polydipsia and Denies palpitations Hematologic/Lymphatic: Hematologic/Lymphatic: Reports no additional hematologic/lymphatic complaints and Reports as per HPI Allergic/Immunologic: Allergic/Immunologic: Reports no additional allergic/immunologic complaint
[2022-10-04] VITALS (21 sets, daily range): BP systolic 106–188; BP diastolic 54–92; PULSE 61–94; RESP 14–18; TEMP 36.6–38.2; O2SAT 95–100; BMI 22.4
--- NOTE | 2022-10-04 01:25 | ADMGEN ---
This patient, Juany Quintero, was admitted to 2 Medical Room 251-01. Patient/family oriented to hospital policies and general routines including ID bracelet, bed and alarms, visiting hours, pain management, procedures, bathroom and other care routines, personal items, smoking policy, room service/diet, and visiting hours. Information on how to activate the Rapid Response Team has been discussed. Patient/Family are encouraged to report perceived risks to care and to ask questions if they do not understand what they are told or what they should do.
[2022-10-04] MEDS: SODIUM CHLORIDE 0.9% IV 1,000 ML 125 ML IV CONT (01:55)
[2022-10-04] MEDS: MORPHINE SULFATE (*CRX) 4 MG/ML INJ IV PUSH (04:22)
--- NOTE | 2022-10-04 06:26 | WPDURCON ---
Assessment and Plan Assessment and plan (1) Bilateral renal stones: Code(s): N20.0 - Calculus of kidney Status: Acute (2) Pyelonephritis: Code(s): N12 - Tubulo-interstitial nephritis, not specified as acute or chronic Status: Acute Assessment and Plan: Patient appears to have an obstructing right proximal ureteral stone with obstructive right pyelonephritis. CT shows perinephric stranding and inflammation around the right kidney in the stone, by my review, it appears to be obstructing her ureter. Will plan cystoscopy with right ureteral stent placement today. Once her urinary tract infection has been adequately treated and we get clearance for her to stop anticoagulation she will need right ESWL. For the larger stone in her left kidney she would best be served with percutaneous nephrolithotomy at some time. We will place a stent today. 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 Urology Consult Note HPI Date Seen: 10/04/22 Requesting Physician: Rick Rocha MD Primary Care Provider: Herbert Thomas MD Consult Narrative Narrative: Juany Quintero is a 71 year old female Is known to us from prior urolithiasis, although we have not seen her since June 2020. She has had sizable kidney stones in the past that have required ESWL, most recently in January 2020. When last seen she was instructed to follow-up annually but has not been compliant with that. She presents to the emergency department with 24 period of chilling and question fevers. Her urine looked infected and CT imaging demonstrates a partially obstructing 7 mm right UPJ stone. Additionally she has a large left renal pelvic stone. She denies significant flank pain or hematuria. Review of Systems Cardiovascular: Cardiovascular: Denies chest pain, Denies lightheadedness, Denies palpitations and Denies dyspnea Respiratory: Respiratory: Denies dyspnea Gastrointestinal: Gastrointestinal: Denies diarrhea, Denies nausea and Denies vomiting Genitourinary: Genitourinary: Denies hematuria and Denies dysuria Endocrine: Endocrine: Denies palpitations PMFSH Past Medical History Medical History Atrial fibrillation Nephrolithiasis Osteoarthritis Surgical History Surgical History History of cholecystectomy Status post laser lithotripsy of ureteral calculus January 2020 Family History Family History Mother Carcinoma of colon Father DVT (deep venous thrombosis) Social History Social History Social History: The patient is the patient is retired from [employer]. Her daughter Loretta is a durable power health care attorney for healthcare. Loretta's the only child she has. She quit smoking in 1988. The patient desires to be a full code. Primary care physician: Dr. Herbert Thomas Surrogate decision maker: Loretta Maya, daughter. Code status: Full code. Smoking packs per day: 1 Smoking cigarettes per day: 20.0 Years smoked: 10 Smoking pack-years: 10.00 Smoking status: Former smoker Tobacco type: cigarettes Second hand tobacco smoke exposure: No Smoking end date: 06/30/88 Additional smoking assessment comments: QUIT 1988 Alcohol intake: never Substance use: never Substance use type: does not use Lack of Transportation: No Lack of Food: Never True Current Housing: I Have Housing Concerned About Future Housing: No Difficulty Paying Gas/Electric Bills: No Difficulty Paying for Meds: No Currently Unemployed: No Education: High School Diploma/GED Difficulty w/ Childcare or Family Care: No Living arrangements: with family Additional living arran
--- NOTE | 2022-10-04 07:10 | PC.NURSE ---
Report called to Gracie CORREA Preop.
--- NOTE | 2022-10-04 07:26 | WPDHPUPDATE1 ---
History and Physical Update Update Date/Time: 10/04/22 07:26 History and Physical has been reviewed, including an updated exam of the patient. There are NO changes in the patient's condition. Risks, benefits, and alternatives have been discussed and questions answered. Patient agrees to proceed with procedure.
--- NOTE | 2022-10-04 07:40 | PC.NURSE ---
To OR via stretcher.
--- NOTE | 2022-10-04 07:54 | WPDANESEPPF ---
Anes - Initial Pre Proc Eval Procedure: Operation Date: 10/04/22 08:15 Proposed Procedures p Cystoscopy, Right Stent Placement - Jas Tobin MD Date/Time: 10/04/22 07:54 Surgeon: Rick Rocha MD Pre Op Diagnosis: UTI, nephrolithiasis Patient Data Age: 71 Gender: F Height: 1.68 m Weight: 63.2 kg Last Vital Signs Temp 36.7 C 10/04/22 05:05 Pulse 62 10/04/22 05:05 Resp 18 10/04/22 07:20 BP 150/59 H 10/04/22 05:05 Pulse Ox 100 10/04/22 07:20 O2 Del Method Room Air 10/04/22 07:20 Allergies Allergy/AdvReac Type Severity Reaction Status Date / Time No Known Allergies Allergy Verified 09/04/20 19:41 Home Medications Medication Instructions Recorded Confirmed Type apixaban 5 mg tablet (Eliquis) 5 mg PO Q12H 09/05/20 10/04/22 History metoprolol succinate 25 mg 25 mg PO QAM 10/04/22 10/04/22 History tablet,extended release 24 hr Laboratory Tests 10/03/22 10/03/22 10/03/22 17:05 17:05 17:14 WBC 9.9 K/mm3 K/mm3 (4.5-10.0) RBC 4.23 M/mm3 M/mm3 (4.2-5.4) Hgb 13.5 g/dL g/dL (12.0-15.0) Hct 40.7 % % (37.0-47.0) MCV 96.2 fl fl (80-100) MCH 31.9 pg pg (26-34) MCHC 33.2 g/dl g/dl (32-36) RDW 12.3 % % (11.5-14.5) Plt Count 206 k/mm3 k/mm3 (150-375) MPV 10.2 fl fl (7.4-10.4) Immature Gran % (Auto) 0.4 % % (0-0.5) Neut % (Auto) 86.6 % H % (45.5-73.1) Lymph % (Auto) 5.6 % L % (18.3-44.2) [place] % (Auto) 7.0 % % (2.6-8.5) Eos % (Auto) 0.1 % % (0-4.4) Baso % (Auto) 0.3 % % (0.2-1.2) Lymph # (Auto) 0.55 K/mm3 L K/mm3 (0.9-3.2) [place] # (Auto) 0.7 K/mm3 H K/mm3 (0.1-0.6) Eos # (Auto) 0.0 K/mm3 K/mm3 (0-0.3) Baso # (Auto) 0.0 K/mm3 K/mm3 (0.0-0.1) Abs Immat Gran (auto) 0.04 K/mm3 H K/mm3 (0.00-0.031) Absolute Neuts (auto) 8.5 K/mm3 H K/mm3 (1.3-6.7) Absolute Nucleated RBC 0.0 K/mm3 K/mm3 (0.0-0.012) Nucleated RBC % 0.0 % % (0.0-0.2) Sodium 136 mmol/L L mmol/L (137-145) Potassium 4.4 mmol/L mmol/L (3.4-5.0) Chloride 103 mmol/L mmol/L (98-107) Carbon Dioxide 29 mmol/L mmol/L (22-30) Anion Gap 4 mmol/L L mmol/L (8-16) BUN 12 mg/dL D mg/dL (7-17) Creatinine 0.80 mg/dL mg/dL (0.7-1.0) Estim Creat Clear Calc 51 ml/min ml/min Estimated GFR > 60 (59 - ) Glucose 116 mg/dL H mg/dL (65-110) Lactic Acid Calcium 10.1 mg/dL mg/dL (8.4-10.2) Total Bilirubin 1.5 mg/dL H mg/dL (0.2-1.3) AST 27 U/L U/L (14-36) ALT 13 U/L U/L (6-35) Alkaline Phosphatase 120 U/L U/L (38-126) Total Protein 7.0 g/dL g/dL (6.3-8.2) Albumin 4.4 g/dL g/dL (3.5-5.1) Urine Color Yellow (Yellow) Urine Appearance Turbid H (Clear) Urine pH 6.5 (5.0-9.0) Ur Specific [place] 1.011 (1.001-1.035) Urine Protein 1+ mg/dL H mg/dL (Negative) Urine Glucose (UA) Negative mg/dL mg/dL (Negative) Urine Ketones Negative mg/dL mg/dL (Negative) Ur Blood (Man) 3+ H (Negative) Urine Nitrate Negative (Negative) Urine Bilirubin Negative (Negative) Urine Urobilinogen 1.0 mg/dL mg/dL (<2.0) Leukocyte Esterase Rfl 3+ TYSON/UL H TYSON/UL (Negative) Urine RBC >100 /hpf H /hpf (0-2) Urine WBC >100 /hpf H /hpf Ur Squamous Epith Cells Few /hpf /hpf (Few) Urine Bacteria 4+ /hpf H /hpf Urine Casts 0-2 10/03/22 22:07 WBC RBC Hgb Hct MCV MCH MCHC RDW Plt Count MPV Immature Gran % (Auto)
[2022-10-04] MEDS: LIDOCAINE HCL 2% GEL UROJET 10 ML PKG MUCOUS MEM (08:23)
--- NOTE | 2022-10-04 08:32 | P.OP_ITS ---
Procedure Note - Detailed Date of Procedure 10/04/22 Pre-op Diagnosis UTI, nephrolithiasis Post-op Diagnosis Same Procedure Performed Cystoscopy, right retrograde pyelogram, right ureteral stent placement Surgeon Jas Tobin MD Superintendent Transportation None Anesthesia MAC Indications This woman with a right ureteral stone and symptoms and signs consistent with possible infection of the urinary tract. We placed in a right ureteral stent. She understands risks of bleeding, infection, damage to the urinary tract, inability to place a stent. She understands I will not be removing the stone Findings Hydronephrosis proximal stone. Stent visible on lithoduplicator operator radiograph. Uncomplicated stent placement Description of Procedure She has correctly identified. Informed consent obtained. She from the operating room. She was given MAC anesthesia. She was placed in dorsal lithotomy position. She was prepped and draped in a sterile fashion. She was already on appropriate antibiotics. A time-out performed. On cystoscopy she had cloudy urine in the bladder. Bladder otherwise normal without abnormalities or tumors. On lithoduplicator operator radiograph I can see her left renal stones as well as her right ureteral stone. I placed a guidewire into the ureter. I did a gentle retrograde pyelogram. There was no extravasation from the ureter. There was hydronephrosis proximal to the stone. A guidewire was placed in the kidney. It looped and mid pole. I placed a 4.8 variable length stent. Proximal coil in the mid pole kidney. Distal coil in the bladder. The bladder was drained. She was awakened transferred to PACU in stable condition. Estimated Blood Loss 0 Urine Output 200 Drains Yes (Variable length stent) Complications No immediate complications Condition Stable
[2022-10-04] MEDS: LACTATED RINGERS 1,000 ML 30 ML IV CONT (08:34)
[2022-10-04] MEDS: METOPROLOL SUCCINATE EXT REL 25 MG TABCR PO (10:19)
--- NOTE | 2022-10-04 11:35 | PM.IMPN ---
Progress Note: A&P Assessment and Plan (1) Pyelonephritis: Code(s): N12 - Tubulo-interstitial nephritis, not specified as acute or chronic Status: Acute Assessment and Plan: Patient is admitted to regular medical floor Started on Rocephin sp stent placement (2) Nephrolithiasis: Code(s): N20.0 - Calculus of kidney Status: Acute Assessment and Plan: Recurrent nephrolithiasis Urology consult (3) A-fib: Code(s): I48.91 - Unspecified atrial fibrillation Status: Acute Assessment and Plan: Rate controlled and anticoagulated Will hold Eliquis Subjective Date/time seen: 10/04/22 11:35 Status post procedure. No new complaints. Exam Narrative: Patient is laying in a stretcher Const: General: comfortable, no acute distress, well developed, alert, awake, average body habitus and thin Nutritional Appearance: average body habitus and thin Orientation/consciousness: patient oriented x3 HENMT: Head: normal to inspection, normocephalic and atraumatic Ears: hearing grossly normal bilaterally Face/Nose/Sinus: normal facial exam Face and sinus: normal facial exam Eyes: General: appearance normal, both eyes and all related structures Pupils: Equal, round and reactive pupils present EOM: EOMs intact bilaterally Neck: Neck: full ROM, no lymphadenopathy and no JVD Thyroid: thyroid normal Lymphatic: no lymphadenopathy noted Resp: Effort & Inspection: normal respiratory effort and able to speak in complete sentences Auscultation: clear to auscultation bilaterally Cardio: Jugular venous distension: no JVD Rate: regular rate Rhythm: regular rhythm Heart sounds: S1 normal heart sound present and S2 normal heart sound present : General: Yes CVA tenderness on the right Back/Spine/Pelvis: Back: CVA tenderness Skin: Rashes: no rashes Wounds: no wounds Neuro: General: patient oriented x3 and CN's II-XI intact bilaterally Cranial nerves: Yes CN's II-XII intact bilaterally and Yes Equal, round and reactive pupils present Cognition (Neuro): normal cognition Speech: normal speech Gait exam (Neuro): Normal gait present Motor exam (neuro): 5/5 motor strength present throughout Sensory Exam: No Sensory deficit (Neuro) Extrem: General: normal to inspection, full ROM, no joint enlargement and no pedal edema Objective Data Vital Signs Vital Signs: Vital Signs - 24 hr 10/03/22 16:55 10/03/22 20:33 10/03/22 22:58 Temperature 100 F H 98.9 F Pulse Rate 80 81 67 Respiratory Rate 18 17 Blood Pressure 176/75 H 154/78 H 141/57 H Pulse Oximetry 100 100 100 Oxygen Delivery Room Air Oxygen Flow Rate 10/04/22 01:11 10/04/22 01:23 10/04/22 01:50 Temperature 98.1 F 97.9 F Pulse Rate 69 61 Respiratory Rate 18 18 Blood Pressure 130/68 153/81 H Pulse Oximetry 97 97 Oxygen Delivery Room Air Oxygen Flow Rate 10/04/22 05:05 10/04/22 07:20 10/04/22 08:34 Temperature 98.0 F 99.8 F H Pulse Rate 62 68 Respiratory Rate 17 18 14 Blood Pressure 150/59 H 106/54 L Pulse Oximetry 100 100 100 Oxygen Delivery Room Air Simple Face Mask Oxygen Flow Rate 6 10/04/22 08:45 10/04/22 09:00 10/04/22 07:30 Temperature 100.8 F H Pulse Rate 67 67 77 Respiratory Rate 16 16 16 Blood Pressure 124/68 124/68 167/72 H Pulse Oximetry 96 96 98 Oxygen Delivery Room Air Room Air Room Air Oxygen Flow Rate 10/04/22 09:15 10/04/22 09:30 10/04/22 10:00 Temperature Pulse Rate 69 67 77 Respiratory Rate 18 16 18 Blood Pressure 145/70 H 146/72 H Pulse Oximetry 96 97 97 Oxygen Delivery Room Air Room Air Room Air Oxygen Flow Rate 10/04/22 10:19 10/04/22 10:58 Temperature Pulse Rate 77 Respiratory Rate Blood Pressure 182/86 H Pulse Oximetry Oxygen Delivery Oxygen Flow Rate Intake/Output Intake/Output: Intake & Output 10/01/22 10/02/22 10/03/22 10/04/22 23:59 23:59 23:59 23:59 Intake Total 1150 879 Output Total 400 Balance
[2022-10-04] MEDS: PHENAZOPYRIDINE HCL 100 MG TABLET 200 MG PO ×2 (12:18→16:39)
[2022-10-04] MEDS: hydrALAZINE HCL 20 MG/ML VIAL 10 MG IV PUSH (17:06)
[2022-10-04] MEDS: APIXABAN 5 MG TABLET PO (22:29)
[2022-10-05] VITALS (8 sets, daily range): BP systolic 122–157; BP diastolic 57–75; PULSE 70–83; RESP 18–20; TEMP 36.3–36.9; O2SAT 94–97
[2022-10-05] MEDS: APIXABAN 5 MG TABLET PO ×2 (08:11→20:32)
[2022-10-05] MEDS: METOPROLOL SUCCINATE EXT REL 25 MG TABCR PO (08:11)
[2022-10-05] MEDS: PHENAZOPYRIDINE HCL 100 MG TABLET 200 MG PO ×3 (08:11→16:42)
--- NOTE | 2022-10-05 12:04 | PM.IMPN ---
Progress Note: A&P Assessment and Plan (1) Pyelonephritis: Code(s): N12 - Tubulo-interstitial nephritis, not specified as acute or chronic Status: Acute Assessment and Plan: Patient is admitted to regular medical floor Started on Rocephin sp stent placement (2) Nephrolithiasis: Code(s): N20.0 - Calculus of kidney Status: Acute Assessment and Plan: Recurrent nephrolithiasis Urology consult (3) A-fib: Code(s): I48.91 - Unspecified atrial fibrillation Status: Acute Assessment and Plan: Rate controlled and anticoagulated Will hold Eliquis Subjective Date/time seen: 10/05/22 12:04 No new complaints Exam Narrative: Patient is laying in a stretcher Const: General: comfortable, no acute distress, well developed, alert, awake, average body habitus and thin Nutritional Appearance: average body habitus and thin Orientation/consciousness: patient oriented x3 HENMT: Head: normal to inspection, normocephalic and atraumatic Ears: hearing grossly normal bilaterally Face/Nose/Sinus: normal facial exam Face and sinus: normal facial exam Eyes: General: appearance normal, both eyes and all related structures Pupils: Equal, round and reactive pupils present EOM: EOMs intact bilaterally Neck: Neck: full ROM, no lymphadenopathy and no JVD Thyroid: thyroid normal Lymphatic: no lymphadenopathy noted Resp: Effort & Inspection: normal respiratory effort and able to speak in complete sentences Auscultation: clear to auscultation bilaterally Cardio: Jugular venous distension: no JVD Rate: regular rate Rhythm: regular rhythm Heart sounds: S1 normal heart sound present and S2 normal heart sound present : General: Yes CVA tenderness on the right Back/Spine/Pelvis: Back: CVA tenderness Skin: Rashes: no rashes Wounds: no wounds Neuro: General: patient oriented x3 and CN's II-XI intact bilaterally Cranial nerves: Yes CN's II-XII intact bilaterally and Yes Equal, round and reactive pupils present Cognition (Neuro): normal cognition Speech: normal speech Gait exam (Neuro): Normal gait present Motor exam (neuro): 5/5 motor strength present throughout Sensory Exam: No Sensory deficit (Neuro) Extrem: General: normal to inspection, full ROM, no joint enlargement and no pedal edema Objective Data Vital Signs Vital Signs: Vital Signs - 24 hr 10/04/22 16:45 10/04/22 16:43 10/04/22 18:06 Temperature 98.9 F 98.7 F Pulse Rate 94 78 89 Respiratory Rate 18 18 18 Blood Pressure 184/88 H 188/92 H 147/73 H Pulse Oximetry 98 97 Oxygen Delivery Room Air 10/04/22 18:06 10/04/22 22:22 10/04/22 20:00 Temperature 98.7 F Pulse Rate 89 87 87 Respiratory Rate 18 16 16 Blood Pressure 147/73 H 145/73 H Pulse Oximetry 98 95 95 Oxygen Delivery Room Air Room Air 10/05/22 02:16 10/05/22 05:50 10/05/22 08:09 Temperature 98.0 F 98.3 F 98.3 F Pulse Rate 74 78 70 Respiratory Rate 18 18 18 Blood Pressure 152/69 H 131/70 133/63 Pulse Oximetry 95 96 97 Oxygen Delivery 10/05/22 08:11 10/05/22 10:02 10/05/22 08:15 Temperature 98.5 F Pulse Rate 70 75 Respiratory Rate 18 Blood Pressure 122/57 L Pulse Oximetry 96 Oxygen Delivery Room Air Intake/Output Intake/Output: Intake & Output 10/02/22 10/03/22 10/04/22 10/05/22 23:59 23:59 23:59 23:59 Intake Total 1150 2229 840 Output Total 2500 1000 Balance 9777 -887 -820 Meds/Results Medications: Active Medications Generic Name Dose Route Start Last Admin Trade Name Freq PRN Reason Stop Dose Admin Apixaban 5 mg 10/04/22 21:00 10/05/22 08:11 Apixaban 5 Mg Tablet PO 5 mg Q12HR DAYDAY Administration Ceftriaxone Sodium 1 gm in 50 mls @ 100 mls/hr 10/04/22 21:00 10/04/22 23:00 Rocephin 1 Gm/Ns 50 Ml IVPB Infused Q24H DAYDAY Infusion Metoprolol Succinate 25 mg 10/04/22 09:35 10/05/22 08:11 Metoprolol Succinate Ext Rel 25 Mg Tabcr PO 25 mg QAM DAYDAY Administration
[2022-10-06 01:46] VITALS: BP 114/65; PULSE 67; RESP 19; TEMP 36.5; O2SAT 94
[2022-10-06 05:43] VITALS: BP 136/76; PULSE 71; RESP 20; TEMP 36.2; O2SAT 96
--- NOTE | 2022-10-06 07:38 | PM.DS ---
DS: Admitting Diagnosis Discharge Date October 06, 2022 Admitting Diagnosis Admitted for urolithiasis in UTI DS: Discharge Diagnosis Discharge Diagnosis (1) Pyelonephritis: Code(s): N12 - Tubulo-interstitial nephritis, not specified as acute or chronic Status: Acute Assessment and Plan: Patient is admitted to regular medical floor Started on Rocephin sp stent placement (2) Nephrolithiasis: Code(s): N20.0 - Calculus of kidney Status: Acute Assessment and Plan: Recurrent nephrolithiasis Urology consult (3) A-fib: Code(s): I48.91 - Unspecified atrial fibrillation Status: Acute Assessment and Plan: Rate controlled and anticoagulated Will hold Eliquis DS: Summary Hospital Course Hospital Course: Admitted for urolithiasis status post stent placement. Also had UTI-antibiotics on discharge. Follow-up with Urology Time Spent with Patient Time attestation: Total time spent providing and/or coordinating discharge services: Exam Narrative: Patient is laying in a stretcher Const: General: comfortable, no acute distress, well developed, alert, awake, average body habitus and thin Nutritional Appearance: average body habitus and thin Orientation/consciousness: patient oriented x3 HENMT: Head: normal to inspection, normocephalic and atraumatic Ears: hearing grossly normal bilaterally Face/Nose/Sinus: normal facial exam Face and sinus: normal facial exam Eyes: General: appearance normal, both eyes and all related structures Pupils: Equal, round and reactive pupils present EOM: EOMs intact bilaterally Neck: Neck: full ROM, no lymphadenopathy and no JVD Thyroid: thyroid normal Lymphatic: no lymphadenopathy noted Resp: Effort & Inspection: normal respiratory effort and able to speak in complete sentences Auscultation: clear to auscultation bilaterally Cardio: Jugular venous distension: no JVD Rate: regular rate Rhythm: regular rhythm Heart sounds: S1 normal heart sound present and S2 normal heart sound present : General: Yes CVA tenderness on the right Back/Spine/Pelvis: Back: CVA tenderness Skin: Rashes: no rashes Wounds: no wounds Neuro: General: patient oriented x3 and CN's II-XI intact bilaterally Cranial nerves: Yes CN's II-XII intact bilaterally and Yes Equal, round and reactive pupils present Cognition (Neuro): normal cognition Speech: normal speech Gait exam (Neuro): Normal gait present Motor exam (neuro): 5/5 motor strength present throughout Sensory Exam: No Sensory deficit (Neuro) Extrem: General: normal to inspection, full ROM, no joint enlargement and no pedal edema Discharge Plan Discharge Attending physician on discharge: Gilberto Snow Discharging Clinician: Gilberto Snow Patient Disposition: Home, Self-Care Activity: no preference Diet: as tolerated Stand Alone Forms: General Discharge Information Follow-up/Referrals: Jacoby Rider MD [Physician] - Discharge Medications: New cefdinir 300 mg capsule 300 mg PO Q12H Qty: 10 0RF Continued Eliquis 5 mg tablet 5 mg PO Q12H metoprolol succinate 25 mg tablet extended release 24 hr 25 mg PO QAM Date of admission: 10/04/22 00:52 Primary Care Provider: Herbert Thomas Admitting Provider: Rick Rocha V. Attending physician on admission: Rick Rocha V. Condition: Stable
[2022-10-06 09:19] VITALS: PULSE 72
[2022-10-06] MEDS: PHENAZOPYRIDINE HCL 100 MG TABLET 200 MG PO (09:19)
[2022-10-06] MEDS: METOPROLOL SUCCINATE EXT REL 25 MG TABCR PO (09:19)
[2022-10-06] MEDS: APIXABAN 5 MG TABLET PO (09:19)
[2022-10-06 09:52] VITALS: BP 133/69; PULSE 68; RESP 16; TEMP 36.5; O2SAT 94
== END 2022-10-06 11:50 | disposition home or self-care (01) | DRG 690 ==
LOC: ANHED 22:52 → ANH2MED 10-04 01:04
PROVIDERS: Preventive Medicine Aerospace Medicine; Urology; Admitting Provider Internal Medicine; Emergency Provider Physician Assistant; PCP Family Medicine; Visit Provider Chiropractor
PROC: 0T9680Z Drainage of Right Ureter with Drainage Device, Via Natural or Artificial Opening Endoscopic (ICD-10-PCS; CPT 52352; principal; 2022-10-04 08:15)
DX: N13.6 Pyonephrosis (principal); I48.0 Paroxysmal atrial fibrillation; M19.90 Unspecified osteoarthritis, unspecified site; Z79.01 Long term (current) use of anticoagulants; Z87.442 Personal history of urinary calculi; Z87.891 Personal history of nicotine dependence
CPT/HCPCS: 36415; 74176; 74420; 80053; 81001; 83605; 85025; 87077; 87086; 87186; 96365; 96367; 96375; 99285; A9270; C1758; C1769; C2617; J0131; J0360; J0696; J2270; J2704; J3010; J7030; J7120

== ENCOUNTER 2022-10-22 11:20 | Outpatient (CLI) | payer MEDICARE, MEDICAID, SELFPAY ==
--- NOTE | 2022-10-22 11:28 | ECG_ITS ---
Measurements Intervals [place] Rate: 68 P: 43 MT: 205 QRS: 30 QRSD: 82 T: 56 QT: 388 QTc: 414 Interpretive Statements SINUS RHYTHM CANNOT RULE OUT SEPTAL MYOCARDIAL INFARCTION [40+ ms Q WAVE IN V1/V2], OF INDETERMINATE AGE BASELINE ARTIFACT PRESENT COMPARED TO ECG 09/26/2020 12:51:40 MYOCARDIAL INFARCT FINDING NOW PRESENT Electronically Signed On 10-22-2022 14:43:11 CDT by Stephani Campbell M.D.
[2022-10-22 12:16] LABS: INR 1.4; Prothrombin Time 16.4 Seconds (11.1-14.7)
[2022-10-22 12:17] LABS: Partial Thromboplastin Time 30.9 SECONDS (22.3-36.8)
== END 2022-10-22 11:21 | disposition home or self-care (01) ==
LOC: ANHSURGERY 11:26
PROVIDERS: PCP Family Medicine; Visit Provider Urology
DX: Z01.818 Encounter for other preprocedural examination (principal); N20.0 Calculus of kidney; I10 Essential (primary) hypertension
CPT/HCPCS: 36415; 85610; 85730; 87086; 87088; 93005

== ENCOUNTER 2022-11-01 02:24 | Day surgery (SDC) | payer MEDICARE, MEDICAID, SELFPAY ==
--- NOTE | 2022-10-18 11:39 | PC.NURSE ---
Report to the Outpatient Waiting Room, entrance under the green pavilion located off [facility], at time ___629____ on date _11/01/22 . Planned Procedure Time: ___829 . Time changes happen often and if your time is changed the preop area will call you the afternoon before. - You and your visitor will be asked to self-screen and do not enter if you have any COVID symptoms. - A mask is optional within the hospital at this time. Patients may have clear liquids (water, carbonated beverages, clear teas, apple juice) until 3 hours prior to surgery with a maximum of 20 ounces. - No food from midnight until time of surgery - Infants may have breast milk until 4 hours before surgery, formula 6 hours prior to surgery. - Children will be allowed to drink immediately following surgery. If applicable, please bring a bottle or sippy cup to assist with drinking. Juice, water, soda, and popsicles are readily available. For infants on formula, please bring formula the day of surgery. Pacifiers are allowed. Take the following medications with a SIP of water the morning of surgery: ____METOPROLOL DO NOT STOP ANY OF YOUR OTHER PRESCRIPTION MEDICATIONS PRIOR TO SURGERY ?EXCEPT THE FOLLOWING Medications to discontinue per physician ____ELIQUIS 2 DAYS PRE OP PER DR BROOKS.LAST DOSE 10/29/22 ALL VITAMINS 3 DAYS PRE OP.LAST DOSE 10/28/22 Please no make-up, nail divehi, hairspray, perfume, deodorant, or body powder the day of surgery. No jewelry (including any body piercings) or valuables the day of surgery, leave them at home. Please take a shower or bath the night before, or the morning of, surgery with an antibacterial soap. Wear comfortable, loose fitting clothing. Children are encouraged to wear pajamas. - Jewelry must be removed prior to entering the operating room. Rings and piercings that are not removed may be cut off. - The hospital will not accept responsibility for valuables. - Please leave all valuables, including medications, at home the day of surgery. If you are going home after surgery, a licensed fleet driver must drive you home. - NO public transportation without another adult if you receive anesthesia. - We recommend that an adult stay with you for 24 hours following discharge. - We also recommend that you do not drive, make important decision, drink alcoholic beverages, or take any drugs that were not prescribed by your health care provider for at least 24 hours after your discharge time. Follow any additional instructions given to you from your surgeon. If you or anyone in your household have experienced Covid symptoms in the past week, please notify your surgeon or the nurse liaison at the phone number below for possible testing. Telephone instructions given to ___PT'S DAUGHTER JESUS HSIEH and asked if any additional questions and then verbalized understanding. Patient advised to call surgeon office or pre surgery nurse liaison [phone] if any additional questions.
[2022-10-18 11:51] VITALS: BMI 21.1
--- NOTE | 2022-10-24 07:25 | PM.HPGS ---
History of Present Illness History of Present Illness Consent: Risks, benefits, and alternatives have been discussed and questions answered. Patient agrees to proceed with procedure. Chief complaint: right ureteral stone Narrative: Juany Quintero is a 71 year old female admitted several weeks ago with urinary tract infection and a 4 x 7 mm right proximal ureteral stone. She underwent ureteral stent placement and now presents for definitive right ESWL. She is aware the risk including, but not limited to, adverse cardiopulmonary events, perinephric hematoma, hematuria, need for additional procedures, Review of Systems Cardiovascular: Cardiovascular: Denies chest pain, Denies lightheadedness, Denies palpitations and Denies dyspnea Respiratory: Respiratory: Denies dyspnea Gastrointestinal: Gastrointestinal: Denies diarrhea, Denies nausea and Denies vomiting Genitourinary: Genitourinary: Denies hematuria and Denies dysuria Endocrine: Endocrine: Denies palpitations PMFSH Past Medical History Medical History Atrial fibrillation Nephrolithiasis Osteoarthritis Surgical History Surgical History History of cholecystectomy Status post laser lithotripsy of ureteral calculus January 2020 Family History Family History Mother Carcinoma of colon Father DVT (deep venous thrombosis) Social History Social History Social History: 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 Her daughter Loretta is a durable power control officer manager for healthcare. Loretta's the only child she has. She quit smoking in 1988. The patient desires to be a full code. Primary care physician: Dr. Herbert Thomas Surrogate decision maker: Loretta Maya, daughter. Code status: Full code. Smoking packs per day: 1 Smoking cigarettes per day: 20.0 Years smoked: 10 Smoking pack-years: 10.00 Smoking status: Former smoker Tobacco type: cigarettes Second hand tobacco smoke exposure: No Smoking end date: 06/30/88 Additional smoking assessment comments: QUIT 1988 Alcohol intake: never Substance use: never Substance use type: does not use Lack of Transportation: No Lack of Food: Never True Current Housing: I Have Housing Concerned About Future Housing: No Difficulty Paying Gas/Electric Bills: No Difficulty Paying for Meds: No Currently Unemployed: No Education: High School Diploma/GED Difficulty w/ Childcare or Family Care: No Living arrangements: with family Additional living arrangements comments: The patient lives in [place] with her grandson and 2 dogs. 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 Gender identity (if verbalized by the patient): Female Spiritual care concerns: No Meds Home Medications and Allergies Home Medications Medication Instructions Recorded Confirmed Type apixaban 5 mg tablet (Eliquis) 5 mg PO Q12H 09/05/20 10/18/22 History metoprolol succinate 25 mg 25 mg PO QAM 10/04/22 10/18/22 History tablet,extended release 24 hr cholecalciferol (vitamin D3) 1,250 1,250 mcg PO WEEKLY 10/18/22 10/18/22 History mcg (50,000 unit) tablet lisinopril 10 mg tablet 10 mg PO DAILY 10/18/22 10/18/22 History Allergies Allergy/AdvReac Type Severity Reaction Status Date / Time No Known Allergies Allergy Verified 10/18/22 11:30 Exam Const: General: no acute distress Resp: Effort & Inspection: normal respiratory effort GI: Inspection: non-distended GI Palp: No abdominal tenderness and No Guarding due to palpation present (GI) Auscultation: normal bowel sounds Assessment and Plan Assessment and plan (1) Bilateral renal stones: Code(s): N20.0 - Calculus of kidney Status: Acute
--- NOTE | 2022-10-31 14:16 | WPDANESEPPF ---
Anes - Initial Pre Proc Eval Procedure: Operation Date: 11/01/22 08:30 Proposed Procedures p Right Extracorporeal Shock Wave Lithotripsy - Jacoby Rider MD Date/Time: 10/31/22 14:16 Surgeon: Jacoby Rider MD Pre Op Diagnosis: right ureteral stone Patient Data Age: 71 Gender: F Height: 1.7 m Weight: 61.25 kg Allergies Allergy/AdvReac Type Severity Reaction Status Date / Time No Known Allergies Allergy Verified 10/18/22 11:30 Home Medications Medication Instructions Recorded Confirmed Type apixaban 5 mg tablet (Eliquis) 5 mg PO Q12H 09/05/20 10/18/22 History metoprolol succinate 25 mg 25 mg PO QAM 10/04/22 10/18/22 History tablet,extended release 24 hr cholecalciferol (vitamin D3) 1,250 1,250 mcg PO WEEKLY 10/18/22 10/18/22 History mcg (50,000 unit) tablet lisinopril 10 mg tablet 10 mg PO DAILY 10/18/22 10/18/22 History Patient hx anesthesia problems: none Family hx anesthesia problems: none Results Review: All pre-operative results and documents have been reviewed as part of the pre-operative evaluation. [facility] Past Medical History Medical History (Updated 10/31/22 @ 14:17 by Teo Fitzgerald MD) A-fib Atrial fibrillation Elevated LFTs Hydroureteronephrosis Left renal stone Metabolic encephalopathy Nephrolithiasis Osteoarthritis Paroxysmal atrial fibrillation Thrombocytopenia Surgical History Surgical History History of cholecystectomy Status post laser lithotripsy of ureteral calculus January 2020 Family History Family History Mother Carcinoma of colon Father DVT (deep venous thrombosis) Social History Social History Social History: The patient is the patient is retired from [employer] Her daughter Loretta is a durable power securities attorney for healthcare. Loretta's the only child she has. She quit smoking in 1988. The patient desires to be a full code. Primary care physician: Dr. Herbert Thomas Surrogate decision maker: Loretta Maya, daughter. Code status: Full code. Smoking packs per day: 1 Smoking cigarettes per day: 20.0 Years smoked: 10 Smoking pack-years: 10.00 Smoking status: Former smoker Tobacco type: cigarettes Second hand tobacco smoke exposure: No Smoking end date: 06/30/88 Additional smoking assessment comments: QUIT 1988 Alcohol intake: never Substance use: never Substance use type: does not use Lack of Transportation: No Lack of Food: Never True Current Housing: I Have Housing Concerned About Future Housing: No Difficulty Paying Gas/Electric Bills: No Difficulty Paying for Meds: No Currently Unemployed: No Education: High School Diploma/GED Difficulty w/ Childcare or Family Care: No Living arrangements: with family Additional living arrangements comments: The patient lives in [place] with her grandson and 2 dogs. 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 Gender identity (if verbalized by the patient): Female Spiritual care concerns: No Anes - Eval Final PreProcedure Day of Procedure 10/31/22 14:16 Patient weight: normal Heart: regular rate and rhythm Lungs: clear to auscultation and normal air movement Airway: Mallampati scale class 1 Neurological: alert and oriented Last oral intake: >/= 8 hours ASA classification: III Emergent: no Anesthetic plan: proceed Anesthesia type and monitoring: general LMA and standard monitoring Results Review: All pre-operative results and documents have been reviewed as part of the pre-operative evaluation. Informed Consent: The patient's anesthetic plan and its attendant risks and benefits were discussed with the patient/family/POA. Questions were solicited and answers provided to the satisfaction of the patient/family/POA.
--- NOTE | ~2022-11-01 | CT_ITS ---
Non-contrast CT scan of the Abdomen and Pelvis Clinical indication: Kidney stone Technique: 2.5 mm axial scans were obtained through the abdomen and pelvis without intravenous or or al contrast. Dose reduction technique was used on this scan by utilizing automated exposure control a nd iterative reconstruction technique. The dose-length product (DLP) was 178.31 mGy-cm. COMPARISON: 10/03/2022 Findings: Images through the lung bases reveal no abnormalities. There is persistent moderate right hydronephrosis, but the previously noted right ureteral stone is n o longer present. There is no stone at the right lower pole the kidney, which could reflect retrograd e migration of the previously noted ureteral stone. Right renal cyst unchanged. Multiple left renal s tones of the left renal pelvis and left lower renal pole are similar to prior exam. No left hydroneph rosis. The liver, spleen, pancreas, and adrenals appear normal. Cholecystectomy clips are present. There is aneurysmal dilatation of the infrarenal abdominal aorta to 3.4 cm. There is no evidence of bowel obstruction. Sigmoid diverticulosis noted. Images through the pelvis were performed. There is no evidence of ascites or lymphadenopathy. Urinary bladder unremarkable aside from the distal stent in place. No adnexal mass seen. Impression: Probable proximal migration of the previously noted right ureteral stone back into the right lower po le the kidney. Persistent moderate hydronephrosis and right ureteral stent in place. Multiple left renal stones are unchanged from prior exam. No left hydronephrosis. 3.4 cm infrarenal abdominal aortic aneurysm. Reviewed, dictated and finalized at [facility]. Impression: Probable proximal migration of the previously noted right ureteral stone back i nto the right lower pole the kidney. Persistent moderate hydronephrosis and right ureteral stent in place. Multiple left renal stones are unchanged from prior exam. No left hydronephrosi s. 3.4 cm infrarenal abdominal aortic aneurysm.
--- NOTE | ~2022-11-01 | XR_ITS ---
Supine and upright views of the abdomen Clinical history: Lithotripsy COMPARISON: CT dated 10/03/2022 Findings: Bowel gas pattern is nonspecific. No evidence for obstruction or free air. Right ureteral s tent is in place. Multiple left renal stones are present, measuring up to 1.8 cm in diameter, similar to prior CT scan. No definite stone along the course of the ureteral stent. Osseous structures are i ntact. Impression: Right ureteral stent in place. No definite stone along the course of the stent. Multiple left renal stones, similar to prior CT scan. Reviewed, dictated and finalized at location . Impression: Right ureteral stent in place. No definite stone along the course of the stent. Multiple left renal stones, similar to prior CT scan.
[2022-11-01 06:45] VITALS: BP 167/78; PULSE 74; RESP 20; TEMP 36.2; O2SAT 100
--- NOTE | 2022-11-01 06:49 | WPDHPUPDATE1 ---
History and Physical Update Update Date/Time: 11/01/22 06:49 History and Physical has been reviewed, including an updated exam of the patient. There are NO changes in the patient's condition. Risks, benefits, and alternatives have been discussed and questions answered. Patient agrees to proceed with procedure.
[2022-11-01] MEDS: LACTATED RINGERS 1,000 ML 30 ML IV CONT (07:20)
[2022-11-01] MEDS: ceFAZolin 2 GM/D5W 50 ML 2 GM/50 ML BAG IVPB (08:26)
--- NOTE | 2022-11-01 08:57 | P.OP_ITS ---
Procedure Note - Detailed Date of Procedure 11/01/22 Pre-op Diagnosis Bilateral renal stones Post-op Diagnosis Same Procedure Performed 1. Cystoscopy with right ureteral stent removal. 2. Right ESWL Surgeon Jacoby Rider MD Anesthesia General Description of Procedure The patient was brought to the operative suite where she was placed in the frog- legged position on the Dornier lithotripter table. Rigid cystoscopy was undertaken with a 19F flexible cystoscopy. Her urethra and bladder neck were endoscopically normal. The bladder mucosa was normal and there was a single, orthotopic ureteral orifice bilaterally. The tip of her indwelling stent is grasped and is removed with ease. The patient was then repositioned in the supine position and the focal point of the lithotriptor was placed at a 6-7mm right lower pole renal calculus. A total of 2500 shocks were delivered at a power setting of 3. There appeared to be good fragmentation of the stone. The patient tolerated the procedure well and was taken to the recovery room in good condition. Drains No Packing No Pathology None sent
[2022-11-01 09:10] VITALS: BP 169/95; PULSE 67; RESP 12; TEMP 36.3; O2SAT 100
[2022-11-01 09:25] VITALS: BP 176/68; PULSE 58; RESP 12; O2SAT 100
[2022-11-01 09:40] VITALS: BP 167/77; PULSE 59; RESP 12; O2SAT 100
[2022-11-01 09:50] VITALS: BP 131/98; PULSE 60
[2022-11-01 10:20] VITALS: BP 147/57; PULSE 55
--- NOTE | 2022-11-01 13:10 | SUR.PHASEII ---
1015: Dr. Rider aware of quater size hematoma to right flank. He said it was okay at this point and patient could go home. He came to outpatient room and visually looked at the site himself.
== END 2022-11-01 10:45 | disposition home or self-care (01) ==
PROVIDERS: PCP Family Medicine; Visit Provider Urology
PROC: (CPT 50590; principal; 2022-11-01 08:30)
DX: N20.0 Calculus of kidney (principal); I48.0 Paroxysmal atrial fibrillation; Z79.01 Long term (current) use of anticoagulants; Z87.891 Personal history of nicotine dependence
CPT/HCPCS: 52310; 50590; 36415; 74018; 74176; 85610; J0690; J1100; J2405; J2704; J3010; J7120

== ENCOUNTER 2023-02-11 16:49 | Emergency (ER) | payer MEDICARE, MEDICAID, SELFPAY ==
--- NOTE | ~2023-02-11 | XR_ITS ---
EXAMINATION: XR chest 2V Exam Date/Time: 02/11/2023 18:30 CDT HISTORY: cough Comparison: 09/26/2020. RESULT: Lines, tubes, and devices: Cholecystectomy clips. Lungs and pleura: Senescent change, otherwise clear. Cardiomediastinal silhouette: Stable aortic ectasia. Other: No acute osseous or upper abdominal finding. Stable sclerotic lesion in the posterior lateral left fifth rib. IMPRESSION: No acute cardiopulmonary process. Reviewed, dictated and finalized at location [facility].
[2023-02-11 16:45] VITALS: BP 140/77; PULSE 124; RESP 16; TEMP 37.2; O2SAT 98
--- NOTE | 2023-02-11 17:59 | ECG_ITS ---
Measurements Intervals [place] Rate: 101 P: 50 NC: 195 QRS: 11 QRSD: 93 T: 52 QT: 310 QTc: 402 Interpretive Statements SINUS TACHYCARDIA BASELINE ARTIFACT POOR R-WAVE PROGRESSION BORDERLINE ECG COMPARED TO ECG 10/22/2022 11:54:51 SINUS TACHYCARDIA NOW PRESENT Electronically Signed On 02-12-2023 15:17:19 CDT by Neymar Pugh M.D.
--- NOTE | 2023-02-11 18:04 | ED.FEVER ---
HPI - Fever General Chief Complaint: Fever <EMILI Hinkle Last Filed: 02/11/23 23:12> Stated Complaint: fever, weak, dizzy <Reema Hernandez PA-C - Last Filed: 02/11/23 23:12> Time Seen by Provider: 02/11/23 16:57 <EMILI Hinkle Last Filed: 02/11/23 23:12> History of Present Illness HPI Narrative: 72-year-old female with a history of urosepsis, septic ureterolithiasis, and atrial fibrillation reports with her daughter and granddaughter at bedside for fatigue and generalized weakness since today. Patient states she felt normal when she went to bed last night but is been feeling ill today. Per the family at bedside, the patient was confused earlier today. States while she was talking on the phone to her daughter, she began dialing buttons on her phone which is abnormal for her Family reports that the patient has frequent UTIs and becomes septic from them and is concerned she has another UTI. The patient is reporting lightheadedness and fatigue. She denies chest pain or shortness of breath, abdominal pain, back pain or flank pain, neck pain or headache, vision changes, focal numbness or weakness, dysuria or hematuria, rashes, fever. The patient does report a intermittent cough for a long time , but states it may have been worse today. Patient lives at home with her grandson. <EMILI Hinkle Last Filed: 02/11/23 23:12> Related Data Home Medications: Home Medications Medication Instructions Recorded Confirmed apixaban 5 mg tablet (Eliquis) 5 mg PO Q12H 09/05/20 10/18/22 metoprolol succinate 25 mg 25 mg PO QAM 10/04/22 10/18/22 tablet,extended release 24 hr cholecalciferol (vitamin D3) 1,250 1,250 mcg PO WEEKLY 10/18/22 10/18/22 mcg (50,000 unit) tablet lisinopril 10 mg tablet 10 mg PO DAILY 10/18/22 10/18/22 <EMILI Hinkle Last Filed: 02/11/23 23:12> Allergies/Adverse Reactions: Allergies Allergy/AdvReac Type Severity Reaction Status Date / Time No Known Allergies Allergy Verified 02/11/23 17:00 <Reema Hernandez PA-C - Last Filed: 02/11/23 23:12> Review of Systems Review of Systems: CONSTITUTIONAL: Denies fever, chills EYES: Denies visual changes, redness, or discharge. ENT: Denies rhinorrhea, congestion, sore throat, or otalgia. CARDIOVASCULAR: Denies chest pain, palpitations, or edema. RESPIRATORY: Denies cough or dyspnea. GASTROINTESTINAL: Denies abdominal pain, nausea, vomiting, or diarrhea. GENITOURINARY: Denies dysuria or hematuria. SKIN: Denies rash or itching. MUSCULOSKELETAL: Denies back pain, joint pain, or myalgia. NEUROLOGIC: Denies headache, numbness, dizziness PSYCHIATRIC: Denies anxiety or depression. <Reema Hernandez PA-C - Last Filed: 02/11/23 23:12> [facility] Past Medical History Medical History: Medical History A-fib Atrial fibrillation Elevated LFTs Hydroureteronephrosis Left renal stone Metabolic encephalopathy Nephrolithiasis Osteoarthritis Paroxysmal atrial fibrillation Thrombocytopenia <Reema Hernandez PA-C - Last Filed: 02/11/23 23:12> Surgical History Surgical History: Surgical History History of cholecystectomy Status post laser lithotripsy of ureteral calculus January 2020 <Reema Hernandez PA-C - Last Filed: 02/11/23 23:12> Family History Family History: Family History Mother Carcinoma of colon Father DVT (deep venous thrombosis) <Reema Hernandez PA-C - Last Filed: 02/11/23 23:12> Social History Social History: Social History Social History: 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 Her daughter Loretta is a durable power deputy commonwealth's attorney for healthcare. Loretta's the only child she has. She quit
[2023-02-11] MEDS: SODIUM CHLORIDE 0.9% IV 1,000 ML 999 ML IV CONT ×2 (19:00→20:36)
[2023-02-11 19:13] LABS: Basophils Percent Auto 0.2 % (0.2-1.2); Hematocrit 37.9 % (37.0-47.0); Hemoglobin 12.5 g/dL (12.0-15.0); Immature Granulocyte Absolute 0.05 K/mm3 (0.00-0.031); Immature Granulocyte Percent A 0.5 % (0-0.5); Lymphocytes Absolute Auto 0.47 K/mm3 (0.9-3.2); Lymphocytes Percent Auto 4.5 % (18.3-44.2); Mean Corpuscular Hemoglobin 30.9 pg (26-34); Mean Corpuscular Volume 93.6 fl (80-100); Mean Platelet Volume 10.6 fl (7.4-10.4); Monocytes Absolute Auto 0.8 K/mm3 (0.1-0.6); Monocytes Percent Auto 7.8 % (2.6-8.5); Platelet Count Result 190 k/mm3 (150-375); Red Blood Count 4.05 M/mm3 (4.2-5.4); Red Cell Distribution Width 13.9 % (11.5-14.5); White Blood Count 10.4 K/mm3 (4.5-10.0)
[2023-02-11 19:28] LABS: INR 1.2; Prothrombin Time 15.8 Seconds (11.1-14.7)
[2023-02-11 19:29] LABS: Partial Thromboplastin Time 33.3 SECONDS (22.3-36.8)
[2023-02-11 19:31] LABS: Lactic Acid Reflex 0.8 mmol/L (0.7-2.0)
[2023-02-11 19:32] LABS: Alanine Aminotransferase 13 U/L (6-35); Albumin Level 4.5 g/dL (3.5-5.1); Alkaline Phosphatase 117 U/L (38-126); Anion Gap 8 mmol/L (8-16); Aspartate Amino Transferase 22 U/L (14-36); Bilirubin,Total 1.6 mg/dL (0.2-1.3); Blood Urea Nitrogen 23 mg/dL (7-17); Calcium 10.6 mg/dL (8.4-10.2); Carbon Dioxide 26 mmol/L (22-30); Chloride 101 mmol/L (98-107); Estimated CRCL calculation 36 ml/min; Estimated Glomerular Filt Rate 44; Glucose 121 mg/dL (65-110); Potassium 4.5 mmol/L (3.4-5.0); Sodium 135 mmol/L (137-145)
--- NOTE | 2023-02-11 19:34 | PC.NURSE ---
This RN assumed care of patient. THis RN took patient report from MADELINE Miguel.
[2023-02-11 20:03] LABS: Influenza A QL RT-PCR Negative (Negative); Influenza B QL RT-PCR Negative (Negative); SARS-CoV-2 RNA PCR Negative (Negative)
--- NOTE | 2023-02-11 20:36 | PC.NURSE ---
Pt guests at bedside questioned this RN on how long it would be until pt could go home. This RN informed pt and pt family at bedside, urine was needed for a urine analysis. I reminded pt and pt family that pt was there due to suspected UTI and urine was needed in order to confirm. Pt family at bedside stated they were ready to go because they have an hour drive . I informed pt and pt family of their options per EDP Myra. Pt and pt family expressed they wanted to leave. Pt family then expressed that they were not updated on what lab work showed, and that they were waiting on pt to urinate. Pt was then given the option to urinate. pt went to pee and then missed the cup. Per EDP Myra another liter of fluids were started.
--- NOTE | 2023-02-11 20:47 | PC.NURSE ---
This RN per EDP Myra gave pt a urine hat and water to help encourage urination along with helping patient collect urine for another attempt at urine collection.
[2023-02-11 21:34] VITALS: BP 160/89; PULSE 102; RESP 23; O2SAT 100
[2023-02-11 22:00] LABS: Appearance Urine Cloudy (Clear); Bacteria Urine 4+ /hpf; Bilirubin Urine Negative (Negative); Blood Urine 3+ (Negative); Color Urine Yellow (Yellow); Glucose Urine UA Negative (Negative); Ketones Urine 2+ mg/dL (Negative); Leukocyte Esterase Ur 3+ LEU/UL (Negative); Nitrate Urine Positive (Negative); Non Pathogenic Casts 0-2; Protein Urine 1+ mg/dL (Negative); RBC Urine 51-100 /hpf (0-2); Specific Grav Ur 1.014 (1.001-1.035); Squamous Epithelial Cell Urine None seen /hpf (Few); Urobilinogen Urine 0.2 mg/dL (<2.0); WBC Urine >100 /hpf; pH Urine 5.5 (5.0-9.0)
[2023-02-11 22:05] LABS: Add Urine Microscopic? YES
[2023-02-11 22:10] VITALS: BP 147/82; PULSE 104; RESP 24; O2SAT 100
[2023-02-11 23:06] VITALS: BP 160/98; PULSE 105; RESP 22; O2SAT 100
== END 2023-02-11 23:16 | disposition home or self-care (01) ==
PROVIDERS: Emergency Provider Physician Assistant; PCP Family Medicine
DX: N39.0 Urinary tract infection, site not specified (principal); Z20.822 Contact with and (suspected) exposure to COVID-19; I48.0 Paroxysmal atrial fibrillation; G93.41 Metabolic encephalopathy; M19.90 Unspecified osteoarthritis, unspecified site; Z87.442 Personal history of urinary calculi; Z87.891 Personal history of nicotine dependence; Z90.49 Acquired absence of other specified parts of digestive tract; Z79.01 Long term (current) use of anticoagulants; R00.0 Tachycardia, unspecified; R94.31 Abnormal electrocardiogram [ECG] [EKG]
CPT/HCPCS: 36415; 71046; 80053; 81001; 83605; 85025; 85610; 85730; 87077; 87086; 87186; 87636; 93005; 96361; 96365; 99284; J0696; J7030

== ENCOUNTER 2023-06-03 10:57 | Outpatient (CLI) | payer MEDICARE, MEDICAID, SELFPAY ==
[2023-06-03 11:56] LABS: Basophils Percent Auto 0.3 % (0.2-1.2); Eosinophils Absolute Auto 0.1 K/mm3 (0-0.3); Eosinophils Percent Auto 1.2 % (0-4.4); Hematocrit 38.9 % (37.0-47.0); Hemoglobin 12.4 g/dL (12.0-15.0); Immature Granulocyte Absolute 0.02 K/mm3 (0.00-0.031); Immature Granulocyte Percent A 0.3 % (0-0.5); Lymphocytes Absolute Auto 1.36 K/mm3 (0.9-3.2); Lymphocytes Percent Auto 23.5 % (18.3-44.2); Mean Corpuscular HGB Conc 31.9 g/dl (32-36); Mean Corpuscular Hemoglobin 31.2 pg (26-34); Mean Corpuscular Volume 97.7 fl (80-100); Mean Platelet Volume 10.7 fl (7.4-10.4); Monocytes Absolute Auto 0.6 K/mm3 (0.1-0.6); Monocytes Percent Auto 9.7 % (2.6-8.5); Neutrophils Absolute Auto 3.8 K/mm3 (1.3-6.7); Platelet Count Result 222 k/mm3 (150-375); Red Blood Count 3.98 M/mm3 (4.2-5.4); Red Cell Distribution Width 12.3 % (11.5-14.5); White Blood Count 5.8 K/mm3 (4.5-10.0)
[2023-06-03 12:18] LABS: LDL Cholesterol Direct 110 mg/dL
[2023-06-03 12:23] LABS: Alanine Aminotransferase 10 U/L (6-35); Albumin Level 4.3 g/dL (3.5-5.1); Alkaline Phosphatase 109 U/L (38-126); Anion Gap 6 mmol/L (8-16); Aspartate Amino Transferase 19 U/L (14-36); Bilirubin,Total 0.8 mg/dL (0.2-1.3); Blood Urea Nitrogen 18 mg/dL (7-17); Calcium 10.7 mg/dL (8.4-10.2); Carbon Dioxide 29 mmol/L (22-30); Chloride 106 mmol/L (98-107); Cholesterol 223 mg/dL (0-200); Estimated Glomerular Filt Rate 54; Glucose 70 mg/dL (65-110); HDL Direct 65 mg/dL; Potassium 4.2 mmol/L (3.4-5.0); Sodium 141 mmol/L (137-145); Triglycerides 115 mg/dL (<150)
[2023-06-03 12:37] LABS: Thyroid Stimulating Hormone 0.586 uIU/mL (0.465-4.680); Total Triiodothyronine (T3) 1.16 NG/ML (0.97-1.69)
[2023-06-03 12:43] LABS: Hemoglobin A1C 4.6 % (<5.7)
[2023-06-03 12:57] LABS: Free T4 Free Thyroxine 1.16 ng/mL (0.78-2.19)
== END 2023-06-03 10:58 | disposition home or self-care (01) ==
LOC: ANHLAB 11:00
PROVIDERS: PCP Family Medicine; Visit Provider Nurse Practitioner Adult Health
DX: E78.5 Hyperlipidemia, unspecified (principal); R53.1 Weakness; R53.83 Other fatigue; I10 Essential (primary) hypertension; I48.91 Unspecified atrial fibrillation; R73.01 Impaired fasting glucose
CPT/HCPCS: 36415; 80053; 80061; 83036; 84439; 84443; 84480; 85025

== ENCOUNTER 2023-09-24 09:43 | Outpatient (CLI) | payer MEDICARE, MEDICAID, SELFPAY ==
[2023-09-24 10:56] LABS: Cholesterol 228 mg/dL (0-200); HDL Direct 70 mg/dL; Triglycerides 95 mg/dL (<150)
[2023-09-24 11:06] LABS: LDL Cholesterol Direct 128 mg/dL
== END 2023-09-24 09:44 | disposition home or self-care (01) ==
LOC: ANHLAB 09:46
PROVIDERS: PCP Family Medicine; Visit Provider Nurse Practitioner Adult Health
DX: E78.5 Hyperlipidemia, unspecified (principal)
CPT/HCPCS: 36415; 80061

== ENCOUNTER 2024-09-28 12:53 | Outpatient (CLI) | payer MEDICARE, MEDICAID, SELFPAY ==
[2024-09-28 13:56] LABS: Basophils Percent Auto 0.5 % (0.2-1.2); Eosinophils Absolute Auto 0.1 K/mm3 (0-0.3); Eosinophils Percent Auto 1.1 % (0-4.4); Hematocrit 40.2 % (37.0-47.0); Immature Granulocyte Absolute 0.01 K/mm3 (0.00-0.031); Immature Granulocyte Percent A 0.2 % (0-0.5); Lymphocytes Absolute Auto 1.42 K/mm3 (0.9-3.2); Lymphocytes Percent Auto 22.9 % (18.3-44.2); Mean Corpuscular HGB Conc 32.3 g/dl (32-36); Mean Corpuscular Hemoglobin 31.6 pg (26-34); Mean Corpuscular Volume 97.6 fl (80-100); Mean Platelet Volume 10.6 fl (7.4-10.4); Monocytes Absolute Auto 0.7 K/mm3 (0.1-0.6); Monocytes Percent Auto 11.1 % (2.6-8.5); Neutrophils Percent Auto 64.2 % (45.5-73.1); Platelet Count Result 217 k/mm3 (150-375); Red Blood Count 4.12 M/mm3 (4.2-5.4); Red Cell Distribution Width 12.3 % (11.5-14.5); White Blood Count 6.2 K/mm3 (4.5-10.0)
--- OUTSIDE RECORDS SUMMARY | 2024-09-28 14:02 | XMS_ITS | Clinical Summary ---
Author Organization [facility] [place] [address] [place] [address] Care Team Providers Care Knuckle Bender Name Role Phone No, Physician Primary Care Provider [phone] Allergies No known active allergies Medications cyanocobalamin (Vitamin B-12) 1,000 mcg tablet TAKE 1 TABLET BY MOUTH ONCE DAILY IN THE MORNING 01/24/20 20 Active metoprolol XL (TOPROL-XL) 25 mg extended release tabletIndications:P aroxysmal atrial fibrillation (HCC) Take 0.5 tablets (12.5 mg total) by mouth daily 16 tablet 11 02/28/20 20 Active Eliquis 5 mg tabletIndications:C hronic anticoagulation TAKE 1 TABLET BY MOUTH TWICE DAILY AND CALL OFFICE FOR AN APPOINTMENT 14 tablet 05/03/20 21 Active Active Problems No known active problems Surgical History Surgery Date Site/Laterality Comments KIDNEY STONE SURGERY GALLBLADDER SURGERY Medical History Medical History Date Comments Arrhythmia Family History Medical History Relation Name Comments Dementia Brother Cancer Father Cancer Mother Cancer Sister Relation Name Status Comments Brother (Age 75) Father (Age 74) Mother (Age 72) Sister (Age 60) Social History Tobacco Use Types Packs/Day Years Used Date Smoking Tobacco: Former Cigarettes Q uit: 02/27/1990 Smokeless Tobacco: Never Alcohol Use Standard Drinks/Week Comments Never 0 (1 standard drink = 0.6 oz pur e alcohol) AUDIT-C Answer Date Recorded Q1: How often do you have a drink containing alc ohol? Never 02/28/2020 Average Number of Drinks Not on file 020 Frequency of Binge Drinking Not on file 01/30 Personal Safety Answer Date Recorded Getting School Help Needed Not on file 09/13 Comments Unknown Sex and Gender Information Value Date Recorded Sex Assigned at Not on file Legal Sex Female 10:02 AM CDT Gender Identity Not on file Sexual Orientation Not on file Obstetrics History Last Filed Vital Signs Vital Sign Reading Time Taken Comments Blood Pressure 122/72 02/28/2020 11:16 AM CDT Pulse 76 02/28/2020 11:16 AM CDT Temperature - - Respiratory Rate - - Oxygen Saturation 98% 02/28/2020 11:16 AM CDT Inhaled Oxygen Concentration - - Weight 56.7 kg (125 lb) 02/28/2020 11:16 AM CDT Height 167.6 cm (5' 6 ) 02/28/2020 11:16 AM CDT Body Mass Index 20.18 02/28/2020 11:16 AM CDT Plan of Treatment Not on file Insurance MEDICARE Care Teams Knuckle Bender Relationship Specialty Start Date End Date No, Physician PCP - General 01/21/20
--- OUTSIDE RECORDS SUMMARY | 2024-09-28 14:02 | XMS_ITS | Referral Summary ---
Author Organization [facility] [place] [address] [place] [address] Care Team Providers Care Burr Grinder Name Role Phone No, Physician Primary Care Provider Allergies No known active allergies Medications cyanocobalamin [...] Active Active Problems No known active problems Social History Tobacco Use Types Packs/Day Years [...] on file Sexual Orientation Not on file Last Filed Vital Signs Vital Sign Reading [...] Not on file Insurance MEDICARE Care Teams Burr Grinder Relationship Specialty Start Date End Date No, Physician PCP - General 01/21/20
[2024-09-28 14:12] LABS: Alanine Aminotransferase 14 U/L (6-35); Albumin Level 4.6 g/dL (3.5-5.1); Alkaline Phosphatase 121 U/L (38-126); Anion Gap 10 mmol/L (4-12); Aspartate Amino Transferase 20 U/L (14-36); Bilirubin,Total 0.7 mg/dL (0.2-1.3); Blood Urea Nitrogen 17 mg/dL (7-17); Carbon Dioxide 27 mmol/L (22-30); Chloride 106 mmol/L (98-107); Cholesterol 240 mg/dL (0-200); Estimated Glomerular Filt Rate 57; Glucose 90 mg/dL (65-110); HDL Direct 61 mg/dL; Potassium 4.6 mmol/L (3.4-5.0); Sodium 143 mmol/L (137-145); Triglycerides 196 mg/dL (<150)
[2024-09-28 14:23] LABS: LDL Cholesterol Direct 112 mg/dL
== END 2024-09-28 12:54 | disposition home or self-care (01) ==
PROVIDERS: PCP Family Medicine; Visit Provider Registered Nurse
DX: E78.5 Hyperlipidemia, unspecified (principal); I10 Essential (primary) hypertension
CPT/HCPCS: 36415; 80053; 80061; 85025

== ENCOUNTER 2024-12-09 10:45 | Outpatient (CLI) | payer MEDICARE, MEDICAID, SELFPAY ==
[2024-12-09 11:22] LABS: Alanine Aminotransferase 15 U/L (6-35); Albumin Level 4.2 g/dL (3.5-5.1); Alkaline Phosphatase 95 U/L (38-126); Anion Gap 4 mmol/L (4-12); Aspartate Amino Transferase 26 U/L (14-36); Bilirubin,Total 0.7 mg/dL (0.2-1.3); Blood Urea Nitrogen 14 mg/dL (7-17); Calcium 10.8 mg/dL (8.4-10.2); Carbon Dioxide 29 mmol/L (22-30); Chloride 108 mmol/L (98-107); Cholesterol 215 mg/dL (0-200); Estimated Glomerular Filt Rate 56; Glucose 94 mg/dL (65-110); HDL Direct 59 mg/dL; Potassium 4.4 mmol/L (3.4-5.0); Sodium 141 mmol/L (137-145); Total Protein 7.2 g/dL (6.3-8.2); Triglycerides 135 mg/dL (<150)
[2024-12-09 11:33] LABS: LDL Cholesterol Direct 104 mg/dL
--- OUTSIDE RECORDS SUMMARY | 2024-12-09 11:40 | XMS_ITS | Clinical Summary ---
Author Organization [facility] [address] [facility] [address] [place] [address] Care Team Providers Care Certified Anesthesiologist Assistant Name Role Phone No, Physician Primary Care Provider [phone] Allergies No known active allergies Medications cyanocobalamin [...] 11:16 AM CDT Height 167.6 cm (5' 6) 02/28/2020 11:16 AM CDT Body Mass Index 20.18 02/28/2020 11:16 AM CDT Plan of Treatment Not on file Insurance MEDICARE Care Teams Certified Anesthesiologist Assistant Relationship Specialty Start Date End Date No, Physician PCP - General 01/21/20
--- OUTSIDE RECORDS SUMMARY | 2024-12-09 11:40 | XMS_ITS | Referral Summary ---
Author Organization [facility] [place] [address] [facility] [address] [facility] [address] [place] [address] Care Team Providers Care Airport Maintenance Chief Name Role Phone No, Physician Primary Care Provider [phone] Allergies No known active allergies Medications cyanocobalamin [...] Not on file Insurance MEDICARE Care Teams Airport Maintenance Chief Relationship Specialty Start Date End Date No, Physician PCP - General 01/21/20
== END 2024-12-09 10:46 | disposition home or self-care (01) ==
LOC: ANHLAB 10:47
PROVIDERS: PCP Family Medicine; Visit Provider Family Medicine
DX: E78.5 Hyperlipidemia, unspecified (principal)
CPT/HCPCS: 36415; 80053; 80061